=== PATIENT | female | born 1990 | race Hispanic/Latino ===

== ENCOUNTER 2020-02-04 12:16 | Emergency (ER) | payer BC ==
[2020-02-04 13:54] LABS: Absolute Lymphocytes (CBC) 1.5 K/uL (0.7-4.9); Basophils % 0.6 % (0-1.3); Hematocrit 36.4 % (36.0-45.0); Lymphocytes % 17.5 % (15.3-44.8); RBC Red Blood Cell Count 4.34 M/uL (3.86-4.86)
--- NOTE | 2020-02-04 14:30 | RAD REPORT ---
EXAM DESCRIPTION: US - Matter Eval Tm 1 - 02/04/2020 2:00 pm CLINICAL HISTORY: abd cramping, Early . COMPARISON: OB Complete dated 06/02/2017 FINDINGS: A single gestational sac is seen within the uterus. The shape of the sac is within normal limits for gestational age. A single live fetus is present with estimated gestational age of 13 weeks 3 days. Estimated date of delivery is 08/08/2020. Heart rate is 145 BPM. Posterior placenta is seen with evidence of placenta previa The maternal adnexa are within normal limits. Right ovary appears normal with normal blood flow. Left ovary was not well seen due to superimposed bowel gas. IMPRESSION: Single live early intrauterine gestation with estimated gestational age of 13 weeks 3 da ys, MARIE 08/08/2020. Posterior placenta with suspicion for placenta previa. Second-trimester follow-up obstetrical sonogra phy would be suggested.
[2020-02-04 14:35] LABS: BUN Blood Urea Nitrogen 5 mg/dL (7-18); Bicarbonate 23 mmol/L (21-32); Glucose Level 122 mg/dL (74-106); HCG, Quantitative 95183 mIU/mL (1-3); Potassium 3.5 mmol/L (3.5-5.1); Sodium Level 138 mmol/L (136-145)
--- NOTE | 2020-02-04 16:55 | ER ---
Nurse's Notes [facility] Name: Ana Maria Arnold Age: 29 yrs Sex: Female : 1990 Arrival Date: 02/04/2020 Time: 12:19 Bed 7 Private MD: Diagnosis: related conditions, unspecified, second trimester Presentation: 02/03 12:31 Chief complaint: Patient states: 13 weeks . Started having RLQ abdominal ll1 cramping for 3 weeks. Upper abd pain with N/V also. Had embryo transfer November 20. Coronavirus screen: Proceed with normal triage. Patient denies a cough. Patient denies shortness of breath or difficulty breathing. Patient denies measured and/or subjective temperature greater than 100.4F prior to today's visit. Patient denies travel on a cruise ship or to a country the [facility] currently lists as an affected area. Patient denies contact with known and/or suspected case of COVID-19. Ebola Screen: Patient denies travel to an Ebola-affected area in the 21 days before illness onset. Initial Sepsis Screen: Does the patient meet any 2 criteria? No. Patient's initial sepsis screen is negative. Does the patient have a suspected source of infection? No. Patient's initial sepsis screen is negative. Risk Assessment: Do you want to hurt yourself or someone else? Patient reports no desire to harm self or others. Onset of symptoms was January 14, 2020. 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 - Social history:: Smoking status: Patient denies any tobacco usage or history of. Patient/guardian denies using alcohol, street drugs, tobacco products. Screenin:00 Abuse screen: Denies threats or abuse. Nutritional screening: No deficits noted. em Tuberculosis screening: No symptoms or risk factors identified. Fall Risk None identified. Assessment: 13:00 General: Appears in no apparent distress. comfortable, Behavior is calm, cooperative, em appropriate for age, Denies fever. Pain: Complains of pain in right inguinal area Pain currently is 2 out of 10 on a pain scale. Pain began 3-4 weeks. Neuro: Level of Consciousness is awake, alert, obeys commands, Oriented to person, place, time, situation, Appropriate for age. Cardiovascular: Capillary refill < 3 seconds Patient's skin is warm and dry. Respiratory: Airway is patent Respiratory effort is even, unlabored, Respiratory pattern is regular, symmetrical. GI: Abdomen is flat, Bowel sounds present X 4 quads. Abd is soft and non tender X 4 quads. Reports constipation, nausea, Patient currently denies abdominal pain, vomiting. : Denies burning with urination, discharge, vaginal bleeding. Derm: Skin is intact, is healthy with good turgor, Skin is pink, warm \T\ dry. Musculoskeletal: Capillary refill < 3 seconds, Range of motion: intact in all extremities. 14:00 Reassessment: Patient appears in no apparent distress at this time. Patient and/or em family updated on plan of care and expected duration. Pain level reassessed. Patient is alert, oriented x 3, equal unlabored respirations, skin warm/dry/pink. 15:00 Reassessment: Patient appears in no apparent distress at this time. Patient and/or em family updated on plan of care and expected duration. Pain level reassessed. Patient is alert, oriented x 3, equal unlabored respirations, skin warm/dry/pink. 16:00 Reassessment: Patient appears in no apparent distress at this time. Patient and/or em family updated on plan of care and expected duration. Pain level reassessed. Patient is alert, oriented x 3, equal unlabored respirations, skin warm/dry/pink. Vital Signs: 12:31 BP 129 / 87; Pulse 88; Resp 16; Temp 99.1; Pulse Ox 100% ; Pain 2/10; ll1 15:00 BP 114 / 75; Pulse 66; Resp 18; Pulse Ox 99% on R/A; em 16:00 BP 117 / 77; Pulse 63; Resp 16; Pulse Ox 99% on R/A; em ED Course: 12:19 Patient arrived in ED. ag5 12:31 Pedro Bethea MD is Attending Physician. mh7 12:33 Triage completed. ll1 12:34 Arm band placed on Patient placed in an exam room, on a stretcher. ll1 12:40 Aniceto Díaz, RN is Primary Nurse. em 13:00 Patient has correct armband on for positive identification. Bed in low position. Call em light in reach. Pulse ox on. NIBP on. 13:57 Matter Eval Tm 1 In Process Unspecified. EDMS 14:03 Ultrasound completed. Patient tolerated well. Notified ED Physician marisol. sg3 16:46 No provider procedures requiring assistance completed. IV discontinued, intact, em bleeding controlled, No redness/swelling at site. Pressure dressing applied. Administered Medications: No medications were administered Outcome: 16:25 Discharge ordered by MD. reyes 16:49 Discharged to home ambulatory. em 16:49 Condition: stable 16:49 Discharge instructions given to patient, Instructed on discharge instructions, follow up and referral plans. Demonstrated understanding of instructions, follow-up care. 16:49 Patient left the ED. em Signatures: Dispatcher [employer] EDAniceto Kincaid, RN RN Linn Sanchez sg3 Breanna Manley [facility] Alena Thurston RN RN ll1 Pedro Bethea MD MD [facility]
--- NOTE | 2020-02-04 16:56 | EDPHYS ---
Physician Documentation [facility] Name: Ana Maria Arnold Age: 29 yrs Sex: Female : 1990 Arrival Date: 02/04/2020 Time: 12:19 Bed 7 Private MD: ED Physician Pedro Bethea HPI: 02/03 13:39 This 29 yrs old Female presents to ER via Ambulatory with complaints of mh7 Abdominal Pain, Pelvic Pain, 13 Wks Preg. 13:39 The patient presents to the emergency department with possible uterine contractions, mh7 abdominal pain, of the suprapubic area and right lower quadrant, that started 5 day(s) ago, Has had pain intermittently for 3-4 weeks, described as intermittent, sharp. The estimated gestational age is 13 weeks. course: care: private OB physician, Leakage of Fluid: none appreciated, Ultrasound: the patient had an ultrasound, Risk/complications: no obvious risks or complications are appreciated. Previous pregnancies: in previous pregnancies patient has had vaginal delivery, no complications. Associated signs and symptoms: Pertinent negatives: chest pain, diarrhea, dysuria, fever, frequency, nausea, ruptured membranes, seizure, shortness of breath, vaginal bleeding, vaginal discharge, vomiting. 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 - Social history:: Smoking status: Patient denies any tobacco usage or history of. Patient/guardian denies using alcohol, street drugs, tobacco products. ROS: 13:39 Constitutional: Negative for fever, chills, and weight loss, Eyes: Negative for injury, mh7 pain, redness, and discharge, ENT: Negative for injury, pain, and discharge, Neck: Negative for injury, pain, and swelling, Cardiovascular: Negative for chest pain, palpitations, and edema, Respiratory: Negative for shortness of breath, cough, wheezing, and pleuritic chest pain, Back: Negative for injury and pain, : Negative for injury, bleeding, discharge, and swelling, MS/Extremity: Negative for injury and deformity, Skin: Negative for injury, rash, and discoloration, Neuro: Negative for headache, weakness, numbness, tingling, and seizure, Psych: Negative for depression, anxiety, suicide ideation, homicidal ideation, and hallucinations, Allergy/Immunology: Negative for hives, rash, and allergies, Endocrine: Negative for neck swelling, polydipsia, polyuria, polyphagia, and marked weight changes, Hematologic/Lymphatic: Negative for swollen nodes, abnormal bleeding, and unusual bruising. Exam: 13:39 Constitutional: This is a well developed, well nourished patient who is awake, alert, mh7 and in no acute distress. Head/Face: Normocephalic, atraumatic. Eyes: Pupils equal round and reactive to light, extra-ocular motions intact. Lids and lashes normal. Conjunctiva and sclera are non-icteric and not injected. Cornea within normal limits. Periorbital areas with no swelling, redness, or edema. ENT: Nares patent. No nasal discharge, no septal abnormalities noted. Tympanic membranes are normal and external auditory canals are clear. Oropharynx with no redness, swelling, or masses, exudates, or evidence of obstruction, uvula midline. Mucous membranes moist. Neck: Trachea midline, no thyromegaly or masses palpated, and no cervical lymphadenopathy. Supple, full range of motion without nuchal rigidity, or vertebral point tenderness. No Meningismus. Chest/axilla: Normal chest wall appearance and motion. Nontender with no deformity. No lesions are appreciated. Cardiovascular: Regular rate and rhythm with a normal S1 and S2. No gallops, murmurs, or rubs. Normal PMI, no JVD. No pulse deficits. Respiratory: Lungs have equal breath sounds bilaterally, clear to auscultation and percussion. No rales, rhonchi or wheezes noted. No increased work of breathing, no retractions or nasal flaring. Back: No spinal tenderness. No costovertebral tenderness. Full range of motion. 13:39 Skin: Warm, dry with normal turgor. Normal color with no rashes, no lesions, and no evidence of cellulitis. MS/ Extremity: Pulses equal, no cyanosis. Neurovascular intact. Full, normal range of motion. Neuro: Awake and alert, GCS 15, oriented to person, place, time, and situation. Cranial nerves II-XII grossly intact. Motor strength 5/5 in all extremities. Sensory grossly intact. Cerebellar exam normal. Normal gait. Psych: Awake, alert, with orientation to person, place and time. Behavior, mood, and affect are within normal limits. 13:39 Abdomen/GI: Inspection: abdomen appears normal, Bowel sounds: normal, in all quadrants, Palpation: mild abdominal tenderness, in the right lower quadrant and suprapubic area, Rectal exam: the exam is deferred, because of patient request, Indicators: McBurney's point is not tender, Link's sign is negative, Rovsing's sign is negative, Obturator sign is negative, Psoas sign is negative, Liver: no appreciated palpable abnormalities, Hernia: not appreciated. Vital Signs: 12:31 BP 129 / 87; Pulse 88; Resp 16; Temp 99.1; Pulse Ox 100% ; Pain 2/10; ll1 15:00 BP 114 / 75; Pulse 66; Resp 18; Pulse Ox 99% on R/A; em 16:00 BP 117 / 77; Pulse 63; Resp 16; Pulse Ox 99% on R/A; em MDM: 13:14 Patient medically screened. mh7 16:22 Differential diagnosis: retained Ab, missed Ab, ectopic , ovarian cyst, mh7 pain. Data reviewed: vital signs, nurses notes, lab test result(s), Beta HCG: CBC, electrolytes, urinalysis, radiologic studies, ultrasound. Data interpreted: Pulse oximetry: on room air is 100 %. Interpretation: normal. Counseling: I had a detailed discussion with the patient and/or guardian regarding: the historical points, exam findings, and any diagnostic results supporting the discharge/admit diagnosis, lab results, radiology results, the need for outpatient follow up, to return to the emergency department if symptoms worsen or persist or if there are any questions or concerns that arise at home. 02/04 07:25 ED course: Well appearing, NAD, VSS. No abdominal/pelvic pain, nausea, vomiting or mh7 other complaints. Discussed all test results and findings with the patient and answered all of her questions. She will follow up with her doctor but agreed to return to the ED if worsening of symptoms or other concerns.. 02/03 13:31 Order name: Urine Dipstick--Ancillary (enter results) em1 02/03 13:31 Order name: Urine --Ancillary (enter results) em1 02/03 13:17 Order name: IV Saline Lock; Complete Time: 13:31 [facility] 02/03 13:17 Order name: US Transvaginal Ob [facility] 02/03 13:46 Order name: Basic Metabolic Panel [facility] 02/03 13:47 Order name: HCG, Quantitative [facility] 02/03 13:47 Order name: CBC with Automated Diff; Complete Time: 14:37 [facility] 02/03 13:47 Order name: ABO/RH typing [facility] 02/03 13:57 Order name: Matter Eval Tm 1 [facility] 02/03 13:17 Order name: Labs collected and sent; Complete Time: 13:31 [facility] 02/03 13:17 Order name: Urine Dipstick-Ancillary (obtain specimen); Complete Time: 13:20 [facility] 02/03 13:17 Order name: Urine Test (obtain specimen); Complete Time: 13:20 [facility] Administered Medications: No medications were administered Disposition: 02/04/20 16:25 Discharged to Home. Impression: related conditions, unspecified, second trimester. - Condition is Stable. - Discharge Instructions: Abdominal Pain During , [id number]. - Medication Reconciliation Form, Thank You Letter, Antibiotic Education, Prescription Opioid Use form. - Follow up: Private Physician; When: 2 - 3 days; Reason: Worsening of condition, Re-evaluation by your physician. - Problem is an ongoing problem. - Symptoms have improved. Signatures: Dispatcher [employer] [facility] Aniceto Díaz RN RN em Lewis, Lynsay, RN RN ll1 Pedro Bethea MD MD 7 Corrections: (The following items were deleted from the chart) 02/03 13:57 13:27 TRANSVAG OB ordered. [facility] 16:49 16:25 02/04/2020 16:25 Discharged to Home. Impression: related conditions, em unspecified, second trimester. Condition is Stable. Forms are Medication Reconciliation Form, Thank You Letter, Antibiotic Education, Prescription Opioid Use. Follow up: Private Physician; When: 2 - 3 days; Reason: Worsening of condition, Re-evaluation by your physician. Problem is an ongoing problem. Symptoms have improved. [facility]
[2020-02-04 17:19] VITALS: TEMP 99.1
[2020-02-04 17:23] VITALS: O2SAT 99
[2020-02-04 17:24] VITALS: BP 117/77
[2020-02-04 18:18] LABS: Urine Blood NEGATIVE (NEG); Urine Glucose TRACE (NEG); Urine Protein NEGATIVE (NEG); Urine Specific Gravity 1.025 (1.005-1.030)
== END 2020-02-04 16:49 | disposition home or self-care (01) ==
LOC: ER 12:16
DX: O26.891 Other specified pregnancy related conditions, first trimester (principal); Z3A.13 13 weeks gestation of pregnancy
CPT/HCPCS: 36415; 76801; 80048; 81003; 81025; 84702; 85025; 86900; 86901; 99283

== ENCOUNTER 2020-02-16 10:54 | Emergency (ER) | payer BC ==
[2020-02-16 12:23] LABS: Urine Blood NEGATIVE (NEG); Urine Glucose NEGATIVE (NEG); Urine Protein NEGATIVE (NEG); Urine Specific Gravity 1.025 (1.005-1.030); Urine pH 8.5 (5.0-7.0)
[2020-02-16] MEDS ORDERED: ONDANSETRON 4 MG/2 ML VIAL ONE (12:27)
[2020-02-16] MEDS ORDERED: NA CHLORIDE 0.9% 500 ML ONE (12:27)
[2020-02-16] MEDS ORDERED: CODEINE 30MG/APAP 300MG TAB ONE (12:27)
--- NOTE | 2020-02-16 12:41 | RAD REPORT ---
EXAM DESCRIPTION: US - Abdomen Exam Limited - 02/16/2020 12:36 pm CLINICAL HISTORY: Abdominal pain. COMPARISON: None. FINDINGS: The gallbladder wall is not thickened. A gallstone is not seen. The biliary tree is normal caliber. IMPRESSION: Unremarkable gallbladder ultrasound.
[2020-02-16 12:43] LABS: Basophils % 0.7 % (0-1.3); Hematocrit 35.5 % (36.0-45.0); Lymphocytes % 20.6 % (15.3-44.8); RBC Red Blood Cell Count 4.28 M/uL (3.86-4.86)
[2020-02-16 12:57] LABS: ALT/SGPT 17 U/L (12-78); AST/SGOT 14 U/L (15-37); Albumin 2.9 g/dL (3.4-5.0); Alkaline Phosphatase 67 U/L (45-117); BUN Blood Urea Nitrogen 4 mg/dL (7-18); Bicarbonate 24 mmol/L (21-32); Bilirubin Direct < 0.1 mg/dL (0-0.2); Bilirubin Total 0.2 mg/dL (0.2-1.0); Glucose Level 81 mg/dL (74-106); Lipase 73 U/L (73-393); Potassium 3.6 mmol/L (3.5-5.1); Protein, Total 7.3 g/dL (6.4-8.2); Sodium Level 139 mmol/L (136-145)
--- NOTE | 2020-02-16 15:06 | ER ---
Nurse's Notes [facility] Name: Ana Maria Ibarra Age: 29 yrs Sex: Female : 1990 Arrival Date: 02/16/2020 Time: 10:57 Bed 17 Private MD: Diagnosis: Abdominal and pelvic pain Presentation: 02/15 11:12 Chief complaint: Patient states: mid abd pain since 0700 today, denies n/v/d, last BM iw was yesterday and normal, denies urinary s/s, pain is sharp, constant and worse when she breathes or moves a certain way. Pt is approx 15 weeks , denies vaginal bleeding, is being seen by Dr. ibarra in [place]. Coronavirus screen: Proceed with normal triage. Patient denies a cough. Patient denies shortness of breath or difficulty breathing. Patient denies measured and/or subjective temperature greater than 100.4F prior to today's visit. Patient denies travel on a cruise ship or to a country the [facility] currently lists as an affected area. Patient denies contact with known and/or suspected case of COVID-19. Ebola Screen: Patient negative for fever greater than or equal to 101.5 degrees Fahrenheit, and additional compatible Ebola Virus Disease symptoms Patient denies exposure to infectious person. Patient denies travel to an Ebola-affected area in the 21 days before illness onset. No symptoms or risks identified at this time. Initial Sepsis Screen: Does the patient meet any 2 criteria? No. Patient's initial sepsis screen is negative. Does the patient have a suspected source of infection? No. Patient's initial sepsis screen is negative. Risk Assessment: Do you want to hurt yourself or someone else? Patient reports no desire to harm self or others. Onset of symptoms was February 16, 2020. 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 - Social history:: Smoking status: Patient denies any tobacco usage or history of. Screenin:15 Abuse screen: Denies threats or abuse. Denies injuries from another. Nutritional ca1 screening: No deficits noted. Tuberculosis screening: No symptoms or risk factors identified. Fall Risk IV access (20 points). Assessment: 12:15 General: Appears in no apparent distress. comfortable, Behavior is calm, cooperative, ca1 appropriate for age. Pain: Complains of pain in umbilical area Pain does not radiate. Pain currently is 7 out of 10 on a pain scale. Pain began 0700 today Is continuous, Aggravated by repositioning. Neuro: Level of Consciousness is awake, alert, obeys commands, Oriented to person, place, time, situation. Cardiovascular: Capillary refill < 3 seconds Patient's skin is warm and dry. Pulses are all present. Respiratory: Airway is patent Respiratory effort is even, unlabored, Respiratory pattern is regular, symmetrical, Breath sounds are clear bilaterally. GI: Abdomen is round non-distended, Bowel sounds present X 4 quads. Abd is soft X 4 quads Abdomen is tender to palpation in umbilical area. : No signs and/or symptoms were reported regarding the genitourinary system. EENT: No signs and/or symptoms were reported regarding the EENT system. Derm: Skin is intact, is healthy with good turgor, Skin is pink, warm \T\ dry. Musculoskeletal: Circulation, motion, and sensation intact. Capillary refill < 3 seconds. 12:33 Reassessment: PT to US. ca1 13:02 Reassessment: Patient appears in no apparent distress at this time. Patient and/or ca1 family updated on plan of care and expected duration. Pain level reassessed. Patient is alert, oriented x 3, equal unlabored respirations, skin warm/dry/pink. 14:05 Reassessment: Patient appears in no apparent distress at this time. Patient is alert, ca1 oriented x 3, equal unlabored respirations, skin warm/dry/pink. 15:00 Reassessment: Patient appears in no apparent distress at this time. Patient and/or ca1 family updated on plan of care and expected duration. Pain level reassessed. Patient is alert, oriented x 3, equal unlabored respirations, skin warm/dry/pink. 15:55 Reassessment: Patient appears in no apparent distress at this time. Patient is alert, ca1 oriented x 3, equal unlabored respirations, skin warm/dry/pink. Patient states feeling better. Vital Signs: 11:12 BP 125 / 82; Pulse 74; Resp 16; Temp 98.2; Pulse Ox 100% on R/A; Weight 71.67 kg; iw Height 5 ft. 1 in. (154.94 cm); Pain 7/10; 13:02 BP 100 / 67; Pulse 77; Resp 18 S; Pulse Ox 100% on R/A; ca1 14:12 BP 114 / 63; Pulse 56; Resp 16 S; Pulse Ox 100% on R/A; ca1 15:00 BP 119 / 65; Pulse 61; Resp 17 S; Pulse Ox 100% on R/A; ca1 15:55 BP 115 / 71; Pulse 68; Resp 15 S; Pulse Ox 100% on R/A; ca1 11:12 Body Mass Index 29.85 (71.67 kg, 154.94 cm) iw ED Course: 10:57 Patient arrived in ED. as 11:14 Triage completed. iw 11:15 Arm band placed on. iw 11:39 Wan Jimenez MD is Attending Physician. kdr 12:02 Annabel Paul RN is Primary Nurse. ca1 12:15 Patient has correct armband on for positive identification. Placed in gown. Bed in low ca1 position. Call light in reach. Side rails up X 1. Pulse ox on. NIBP on. Warm blanket given. 12:20 Inserted saline lock: 20 gauge in right antecubital area, using aseptic technique. ca1 ,using aseptic technique. by Ruben restorative care technician Blood collected. 12:20 Initial lab(s) drawn, by ED staff, sent to lab. ca1 12:36 US Abdomen Limited In Process Unspecified. EDMS 15:56 No provider procedures requiring assistance completed. IV discontinued, intact, ca1 bleeding controlled, No redness/swelling at site. Pressure dressing applied. Administered Medications: 12:10 Drug: Tylenol #3 (300 mg-30 mg) 2 tabs {Note: rass 0.} Route: PO; ca1 13:00 Follow up: Response: No adverse reaction; Pain is decreased; RASS: Alert and Calm (0) ca1 12:20 Drug: NS 0.9% 500 ml Route: IV; Rate: bolus; Site: right antecubital; ca1 13:00 Follow up: Response: No adverse reaction; IV Status: Completed infusion ca1 12:22 Drug: Zofran (Ondansetron) 4 mg Route: IVP; Site: right antecubital; ca1 13:20 Follow up: Response: No adverse reaction; Nausea is decreased ca1 Outcome: 15:04 Discharge ordered by . kdr 15:56 Discharged to home ambulatory. ca1 15:56 Condition: stable 15:56 Discharge instructions given to patient, Instructed on discharge instructions, follow up and referral plans. Demonstrated understanding of instructions, follow-up care. 15:56 Patient left the ED. ca1 Signatures: Dispatcher [employer] EDMS Wan Jimenez MD MD kdr Stacey Day Irene, RN RN iw Beverly, CHASIDY Jin RN ca1 Ruben Keller count includes the [facility] Corrections: (The following items were deleted from the chart) 11:15 11:12 Chief complaint: Patient states: mid abd pain since 0700 today, denies n/v/d, iw last BM was yesterday and normal, denies urinary s/s, pain is sharp, constant and worse when she breathes or moves a certain way iw 12:31 12:28 Inserted saline lock: 20 gauge in right antecubital area, using aseptic ca1 technique. dh4 12:31 12:20 Inserted saline lock: 20 gauge in right antecubital area, using aseptic ca1 technique. ca1 12:31 12:31 Initial lab(s) drawn, by ED staff, sent to lab. ca1 ca1
--- NOTE | 2020-02-16 15:06 | EDPHYS ---
Physician Documentation [facility] Name: Ana Maria Arnold Age: 29 yrs Sex: Female : 1990 Arrival Date: 02/16/2020 Time: 10:57 Bed 17 Private MD: ED Physician Wan Jimenez HPI: 02/15 12:20 This 29 yrs old Female presents to ER via Ambulatory with complaints of kdr Abdominal Pain. 12:20 The patient presents with abdominal pain in the epigastric area. Onset: The kdr symptoms/episode began/occurred suddenly, this morning. The symptoms do not radiate. Associated signs and symptoms: Pertinent positives: nausea, Pertinent negatives: anorexia, blood in stools, chest pain, constipation, diarrhea, dysuria, fever, palpitations, shortness of breath, vaginal discharge, vomiting. The symptoms are described as achy, constant, sharp, steady. Modifying factors: The symptoms are alleviated by remaining still, the symptoms are aggravated by movement. Severity of pain: At its worst the pain was severe incapacitating just prior to arrival, in the emergency department the pain is unchanged. The patient has not experienced similar symptoms in the past. 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 SAMPLE SEWER: 11:15 5, Full Term 3, Premature 0, 1, Living 3, LMP 10/2019 iw Historical: - Allergies: 11:14 No Known Allergies; iw - Home Meds: 11:14 Vitamin 27-0.8 mg Oral tab 1 tab once daily [Active]; iw - PMHx: 11:15 None; iw - PSHx: 11:14 breast reduction; iw - Immunization history:: Adult Immunizations. - Social history:: Smoking status: Patient denies any tobacco usage or history of. ROS: 12:20 Constitutional: Negative for fever, chills, and weight loss, Eyes: Negative for injury, kdr pain, redness, and discharge, ENT: Negative for injury, pain, and discharge, Neck: Negative for injury, pain, and swelling, Cardiovascular: Negative for chest pain, palpitations, and edema, Respiratory: Negative for shortness of breath, cough, wheezing, and pleuritic chest pain, Back: Negative for injury and pain, : Negative for injury, bleeding, discharge, and swelling, MS/Extremity: Negative for injury and deformity, Skin: Negative for injury, rash, and discoloration, Neuro: Negative for headache, weakness, numbness, tingling, and seizure activity. Psych: Negative for depression, anxiety, suicide ideation, homicidal ideation, and hallucinations, Allergy/Immunology: Negative for hives, rash, and allergies, Endocrine: Negative for neck swelling, polydipsia, polyuria, polyphagia, and marked weight changes, Hematologic/Lymphatic: Negative for swollen nodes, abnormal bleeding, and unusual bruising. 12:20 Abdomen/GI: Positive for abdominal pain, nausea, Negative for vomiting, diarrhea, constipation, abdominal cramps, abdominal distension, anorexia, dysphagia, hematemesis, black/tarry stool, rectal pain, rectal bleeding, bowel incontinence. Exam: 12:20 Constitutional: This is a well developed, well nourished patient who is awake, alert, kdr and in mild distress. Head/Face: Normocephalic, atraumatic. Eyes: Pupils equal round and reactive to light, extra-ocular motions intact. Lids and lashes normal. Conjunctiva and sclera are non-icteric and not injected. Cornea within normal limits. Periorbital areas with no swelling, redness, or edema. Neck: Trachea midline, no thyromegaly or masses palpated, and no cervical lymphadenopathy. Supple, full range of motion without nuchal rigidity, or vertebral point tenderness. No Meningismus. Chest/axilla: Normal chest wall appearance and motion. Nontender with no deformity. No lesions are appreciated. Cardiovascular: Regular rate and rhythm with a normal S1 and S2. No gallops, murmurs, or rubs. Normal PMI, no JVD. No pulse deficits. Respiratory: Lungs have equal breath sounds bilaterally, clear to auscultation and percussion. No rales, rhonchi or wheezes noted. No increased work of breathing, no retractions or nasal flaring. Back: No spinal tenderness. No costovertebral tenderness. Full range of motion. Skin: Warm, dry with normal turgor. Normal color with no rashes, no lesions, and no evidence of cellulitis. MS/ Extremity: Pulses equal, no cyanosis. Neurovascular intact. Full, normal range of motion. Neuro: Awake and alert, GCS 15, oriented to person, place, time, and situation. Cranial nerves II-XII grossly intact. Motor strength 5/5 in all extremities. Sensory grossly intact. Cerebellar exam normal. Normal gait. Psych: Awake, alert, with orientation to person, place and time. Behavior, mood, and affect are within normal limits. Vital Signs: 11:12 BP 125 / 82; Pulse 74; Resp 16; Temp 98.2; Pulse Ox 100% on R/A; Weight 71.67 kg; iw Height 5 ft. 1 in. (154.94 cm); Pain 7/10; 13:02 BP 100 / 67; Pulse 77; Resp 18 S; Pulse Ox 100% on R/A; ca1 14:12 BP 114 / 63; Pulse 56; Resp 16 S; Pulse Ox 100% on R/A; ca1 15:00 BP 119 / 65; Pulse 61; Resp 17 S; Pulse Ox 100% on R/A; ca1 15:55 BP 115 / 71; Pulse 68; Resp 15 S; Pulse Ox 100% on R/A; ca1 11:12 Body Mass Index 29.85 (71.67 kg, 154.94 cm) iw MDM: 15:04 Patient medically screened. kdr 15:32 Data reviewed: vital signs, nurses notes, lab test result(s), radiologic studies. kdr Counseling: I had a detailed discussion with the patient and/or guardian regarding: the historical points, exam findings, and any diagnostic results supporting the discharge/admit diagnosis, lab results, radiology results, the need for outpatient follow up. ED course: The patient was improved but not resolved at time of discharge. She had T#3 at home and did not require further pain medication or Rx on discharge. She was otherwise happy with the care provided and the plan for discharge and follow-up. 02/15 12:12 Order name: Basic Metabolic Panel; Complete Time: 13:57 kdr 02/15 12:12 Order name: CBC with Diff; Complete Time: 13:57 kdr 02/15 12:12 Order name: Hepatic Function; Complete Time: 13:57 kdr 02/15 12:12 Order name: Lipase; Complete Time: 13:57 kdr 02/15 12:13 Order name: Urine Dipstick--Ancillary (enter results); Complete Time: 12:39 em1 02/15 12:13 Order name: Urine --Ancillary (enter results); Complete Time: 12:39 em1 02/15 12:12 Order name: IV Saline Lock; Complete Time: 12:33 kdr 02/15 12:12 Order name: Labs collected and sent; Complete Time: 12:33 kdr 02/15 12:12 Order name: US Abdomen Limited; Complete Time: 13:57 kdr Administered Medications: 12:10 Drug: Tylenol #3 (300 mg-30 mg) 2 tabs {Note: rass 0.} Route: PO; ca1 13:00 Follow up: Response: No adverse reaction; Pain is decreased; RASS: Alert and Calm (0) ca1 12:20 Drug: NS 0.9% 500 ml Route: IV; Rate: bolus; Site: right antecubital; ca1 13:00 Follow up: Response: No adverse reaction; IV Status: Completed infusion ca1 12:22 Drug: Zofran (Ondansetron) 4 mg Route: IVP; Site: right antecubital; ca1 13:20 Follow up: Response: No adverse reaction; Nausea is decreased ca1 Disposition: 02/16/20 15:04 Discharged to Home. Impression: Abdominal and pelvic pain. - Condition is Stable. - Discharge Instructions: Abdominal Pain, Adult, [id number]. - Medication Reconciliation Form, Thank You Letter, Prescription Opioid Use form. - Follow up: Private Physician; When: 2 - 3 days; Reason: If symptoms return, Further diagnostic work-up, Recheck today's complaints, Continuance of care, Re-evaluation by your physician. - Problem is new. - Symptoms have improved. Signatures: Dispatcher [employer] EDMS Wan Jimenez MD MD kdr Mariela Lazcano RN RN iw Annabel Paul RN RN ca1 Corrections: (The following items were deleted from the chart) 15:56 15:04 02/16/2020 15:04 Discharged to Home. Impression: Abdominal and pelvic pain. ca1 Condition is Stable. Forms are Medication Reconciliation Form, Thank You Letter, Antibiotic Education, Prescription Opioid Use. Follow up: Private Physician; When: 2 - 3 days; Reason: If symptoms return, Further diagnostic work-up, Recheck today's complaints, Continuance of care, Re-evaluation by your physician. Problem is new. Symptoms have improved. kdr
[2020-02-16 16:17] VITALS: TEMP 98.2; O2SAT 100
[2020-02-16 16:22] VITALS: BP 115/71
== END 2020-02-16 15:56 | disposition home or self-care (01) ==
LOC: ER 10:54
DX: O26.892 Other specified pregnancy related conditions, second trimester (principal); R10.2 Pelvic and perineal pain
CPT/HCPCS: 96361; 85025; 80048; 36415; 81025; 80076; 81003; 83690; 76705; 96374; 99284; J7040; J2405

== ENCOUNTER 2023-03-27 15:01 | Emergency (ER) | payer BC, OTHER ==
--- OUTSIDE RECORDS SUMMARY | 2023-03-27 15:03 | XMS REPORT | Continuity of Care Document ---
:1990 Author Organization [facility] t Address [address] [facility]. [address] [place] [address] Care Team Providers Name Role Phone Maria Arnold Attending Clinician Unavailable Maria Arnold Admitting Clinician Unavailable Physician, No Primary or Family Admitting Clinician Unavaila ble Payers Payer Name Policy Type Policy Number Effective Date Expiration Date S ource Problems This patient has no known problems. Allergies, Adverse Reactions, Alerts Allergy Allergy Status Severity Reaction(s) Onset Inactive Treating Comm ents Source Name Type Date Date Clinician No Known DA Active U 2020- [facility] [place] No Known DA Active U 2019- [facility] [place] No Known DA Active U 2020-1 [facility] [place] No Known DA Active U 2019-1 [facility] 09[facility] [place] Medications This patient has no known medications. Procedures Procedure Date / Time Performed Performing Clinician Ana santa [id number] 2020-08-02 00:00:00 COOJA.05 [facility] [id number] 2020-08-02 00:00:00 COOJA.05 [facility] Encounters Start End Encounter Admission Attending Care Care Encounter Source Date/Time Date/Time Type Type Clinicians Facility Department ID 2020-07-15 Inpatient Clayton, [facility] AURELIA [id number] [facility] 13:31:00 Jacquin 60 [facility] 2020-06-13 Inpatient EL Clayton, [facility] LD [id number] [facility] 11:58:00 Jacquin 19 [facility] 2020-07-12 2020-07-12 Outpatient Clayton, [facility] RADI [id number] [facility] 10:00:00 10:00:00 Jacquin 01 [facility] 2020-03-22 2020-03-22 Outpatient Clayton, [facility] RADI [id number] [facility] 10:00:00 10:00:00 Jacquin 75 [facility] 2020-02-27 2020-02-27 Outpatient Clayton, [facility] RADI [id number] [facility] 11:00:00 11:00:00 Jacquin 97 [facility] Results Test Description Test Time Test Comments Results Result Comments Source FALLOPIAN TUBE,BIOPSY 2020-08-06 18:34:00 Test Item Value Reference Range Interpretation Comme nts FALLOPIAN RUN DATE: TUBE,BIOPSY 08/13/20 [facility] PAGE 1 RUN TIME: 1216 Specimen Inquiry RUN USER: INTERFACE (test code = PATIENT: FALLBX) CAITLYN ARNOLD [id number] LOC: FATUMA #: [id number] AGE/SX: 29/F ROOM: [facility] RE08/02/20REG DR: Esther Arnold MD : [birth year] BED: A DIS: 08/05/20 STATUS: DIS IN TLOC: SPEC #: [id number] RECD: 008 STATUS: BLAKE KHALIL #: [id number] OSMAN: 08/03/20- SUBM DR: Maria Arnold MD ENTERED: 08/03/20 SP TYPE: FALLBX OTHR DR: ORDERED: LEVEL IV CODES: Q50064 - FALLOPIAN TUBE PROCEDURES: LEVEL IV (Incomplete) TISSUES: FALLOPIAN TUBE, NOS - LEFT FALLOPIAN TUBE CYSTS CLINICAL HISTORY 29 ye ar old, 39.1 weeks, (kr) FINAL DIAGNOSIS Specimen designated "left fallopian tube cyst": - maribel gn paratubal cyst CPT code(s): 63083 cds/wpd GROSS DESCRIPTION ANATOMIC SOURCE OF TISSUE (per Requis ition): Fallopian tube cyst, left The specimen is received in a formalin-filled container, l abeled with the patient's name and designated "fallopian tube cyst, left". The specimen consists of three semi-translucent obregon-pink cysts ranging from 0.9 to 1.5 cm. The cysts are filled with clear fluid. A sales representative printing supplies section of each cyst is submitted in A1. kaley 08/03/20 Signed Rahul Prince Nader 08/06/20 1834 END OF REPORT HGB [id number] 07:45:00 Test Item Value Reference Range Interpretation Comments HEMOGLOBIN (test code = HGB) 7.2 g/dL 10.7-13.9 L HEMATOCRIT (test code = HCT) 25.4 % 32.1-42.1 L [facility] [id number] 16:34:00 Test Item Value Reference Range Interpretation Comments CREATININE (test code = CREAT) 0.4 mg/dL 0.5-1.0 L SGOT/AST (test code = AST) 28 units/L 15-37 N SGPT/ALT (test code = ALT) 20 units/L 12-78 N LACTIC DEHYDROGENASE(LDH) (test 281 units/L 81-234 H code = LDH) : *URIC [id number] 16:34:00 Test Item Value Reference Range Interpretation Comments URIC ACID (test code = URIC) 2.4 mg/dL 2.6-6.0 L : *BILIRUBIN DIRECT AND [id number] 16:34:00 Test Item Value Reference Range Interpretation Comments BILIRUBIN TOTAL (test code = BILT) 0.3 mg/dL 0.2-1.0 N BILIRUBIN DIRECT (test code = BILD) 0.1 mg/dL <0.2 N BILIRUBIN INDIRECT (test code = 0.2 mg/dL 0.1-1.1 N BILIND) : *COVID 19 Asymptomatic IH [id number] 19:57:00 Test Item Value Reference Range Interpretation Comments COVID 19 NEGATIVE NEGATIVE This test has b een Asymptomatic IH AG authorize d only for the (test code = detection ofpro teins from COVNONPUIAG) SARS-CoV-2, not for any other viruses orpathogens. Ne gative results should be treated as presumptive andconfirmed wi th a molecular assay , if necessary for patientmanageme nt. Negative result s do not rule out COVID- 19 andshould not b e used as the sole basis for treatment orpat ient management deci sions, including infec tion controldecision s. Negative result s should be considered i n thecontext of a patient's recent exposure s, history and thepresence of clinical signs and symptoms consis tent withCOVID-19. T his test has not been FD A cleared or approved; th e test hasbeen authori zed by FDA under an Emerge ncy Use Authorization(E UA) for use by kacie schroeder certified under the CLIA thatmeet the re quirements to perform mode rate, high or waivedcomple xity tests. This margi t is authorized for use at thePoint of Car e (POC), i.e., in patien t care settingsoperati ng under a CLIA Certificat e of Waiver, Certifi deepa ofCompliance, o r Certificate of Accreditation. This test is only authori zed for the duration of thedeclaration that circumstances e xist justifying theauthorizatio n of emergency use o f in vitro diagnostic test sfor detection and/o r diagnosis of CO VID-19 under Iecxhqk99 4(b)(1) of the Act, 21 U.S .C. 360bbb-3(b)(1), unless theauthorizatio n is terminated or r evoked sooner. AG HEPATITIS B [id number] 17:59:00 Test Item Value Reference Range Interpretation Comments AG HEPATITIS B SURFACE (test code NONREACTIVE NONREACTIVE = HBSAG) : *IS CONSENT FORM SIGNED FOR HIV TESTING? YAB [id number] 17:59:00 Test Item Value Reference Range Interpretation Comments AB TREPONEMA (test code = TREPAB) NONREACTIVE NONREACTIVE : *IS CONSENT FORM SIGNED FOR HIV TESTING? YAB HIV 1 17:59:00 Test Item Value Reference Range Interpretation Comments AB HIV 1 2 (test NONREACTIVE NONREACTIVE Done by Sie mens Centaur code = GIB05TC) 4th Gen HIV Ag/Ab Combo Screen : *IS CONSENT FORM SIGNED FOR HIV TESTING? YCBC W/AUTO [id number] 17:00:00 Test Item Value Reference Range Interpretation Comments WHITE BLOOD CELL (test code 8.7 K/mm3 6.6-12.1 N = WBC) RED BLOOD CELL (test code = 4.08 M/mm3 3.45-5.01 N RBC) HEMOGLOBIN (test code = 8.9 g/dL 10.7-13.9 L HGB) HEMATOCRIT (test code = 31.9 % 32.1-42.1 L HCT) MEAN CELL VOLUME (test code 78 fL 84.1-94.8 L = MCV) MEAN CELL HGB (test code = 21.8 pg 27-35 L MCH) MEAN CELL HGB CONCETRATION 27.9 gm/dL 32.2-34.1 L (test code = MCHC) RED CELL DISTRIBUTION WIDTH 18.4 % 12.4-16.5 H (test code = RDW) PLATELET COUNT (test code = 375 K/mm3 133-385 N PLT) MEAN PLATELET VOLUME (test 10.4 fl 9.1-12.7 N code = MPV) NEUTROPHIL % (test code = 70.2 % 56.5-79.4 N NT%) LYMPHOCYTE % (test code = 19.7 % 14.3-34.3 N LY%) MONOCYTE % (test code = 6.0 % 5.1-10.4 N MO%) EOSINOPHIL % (test code = 2.9 % 0.1-3.0 N EO%) BASOPHIL % (test code = 0.7 % 0.1-1.0 N BA%) NEUTROPHIL # (test code = 6.1 K/mm3 NT#) LYMPHOCYTE # (test code = 1.7 K/mm3 LY#) MONOCYTE # (test code = 0.5 K/mm3 MO#) EOSINOPHIL # (test code = 0.25 K/mm3 EO#) BASOPHIL # (test code = 0.1 K/mm3 BA#) RBC MORPHOLOGY REQUIRED ABNORMAL NORMAL +1 A NISOCYTOSIS (test code = RBCM) PLATELET MORPHOLOGY NORMAL NORMAL REQUIRED (test code = PLTMR) - US FLW [id number] 14:30:00 [facility] : 1990 Sex: F Patient Name: CAITLYN ARNOLD Unit No: [id number] EXAMS: CPT CODE: [id number] [place] [address] [facility] [address] [place], [place] [address] OBSTETRICAL ULTRASOUND REPORT Pat. Name: CAITLYN ARNOLD Pat. No: [id number] Study Date: 07/30/2020 1:32pm , Age: 04 1990, 29 Pregnancies: 4, Para 3 LMP: 10/31/2019 GA by LMP: 39w0d GA by 1st: 38w5d GA by US: 39w5d GA Selected: 38w5d (From First S) MARIE: 08/08/2020 Referring MD: Maria Arnold Naphthalene Still Operator: Katya Waldron RDMS CPT4: USPREGFU Admitting MD: Maria Arnold Hist/Ind: SCAN 3 EXCESSIVE GROWTH MEASUREMENTS AGE GROWTH EVALUATION Measurement GA Range Srce %for GA Ratios ----- ---- ------- BPD 9.7 cm 40w3d Hadl BPD FL/BPD 0.79 (0.71 - 0.87) HC 35.6 cm Hadl HC FL/AC 0.20 (0.20 - 0.24* APD 12.1 cm APD HC/AC 0.92 (0.90 - 1.09) TAD 12.6 cm TAD CI 0.80 (0.70 - 0.86) AC 38.8 cm Hadl AC FL 7.7 cm 39w2d (03j0v-50e4h)Hadl FL 58% HL 6.4 cm 37w1d (93o7b-09a4o) Daniel HL 23% GA for sonogram 39w5d (58d3w-83l8p) Weight Estimate: based on (HC,FL) Hadlock Weight: 4451 gm (8177-6071) Hadlo : 9lbs, 13oz Normal: 3130 gm(3402-0788) Brenn Wt% >90 for 38.7 wks Heart Rate: 137 bpm Amniotic Fluid Index: 21.5cm (07.2-23.0) Q1: 5.1cm Q2: 6.3cm Q3: 5.1cm Q4: 4.9cm MATERNAL ANATOMY Ovaries LxHxW (cm) Right 3.4 x 1.2 x 2.2 Vol: 4.7cc Left 3.2 x 1.4 x 2.8 Vol: 6.6cc CLINICAL SUMMARY Type of Gestation: Sanchez Intrauterine invertex presentation. size is large for gestational age. growth: Suspect LGA fetus (>90%) [facility] NAME: CLAYTONCAITLYN Radiology Department PHYS: - Maria Arnold [address] : 1990 AGE: 29 SEX: Travis [place], [place] [address] LOC:RAJAT PHONE #: [phone] EXAM DATE: 07/30/2020 STATUS: PRE IN FAX #: [phone] RAD NO: Page 1 Signed Report (CONTINUED) Patient Name: CAITLYN ARNOLD Unit No: [id number] EXAMS: CPT CODE: [id number] [address] (Continued) motion and organs seen: heart motion seen body and limb movements seen tone noted breathing movements observed Placental location: Pos terior Placental maturity : Grade 2 There is no evidence of placenta previa. Amniotic fluid volume is normal. Uterus and adnexa: No significant abnormality is seen. Thank you for allowing us to participate in the care of this patient. Fernando Keith M.D. Electronic Signature 07/30/2020 02:30pm at 1430 Reported and signed by: Fernando Keith MD CC: Maria Arnold MD Technologist: Katya Waldron RDMS Probe: Trnscrbd D/ (0180) [email or web address] Orig Print D/T: S: 07/30/2020 (1718) [facility] NAME: CLAYTON,PORSHERYLHANY Radiology Department PHYS: VABrandynREBECCA Villalobos ClaytonMaria Friedman Arthur [address] : 1990 AGE: 29 SEX: F [place] [address] LOC: ROMELIAU PHONE#: [phone] EXAM DATE: 07/30/2020 STATUS: PRE IN FAX #: [phone] RAD NO: Page 2 Signed Report Patient Name: CAITLYN ARNOLD Unit No: [id number] EXAMS: CPT CODE: [id number] [place]W UP [address] (Continued) [facility] NAME: CAITLYN ARNOLD Radiology Department PHYS: Roxanna Wilfredo ArnoldMaria Friedman Arthur [address] : 1990 AGE: 29 SEX: F [place], [place] [address] LOC: AnandLDU PHONE #: [phone] EXAM DATE: 07/30/2020 STATUS: PRE IN FAX #: [phone] RAD NO: Page 3 Signed Report- US FLW [id number] 11:08:00 [facility]BI : 1990 Sex: F Patient Name: CAITLYN ARNOLD Unit No: [id number] EXAMS: CPT CODE: [id number] [place] [address] [facility] [address] [place], [place] [address] OBSTETRICAL ULTRASOUND REPORT Pat. Name: CAITLYN ARNOLD Pat. No: [id number] Study Date: 07/12/2020 10:19am , Age: 04 1990, 29 Pregnancies: 4, Para 3 LMP: Unknown GA by 1st: 36w1d GA by US: 38w2d GA Selected: 36w1d (From First S) MARIE: 08/08/2020 Referring MD: Maria Arnold Naphthalene Still Operator: Janny Carolina RDMS, T CPT4: USPREGFU Admitting MD: Maria Arnold Hist/Ind: SCAN 1 SIZE AND DATES MEASUREMENTS AGE GROWTH EVALUATION Measurement GA Range Srce %for GA Ratios ----- ---- ------- BPD 9.4 cm 39w0d (48t6n-75n1m) Hadl BPD92% FL/BPD 0.76 (0.71 - 0.87) HC 35.3 cm Hadl HC FL/AC 0.20 (0.20 - 0.24* APD 11.5 cm APD HC/AC 0.98(0.92 - 1.11) TAD 11.5 cm TAD CI 0.77 (0.70 - 0.86) AC 36.1 cm 40w2d (26f1c-68q0g) Hadl AC >95 FL7.1 cm 36w2d (37a8t-92f9t) Hadl FL 51% HL 6.4 cm 37w1d (64y9w-62z0n) Daniel HL 66% GA for sonogram 38w2d (28f3l-06s9l) Weight Estimate: based on (BPD,HC,AC,FL) Hadlock Weight: 3713 gm (8493-9453) Hadlo : 8lbs, 2oz Normal: 2681 gm (4234-4491) Brenn Wt% >90 for 36.1 wks Cervical Length: 4.2 cm Heart Rate: 149 bpm Amniotic Fluid Index: 22.6cm (07.7-24.8) Q1: 7.0cm Q2: 5.7cm Q3: 4.9cm Q4: 5.0cm MATERNAL ANATOMY Ovaries LxHxW (cm) Right 4.8 x 1.5 x 2.3 Vol: 8.7cc Left 3.8 x 1.4 x 2.1 Vol: 5.8cc CLINICAL SUMMARY Type of Gestation: Sanchez Intrauterine in vertex presentation. size is large for gestational age. growth: Suspect LGA fetus (>90%) [facility] NAME: ZAHRAA ARNOLDHANY Radiology Department PHYS: - Maria Arnold [address] : 1990 AGE: 29 SEX: F [place] [address] LOC: AnandRAD PHONE #: [phone] EXAM DATE: 07/12/2020 STATUS: PRE CLI FAX #: [phone] RAD NO: Page 1 Signed Report (CONTINUED) Patient Name: CAITLYN ARNOLD Unit No: [id number] EXAMS: CPT CODE: [id number] US FLW UP [address] (Continued) Fet al motion and organs seen: heart motion seen body and limb movements observed tone noted breathing movements observed abnormalities observed: None seen at this exam Placental location: Posterior Placental maturity : Grade 2 There is no evidence of placenta previa. Amniotic fluid volume is within the upper range of normal. Uterus and adnexa: No significant abnormality is seen. Thank you for allowing us to participate in the care of this patient. Arnaud Valdez M.D Electronic Signature 07/12/2020 11:08am at 1108 Reported and signed by: Arnaud Valdez MD CC: Maria Arnold MD Technologist: Janny Carolina RDMS, RVT Probe: Trnscrbd D/ (1108) [email or web address] Orig Print D/T: S: 07/12/2020 (1108) [facility] NAME: ZAHRAA ARNOLDHANY Radiology Department PHYS: - Maria Arnold [address] : 1990 AGE: 29 SEX: F [place] [id number] LOC: AnandRAD PHONE #: [phone] EXAM DATE: 07/12/2020 STATUS: PRE CLI FAX #: [phone] RAD NO: Page 2 Signed Report Patient Name: CAITLYN ARNOLD Unit No: [id number] EXAMS: CPT CODE: [id number] US FLW UP [address] (Continued) [facility] NAME: CAITLYN ARNOLD Radiology Department PHYS: TIMOTHY.05 - Maria Arnold [address] : 1990 AGE: 29 SEX: [place] [address] LOC: AnandRAD PHONE #: [phone] EXAM DATE: 07/12/2020 STATUS: PRE CLI FAX #: [phone] RAD NO: Page 3 Signed Report- US PREG UT [id number] 11:13:00 Patient Name: CAITLYN ARNOLD Unit No: [id number] EXAMS: CPT CODE: [id number] US PREG UT TRANSVAGINAL [address] [facility] [address] [place], [place] [address] OBSTETRICAL ULTRASOUND REPORT ---- Pat. Name: CAITLYN ARNOLD Pat. No: [id number] Study Date: 03/22/2020 10:15am , Age: 04 1990, 29 Pregnancies: 4, Para 3 LMP: Unknown GA by US: 20w0d GA Selected: 20w1d (From Known E) MARIE: 08/08/2020 Referring MD: Maria Arnold Naphthalene Still Operator: Sophia Sher RDMS CPT4: USPRUTTRVG Admitting MD: Maria Arnold Hist/Ind: SCAN 1 ANATOMY MEASUREMENTS AGE GROWTH EVALUATION Measurement GA Range Srce %for GA Ratios ----- ---- ------- BPD 4.5 cm 19w4d (53e1z-71z6d) Hadl BPD 23% FL/BPD 0.73 HC 18.0 cm 20w2d (18w5d- 22w0d) Hadl HC 55% FL/AC 0.21 APD 4.9 cm APD HC/AC 1.16 (1.06 - 1.24) TAD 5.0 cm TAD CI 0.71 (0.70 - 0.86) AC 15.6 cm 20w3d (68o2a-93m4u) Hadl AC 57% FL 3.3 cm 20w0d (13f9i-35l4y) Hadl FL 46% HL 3.2 cm 20w5d (13r2h-25j4e) Daniel HL 59% GA for sonogram 20w0d (06l0x-28q3o) Weight Estimate: based on (BPD,HC,AC,FL) Hadlock Weight: 357 gm (305-409) Hadlock : 0lbs, 12oz Cervical Length: 4.7 cm Heart Rate: 152 bpm MATERNAL ANATOMY O varies LxHxW (cm) Right 2.7 x 2.0 x 2.2 Vol: 6.2cc Left 2.9 x 1.3 x 2.3 Vol: 4.5cc CLINICAL SUMMARY Type of Gestation: Sanchez Intrauterine in transverse presentation. size is appropriate for gestational age. growth: Consistent with normal growth motion and organs seen: heart motion seen body and limb movements seen Four chamber heart observed Left ventricular outflow tract (LVOT) seen [facility] NAME: CLAYTONCAITLYN Radiology Department PHYS: TIMOTHY.05 - Maria Arnold [address] : 1990 AGE: 29 SEX: F [place], [place] [address] LOC: AnandRAD PHONE #: [phone] EXAM DATE: 03/22/2020 STATUS: REANNA CL FAX #: [phone] RAD NO: Page 1 Signed Report (CONTINUED) Patient Name: CAITLYN ARNOLD Unit No: [id number] EXAMS: CPT CODE: [id number] [facility] TRANSVAGINAL [address] (Continued) Right ventricular outflow tract (RVOT) seen Normal intracranial anatomy seen Umbilical cord insertion in fetus seen stomach, Renal Fossa, Bladder and Spine seen Three vesselumbilical cord noted abnormalities observed: None seen at this exam Placental location: Posteri or Placental maturity : Grade 1 There is no evidence of placenta previa. Amniotic fluid volume is normal. Uterus and adnexa: No significant abnormality is seen. Thank you for allowing us to participatein the care of this patient. Leonel Mishra M.D. Electronic Signature 03/22/2020 11:13am at 1113 Reported and signed by: Leonel Mishra MD CC: Maria Arnold MD Technologist: Sophia Sher, [facility] Probe: [id number] Trnscrbd D/ (1113) [email or web address] Orig Print D/T: S: 03/23/2020 (0805) [facility] NAME: CAITLYN ARNOLD Radiology Department PHYS: Roxanna - ClaytonMaria Friedman Arthur [address] : 1990 AGE: 29 SEX: F [place] [address] LOC: AnandRAD PHONE #: [phone] EXAM DATE: 03/22/2020 STATUS: DEP CLI FAX #: [phone] RAD NO: Page 2 Signed Report Patient Name: CAITLYN ARNOLD Unit No: [id number] EXAMS: CPT CODE: [id number] US PREG [place] TRANSVAGINAL [address] (Continued) [facility] PHYS: Roxanna Villalobos ClaytonMaria Elder Gibson [address] : 1990 AGE: 29 SEX: F [place] [address] LOC: AnandRADPHONE #: [phone] EXAM DATE: 03/22/2020 STATUS: DEP CLI FAX #: [phone] RAD NO: Page 3 Signed Report- US PREG AFTER [id number] 11:13:00 Patient Name: CAITLYN ARNOLD Unit No: [id number] EXAMS: CPT CODE: [id number] US PREG AFTER TRI [address] [facility] [address] [place], [place] [address] OBSTETRICAL ULTRASOUND REPORT ------- Pat. Name: CAITLYN ARNOLD Pat. No: [id number] Study Date: 03/22/2020 10:15am , Age: 04 1990, 29 Pregnancies: 4, Para 3 LMP: Unknown GA by US: 20w0d GA Selected: 20w1d (From Known E) MARIE: 08/08/2020 Referring MD: Clayton Sifuentes Naphthalene Still Operator: Sophia Sher RDMS CPT4: GCSEXMZ4Y Admitting MD: MARIA ARNOLD Hist/Ind: SCAN 1 ANATOMY MEASUREMENTS FETALAGE GROWTH EVALUATION Measurement GA Range Srce %for GA Ratios ----- ------- BPD 4.5 cm 19w4d (86y0a-75y3f) Hadl BPD 23% FL/BPD 0.73 HC 18.0 cm 20w2d (18w5d- 22w0d) Hadl HC 55% FL/AC 0.21 APD 4.9 cm APD HC/AC 1.16 (1.06 - 1.24) TAD 5.0 cm TAD CI 0.71 (0.70 - 0.86) AC 15.6 cm 20w3d (95z3n-82q5f) Hadl AC 57% FL 3.3 cm 20w0d (32i2f-80e4k) Hadl FL 46% HL 3.2 cm 20w5d (76y2z-21q9t) Daniel HL 59% GA for sonogram 20w0d (49j1g-59b0k) Weight Estimate: based on (BPD,HC,AC,FL) Hadlock Weight: 357 gm (305-409) Hadlock : 0lbs, 12oz Cervical Length: 4.7 cm Heart Rate: 152 bpm MATERNAL ANATOMY Ovaries LxHxW (cm) Right 2.7 x 2.0 x 2.2 Vol: 6.2cc Left 2.9 x 1.3 x 2.3 Vol: 4.5cc CLINICAL SUMMARY Type of Gestation: Sanchez Intrauterine in transverse presentation. size is appropriate for gestational age. growth: Consistent with normal growth motion and organs seen: heart motion seen body and limb movements seen Four chamber heart observed Left ventricular outflow tract (LVOT) seen [facility] NAME: CAITLYN ARNOLD Radiology Department PHYS: 05 - Maria Arnold [address] : 1990 AGE: 29 SEX: F [place] [address] LOC: [place].RAD PHONE #: [phone] EXAM DATE: 03/22/2020 STATUS: REG CLI FAX #: [phone] RAD NO: Page 1 Signed Report (CONTINUED) Patient Name: CAITLYN ARNOLD Unit No: [id number] EXAMS: CPT CODE: [id number] US PREG AFTER 1ST TRI 96838(Continued) Right ventricular outflow tract (RVOT) seen Normal intracranial anatomy seen Umbilical cord insertion in fetus seen stomach, Renal Fossa, Bladder and Spine seen Three vessel umbilicalcord noted abnormalities observed: None seen at this exam Placental location: Posterior Placental maturity : Grade 1 There is no evidence of placenta previa. Amniotic fluid volume is normal. Uterus and adnexa: No significant abnormality is seen. Thank you for allowing us to participate in the care of this patient. Leonel Mishra M.D. Electronic Signature 03/22/2020 11:13am El ectronically Signed by Leonel Mishra MD on 03/22/2020 at 1113 Reported and signed by: Leonel Mishra MD CC: Maria Arnold MD Technologist: Sophia Sher RDMS Probe: Trnscrbd D/ (1113) [email or web address] Orig Print D/T: S: 03/22/2020 (1113) [facility] NAME: CLAYTONCAITLYN Radiology Department PHYS: Maria Reis [address] : 1990 AGE: 29 SEX: F [place], [place] [address] LOC: [place].RAD PHONE #: [phone] EXAM DATE: 03/22/2020 STATUS: REG CLI FAX #: [phone] RAD NO: Page 2 Signed Report Patient Name: CAITLYN ARNOLD Unit No: [id number] EXAMS: CPT CODE: [id number] US PREG AFTER 1ST TRI 25044 (Continued) [facility] NAME: CLAYTONCAITLYN Radiology Department PHYS: Maria Reis [address] : 1990 AGE: 29 SEX: F [place] [address] LOC: LATHA PHONE #: [phone] EXAM DATE: 03/22/2020 STATUS: CHRIS SANCHEZ FAX #: [phone] RAD NO: Page 3 Signed Report- MRI ABDOMEN W/O CONT 2020-02-27 19:00:00 Patient Name: CAITLYN ARNOLD Unit No: [id number] EXAMS: CPT CODE: [id number] MRI ABDOMEN W/O CONT 46725 MRI of the abdomen February 27, 2020 COMPARISON: None. CLINICAL HISTORY: with diastases recti, evaluate for possible hernia. TECHNIQUE: Multiplanar multisequence imaging was performed of the abdomen. Discussion: Visualized portions of the liver, gallbladder, biliary tree, pancreas, spleen, bilateral adrenal glands and bilateral kidneys are within normal limits. There is a partially visualized gravid uterus with sanchez fetus. There is thinning and bulging of the anterior abdominal wall mi dline at the linea alba with increased distance between the rectus sheath musculature immediately above and below the umbilicus. Maximum distance of separation at the umbilical level is approximately 3cm. Mesentery and bowel is present within the bulge.. No dilatation of the visualized bowel is noted. No MR evidence of incarceration or strangulation. IMPRESSION: 1. Thinning and bulging of the anterior abdominal wall at the midline (at the linea alba) with maximum distance of separation between the rectus sheath muscles of approximately 3 cm at the level of the umbilicus. at 1900 Reported and signed by: Asuncion Carrasquillo MD CC: Maria Ford Technologist: RT Sarita Trnscrbd D/ (1899) Denise Orig Print D/T: S: 02/28/2020 (103) [facility] NAME: CAITLYN ARNOLD Radiology Department PHYS: TIMOTHY.05 - ClaytonMaria Friedman Arthur [address] : 1990 AGE: 29 SEX: F [place] [address] LOC: LATHA PHONE #: [phone] EXAM DATE: 02/27/2020 STATUS: DEP CLI FAX #: [phone] RAD NO: Page 1 Signed Report Notes Date/Time Note Provider Source 2020-08-05 12:36:00-00:00 [facility] OB Disch REPORT#:[id number] REPORT STATUS: Signed DATE:08/05/20 TIME: 1236 PATIENT: CAITLYN ARNOLD UNIT #: [id number] ROOM/BED: [address] : [birth year] AGE: 29 SEX: F ATTEND: Angela Arnold MD ADM AUTHOR: Maria Arnold MD * ALL edits or amendments must be made on the [employer]/computer document * Subjective Subjective Admission EGA: Weeks: 39 Days: 1 EGA at delivery (wks/days): 39 weeks (1 day) Status/day: post operative (day 3) Patient reports: Patient reports: Yes: normal lochia, pain management effective, tolerating po well, voiding well, voiding without pain, tolerating ambulatio n, flatus. No: complaints, bowel movement, nausea, vomiting, excessive blee ding. Objective General VS: Vital Signs Date Temp Pulse Resp B/P B/P Mean Pulse Ox FiO2 08/04-08/05 98.3-98.8 70-84 16- 111-135/69-83 88.0 Last Documented: Result Date Time B/P 111/74 08/05 075 Temp 98.8 08/05 075 Pulse 84 08/05 0752 Resp 20 08/05 0752 B/P Mean 88.0 08/04 1628 Pulse Ox 98 08/03 1555 Patient Weight Weight (lb): 184 Weight (oz): Weight (kg): 83.461 Physical Exam Neuro: Exam: alert, normal speech Abdomen: post gravid, soft, appropriately tender Incision site: well approxim ated edges, bertha intact (Insorb), dressing clean dry, dry, no drainage, no inflammation Uterus: involution appropriate, non-tender Fundus: firm, below the umbilicus, non-tender Lochia: normal Lower extremities: Edema: none Calf tenderness: negative Results Findings/Data: ALL LAST Laboratory Tests Test Result Date Time Chemistry Creatinine (0.5 - 1.0 mg/dL) 0.4 L 08/02 1506 Uric Acid (2.6 - 6.0 mg/dL) 2.4 L 08/02 1506 Total Bilirubin (0.2 - 1.0 mg/dL) 0.3 08/02 150 6 Direct Bilirubin (<0.2 mg/dL) 0.1 08/02 1506 Indirect Bilirubin (0.1 - 1.1 mg/dL) 0.2 08/02 1506 AST (15 - 37 units/L) 28 08/02 1506 ALT (12 - 78 units/L) 20 08/02 1506 Lactate Dehydrogenase (81 - 234 units/L) 281 H 08/02 1506 Hematology WBC (6.6 - 12.1 K/mm3) 8.7 07/30 1512 RBC (3.45 - 5.01 M/mm3) 4.08 07/30 1512 Hgb (10.7 - 13.9 g/dL) 7.2 L 08/03 0545 Hct (32.1 - 42.1 %) 25.4 L 08/03 0545 MCV (84.1 - 94.8 fL) 78 L 07/30 1512 MCH (27 - 35 pg) 21.8 L 07/30 151 MCHC (32.2 - 34.1 gm/dL) 27.9 L 07/30 1512 RDW (12.4 - 16.5 %) 18.4 H 07/30 1512 Plt Count (133 - 385 K/mm3) 375 07/30 1512 MPV (9.1 - 12.7 fl) 10.4 07/30 1512 Neut % (Auto) (56.5 - 79.4 %) 70.2 07/302 Lymph % (Auto) (14.3 - 34.3 %) 19.7 07/30 1512 [place] % (Auto) (5.1 - 10.4 %) 6.0 07/30 1512 Eos % (Auto) (0.1 - 3.0 %) 2.9 07/30 151 Baso % (Auto) (0.1 - 1.0 %) 0.7 07/30 151 Neut # (Auto) (K/mm3) 6.1 07/30 151 Lymph # (Auto) (K/mm3) 1.7 07/30 151 [place] # (Auto) (K/mm3) 0.5 07/30 151 Eos # (Auto) (K/mm3) 0.25 07/30 151 Baso # (Auto) (K/mm3) 0.1 07/30 1512 Serology Treponema pallidum Ab (NONREACTIVE) NONREACTIV E 07/30 1512 Hep Bs Antigen (NONREACTIVE) NONREACTIVE 07/30 1512 HIV 1 2 Antibody (NONREACTIVE) NONREACTIVE 07/15 SARS-CoV-2 Ag (Rapid) (NEGATIVE) NEGATIVE 07/30 150 Results: no new labs, vital signs stable Discharge Summary General Problem List/A P: 1. Excessive growth affecting i n third trimester 2. Uterine size-date discrepancy, third trimest er 3. Group B Streptococcus carrier, +RV culture, currently 4. Anemia complicating , third trimest er 5. state, gestational carrier 6. resulting from in vitro fertilizat ion in third trimester 7. Abnormal O'Brewer glucose challenge test, antepartum Date of admission: Date of admission: 08/02/20 Admission diagnosis: anemia, GBS status (carrier ), large for gestational age, suspected macrosomia, uterine size-date discrepancy, gestational carrier, IVF , abnl GCT/ml GTT Hospital course: primary admit, epidura l anesthesia, nml postop/ postpart care Procedures: epidural anesthesia, primary CS deli very Discharge condition: stable Discharge to: Home/Self Care Discharge diagnosis: full-term uncomp de livery, GBS status (carrier), anemia ( acute on chronic), large for gestational age, ma crosomia, uterine size-date discrepancy, gestational carrier, IVF , abnl GCT/nl GTT Discharge management: greater than 30 mins Additional Notes: O positive, Rubella immune Baby A: status: live born Gender: male 1 minute: 8 5 minutes: 9 Anomalies: none noted Plan: discharge today Vaginal packing at delivery: No Discharge Instructions Instructions: routine instr sheet given, instr a nd warnings rev'd, specific instr as noted Diet: Regular Activity: As Tolerated, No D riving (while taking narcotic meds), No [place] for 6 Wks, No Lifting >10lbs, No Sports/Activiti es, No Strenuous Activity, No Swimming, Nothing in vagina pre f/u, Shower Only , Walk 3 times a day Additional discharge routines: Attending Follow- Up, Wound/Dressing Care, Add. instructions Wound/dressing care: Clean wound daily, Keep wound clean and dry, OK to shower tomorrow Additional instructions: Call office if develops fevers (Temp >/= 100.4), nausea, vomiting, severe abdominal pain or heavy vaginal bleeding Contraception discussed: abstinence for 4-6 week s, s/p vasectomy Discharge meds: Continue taking these medications: PNV WITH FE FUMARATE/FA () 1 EACH TAB 1 TABLET ORAL DAILY. Start taking the following new medications: IBUPROFEN (MOTRIN) 800 MG TAB 800 MILLIGRAM ORAL EVERY 6 HOURS NEEDED. as needed for POST-OP PAIN ( SCALE 1-3) Qty = 90 Refills = 2 HYDROcodone/APAP (NORCO 5/325) 1 TAB TAB 2 TABLET ORAL EVERY 6 HOURS. Qty = 60 No Refills The following medications have been changed: Old: IRON (EZFE 200) 200 MG IRON CAP 200 MILLIGRAM ORAL DAILY. New: IRON (EZFE 200) 200 MG IRON CAP 200 MILLIGRAM ORAL TWICE DAILY. Qty = 60 Prescriptions: e-prescribe Add'l Follow-up Appointments Attending Physician: Attending Physician: Maria Arnold MD Attending physician follow up timeframe: In 2 w ks at 1249 RPT #:[id number] END OF REPORT 2020-08-04 14:09:00-00:00 [facility] ([facility]) OB Postpart Progr Note REPORT#:[id number] REPORT STATUS: Signed DATE:08/04/20 TIME: 1409 PATIENT: CAITLYN ARNOLD UNIT #: [id number] ROOM/BED: [address] : 91 AGE: 29 SEX: F ATTEND: Angela Arnold MD ADM AUTHOR: Maria Arnold MD * ALL edits or amendments must be made on the el [employer]/computer document * Subjective Subjective Admission EGA: Weeks: 39 Days: 1 EGA at delivery (wks/days): 39 weeks (1 day) Status/day: post operative (day 2) Patient reports: Patient reports: Yes: normal lochia, pain management effective, tolerating po well, voiding well, voiding without pain, tolerating ambulatio n, flatus. No: complaints, nausea, vomiting, excessive bleeding. Objective Nursing Documentation Review Nursing data: The data set between the solid lines has been im ported from nursing documentation. Any exceptions have been noted be low under Provider comments. Feeding preference: Provider comments on imported nursing data: [] General VS: Vital Signs Date Temp Pulse Resp B/P B/P Mean Pulse Ox FiO2 08/03-08/04 98.0-99.2 67-90 - 116-138/64-77 82.0-86.0 98 Last Documented: Result Date Time B/P Mean 86.0 08/04 1020 B/P 120/70 08/04 1020 Temp 99.2 08/04 1020 Pulse 90 08/04 1020 Resp 16 08/04 1020 Pulse Ox 98 08/03 1555 Patient Weight Weight (lb): 184 Weight (oz): Weight (kg): 83.461 Physical Exam Neuro: Exam: alert, normal speech Abdomen: soft, appropriately tender Incision site: well approxim ated edges, bertha intact (Insorb), dressing clean dry, dry, no drainage, no inflammation Uterus: firm, involution appropriate Fundus: firm, below the umbilicus, non-tender Lochia: normal Lower extremities: Edema: none Calf tenderness: negative Result Results: no new labs, vital signs stable Diagnosis, Assessment Plan Diagnosis, Assessment Plan Problem List/A P: 1. Excessive growth affecting i n third trimester 2. Uterine size-date discrepancy, third trimest er 3. Group B Streptococcus carrier, +RV culture, currently 4. Anemia complicating , third trimest er 5. state, gestational carrier 6. resulting from in vitro fertilizat ion in third trimester 7. Abnormal O'Brewer glucose challenge test, antepartum Assessment: nml p rogress, acute on chronic blood loss anemia, O pos, RI Plan: routine car e, discharge tomorrow, OOB/ambulation, po analgesia prn, FeSO4 supplementation bid Plan discussed with: patient, spouse/partner at 1410 RPT #:[id number] END OF REPORT 2020-08-04 08:59:00-00:00 [id number] [facility] [address] [id number] PATIENT NAME: CAITLYN ARNOLD ADMIT DATE: 0 ACCOUNT NO: [id number] ROOM NO: .4630 AGE: 29 SEX: F ADMITTING PHYSICIAN: Maria Arnold MD ATTENDING PHYSICIAN: Maria Arnold MD OPERATION DATE: 08/02/2020 PREOPERATIVE DIAGNOSES: 1. Intrauterine at 39 weeks, 1 day 2. Large for gestational age 3. Suspected macrosomia - estimated weight 4451 grams (greater than the 90th percentile) 4. Uterine size-date discrepancy 5. Maternal anemia 6. Group B Streptococcus positive POSTOPERATIVE DIAGNOSES: 1. Intrauterine at 39 weeks, 1 day 2. Large for gestational age 3. macrosomia 4. Uterine size-date discrepancy 5. Maternal anemia 6. Group B Streptococcus positive PROCEDURE: 1. Primary low segment transverse secti on 2. Left paratubal cystectomy SURGEON: Maria Arnold MD INSOLE PRESSER SURGEON: SAIGE Membreno ANESTHESIA: Combined spinal-epidural COMPLICATIONS: None ESTIMATED BLOOD LOSS: 800 mL INTRAVENOUS FLUIDS: 2700 mL crystalloid URINE OUTPUT: Weeks catheter to gravity, drainin g 50 mL of clear urine at the end of the procedure. FINDINGS: A viable male delivered in [facility] alic presentation at 1325 hours. Amniotic fluid is clear. No cord complica tions. Apgars 8 at 1 minute and 9 at 5 minutes. Weight 10 pounds, 14.606 oun jennifer (4950 grams). NICU team called to delivery secondary to tachypn ea. Normal uterus, fallopian PATIENT NAME: CAITLYN ARNOLD 9819 tubes, and ovaries bilaterally. Three pedunculat ed paratubal cysts were identified on the left fallopian tube, which wer e excised. PROCEDURE IN DETAIL: The pat ient was taken to the operating room with IV fluids running. She was placed in a sitting position, where a combined spinal-epidural was successfully placed. She was then reposition ed supine and frog-legged, at which time a vaginal prep was performed and a Fo zak catheter was sterilely placed in order to provide a means of bladder de flation. Her legs were straightened and systemic compression devices we re applied to her lower extremities. She was then placed in left lateral displacement, where her abdomen was prepped and draped in the usual ster ile fashion. A skin test was performed with adequate analgesia noted. A Pfannenstiel skin incision was then created approximately 2 cm above the sym physis pubis and this was carried down to the underlying layer of fascia using the Bovi e. Any perforating vessels encountered were cauterized. Once the fa scia was identified, it was incised in a transverse fashion with th e incision extended bilaterally using Perkins scissors. Theron clamps were used to grasp the superior as pect of the fascial incision, which was elevated and tente d with the underlying rectus muscles dissected off. The rectus muscles were in the midline and the underlying peritoneum was identified and entered bluntly. The peritone al incision was extended superiorly and inferiorly ta lindy care to avoid the bladder. A bladder blade was placed into the abdomen and the vesicouterine peritoneum was identified, grasped with smooth pickups, and entered sharply using M etzenbaum scissors. This incision was extended transversely and t he bladder flap was created digitally. The bladder blade was then repositioned retracti ng the bladder and the lower uterine segment was incised in a transverse fash ion. Entry into the uterine cavity demonstrated clear amniotic fluid. The ut erine incision was extended transversely using bandage scissors. A hand was placed into the uterus, at which time the infant's head was grasped. An att empt was made for delivery, which was unsuccessful secondary to the large si ze of the vertex. The muscles were then transected bilaterally, creati ng more room. The 's head was then delivered easily. The mouth and na res were aspirated upon delivery of the head. No nuchal cords we re identified. The 's shoulders, torso, and lower extremities were delivered with out incident. The cord was doubly clamped and cut and the was handed to the awaiting staff with a spontaneous cry. Cord blood was collected and se nt for routine analysis. The placenta was manually extracted, grossly intact. The uterus was exteriorized, wrapped in a moist laparotomy pad, and the inter ior was wiped clean of all clots and debris. The uterine incision was repai red using 0-Monocryl in a running, interlocked fashion. A second imbricati ng layer was placed using the same suture with excellent hemostasis noted. The fallopian tubes and ovaries were inspected and appeared healthy bilaterally. Three peduculated paratubal cysts were identified from the left fallopian tu bes, each hanging from its own stalk. All three stalks were grasped using a hemostat and a free tie of 2- 0 Vicryl was placed beneath the hemostat. The st alks were incised above the hemostat and the free end was cauterized. The he mostat was released with good hemostasis noted. At that point, attention was t urned to the rectouterine pouch, which was copiously irrigated with remova l of any retained amniotic fluid or blood. The uterus and adnexa were subse quently returned to the abdomen in their anatomic positions. The paracol ic gutters were cleansed bilaterally using moist laparotomy pads. During that time, the left adnexa was observed with good hemostasis observed at the op erative site. The vesicouterine pouch was wiped clean of any retai do amniotic fluid or blood. Repeat exploration of the uterine incisi on demonstrated no further evidence of bleeding, hence closure was begun. The parietal peritoneum was reapproximated PATIENT NAME: CAITLYN ARNOLD 9819 using 3-0 Vicryl in a running fashion. Next, the transected rectus muscles were reapproximated on each side using 3 mattress stitches of 2-0 Chromic. The rectus muscles were then reapproximated in the m idline using 2-0 Chromic in a running fashion. The fascia was closed u sing 0-PDS beginning from the left and right lateral aspects and ending medially. The s ubcutaneous layers were copiously irrigated and any identified bleeders were made hemostatic with the Bovie. This layer was subsequently reapproximate d using 2-0 Vicryl in a running fashion followed by skin closure in a arthur bcuticular fashion using Insorb bertha. The wound was washed and dressed with Dermabond placed along the entire length of the incision. The patient t olerated the procedure well. All intraoperative counts were confirmed as being correct. She was transferred to the recovery room in satisfactory condition. Dictated By: Maria Arnold MD WT: OP:FJOSE/TIMOTHY. Conf#: [id number]/DID#: [id number] Authenticated and Edited by Maria Arnold MD O n 09/17/20 12:28:06 AM at 0029 PATIENT NAME: CAITLYN ARNOLD 9819 2020-08-03 15:33:00-00:00 [facility] ([facility]) OB Postpart Progr Note REPORT#:[id number] REPORT STATUS: Signed DATE:08/03/20 TIME: 1533 PATIENT: CAITLYN ARNOLD UNIT #: [id number] ROOM/BED: [address] : 91 AGE: 29 SEX: F ATTEND: Angela Arnold MD ADM AUTHOR: Maria Arnold MD * ALL edits or amendments must be made on the el [employer]/computer document * Subjective Subjective Admission EGA: Weeks: 39 Days: 1 EGA at delivery (wks/days): 39 weeks (1 day) Status/day: post operative (day 1) Patient reports: Patient reports: Yes: normal lochia, pain management effective, tolerating po well, voiding well, voiding without pain. No: complaints, flat us, bowel movement, nausea, vomiting, excessive bleeding. Objective Nursing Documentation Review Nursing data: The data set between the solid lines has been im ported from nursing documentation. Any exceptions have been noted be low under Provider comments. Feeding preference: Provider comments on imported nursing data: [] General VS: Vital Signs Date Temp Pulse Resp B/P B/P Mean Pulse Ox FiO2 08/02-08/03 97.4-99.0 65-91 16- 112-144/62-86 84.0-110.0 95-100 Last Documented: Result Date Time B/P Mean 84.0 08/03 1212 Pulse Ox 99 08/03 1212 B/P 114/69 08/03 1212 Temp 98.8 08/03 1212 Pulse 75 08/03 1212 Resp 17 08/03 1212 Patient Weight Weight (lb): 184 Weight (oz): Weight (kg): 83.461 Physical Exam Neuro: Exam: alert, normal speech Abdomen: soft, appropriately tender Incision site: well approxim ated edges, bertha intact (Insorb), dressing clean dry, dry, no drainage, no inflammation Uterus: firm, involution appropriate Fundus: firm, below the umbilicus, non-tender Lochia: normal Lower extremities: Edema: none Calf tenderness: negative Result Findings/data: Laboratory Tests: 08/03 0545 Hematology Hgb (10.7 - 13.9 g/dL) 7.2 L Hct (32.1 - 42.1 %) 25.4 L Results: labs reviewed, vital signs stable Diagnosis, Assessment Plan Diagnosis, Assessment Plan Problem List/A P: 1. Excessive growth affecting i n third trimester 2. Uterine size-date discrepancy, third trimest er 3. Group B Streptococcus carrier, +RV culture, currently 4. Anemia complicating , third trimest er 5. state, gestational carrier 6. resulting from in vitro fertilizat ion in third trimester 7. Abnormal O'Brewer glucose challenge test, antepartum Assessment: nml p rogress, acute on chronic blood loss anemia, O pos, RI Plan: routine care, OOB/ambulation, p o analgesia prn, FeSO4 supplementation bid Plan discussed with: patient, spouse/partner at 1537 RPT #:[id number] END OF REPORT 2020-08-02 15:11:00-00:00 [facility] ([facility]) OB Delivery Note REPORT#:[id number] REPORT STATUS: Signed DATE:08/02/20 TIME: 1511 PATIENT: CAITLYN ARNOLD UNIT #: [id number] [facility]ED: [facility] : [facility] AGE: 29 SEX: F ATTEND: Angela Arnold MD ADM AUTHOR: Maria Arnold MD * ALL edits or amendments must be made on the el [employer]/computer document * OB Delivery Nursing Documentation Review Nursing data: The data set between the solid lines has been im ported from nursing documentation. Any exceptions have been noted be low under Provider comments. _ ROM date: 08/02/20 ROM time: 1324 Membranes rupture method: AROM Amniotic fluid color: Clear Amniotic fluid amount: Steroids prior to arrival: Antibiotic prophylaxis given: Yes evaluation at delivery: Delivery date infant A: 08/02/20 Delivery time i nfant A: 1325 Birthweight (gm) A: 4950 Weight (lb) infant A: Weight (oz) infant A: Gender A: Male 1 minute infant A: 5 minutes A: 10 minutes A: Cord pH obtained A: Vacuum time infant A: Vacuum # pulls infant A: Vacuum # popoffs A: QBL at delivery: __ Provider comments on imported nursing data: [] Pre-delivery GBS status: GBS status: positive Prophylaxis administered: ancef Meds prior to delivery: ancef [place] evaluation at delivery: NRP certified NAVA lane (called for tachypnea) Admission EGA: Weeks: 39 Days: 1 EGA at delivery (wks/days): 39 weeks (1 day) Steroids Prior to Delivery Steroids prior to delivery: N/A Baby A Information Baby A information Delivery date: 08/02/20 Delivery time: 1325 status: live born Wt of baby (grams): 4950 Wt of baby (lbs/oz): 10 lb, 14.61 oz Gender: male 1 minute: 8 5 minutes: 9 Presentation: vertex Anomalies: none noted ABG details Baby A Cord blood gases: not collected Nuchal cord Baby A Nuchal cord: no Anomalies: none noted Delivery section indication: lga/excessive growth , suspected macrosomia Priority: scheduled Antibiotic prior to incision: 1 dose )(SCDs applied activated: Yes Uterine incision: low transverse Consent: indication discussed, questions answer ed, pt consent to op delivery Mother's condition: mother stable Infant's condition: infant stable in room Op/Inv Proc Note - Brief )(Start date: 08/02/2020 )( Procedure(s) performed: prim low transverse c /s, left paratubal cystectomy )( Primary Surgeon: Jin Arnold MD )( Seconds Handler(s): SAIGE Christie )( Pre-procedure diagnosis: 1. IUP @ 39w1d 2. Large for Gestational Age 3. Suspected Macrosomia - EFW 4451 gm (>90 %) 4. Uterine Size-date Discrepancy 5. Maternal Anemia 6. GBS (+) )( Post-procedure diagnosis: same )( Technique/Procedure: see dictated operative report Anesthesia: combined spinal/epidural )( Estimated blood loss (ml): 800 )( Specimen removed/altered: Left paratubal cyst s x3 )( Complications: none Drain(s): Weeks Fluids: 2700 ml Urine output: 50 ml )( Finding(s): Viable male @ 1325, vertex, clear AF, no cord complications. Apgars 8/9. Weight 10 lb, 14.61 oz (4950 gm). NICU called s econdary to tachypnea. Normal uterus, fallopian tubes, and ovaries B/L. Left p aratubal cysts x3 all on pedunculated stalks. Condition: stable Blood Loss/Details Blood loss at delivery: <1000 ml at 1604 RPT #:[id number] END OF REPORT 2020-08-02 15:11:00-00:00 [facility]) OB Delivery Note REPORT#:[id number] REPORT STATUS: Signed DATE:08/02/20 TIME: 1511 PATIENT: CAITLYN ARNOLD UNIT #: [id number] [address] AGE: 29 SEX: F ATTEND: Angela Arnold MD ADM AUTHOR: Maria Arnold MD * ALL edits or amendments must be made on the el [employer]/computer document * See Addendum OB Delivery Nursing Documentation Review Nursing data: The data set between the solid lines has been im ported from nursing documentation. Any exceptions have been noted be low under Provider comments. _ ROM date: 08/02/20 ROM time: 1324 Membranes rupture method: AROM Amniotic fluid color: Clear Amniotic fluid amount: Steroids prior to arrival: Antibiotic prophylaxis given: Yes evaluation at delivery: Delivery date A: 08/02/20 Delivery time i nfant A: 1325 Birthweight (gm) A: 4950 Weight (lb) A: Weight (oz) A: Gender A: Male 1 minute A: 5 minutes A: 10 minutes A: Cord pH obtained A: Vacuum time A: Vacuum # pulls infant A: Vacuum # popoffs A: QBL at delivery: __ Provider comments on imported nursing data: [] Pre-delivery GBS status: GBS status: positive Prophylaxis administered: ancef Meds prior to delivery: ancef [place] evaluation at delivery: NRP certified NAVA lane (called for tachypnea) Admission EGA: Weeks: 39 Days: 1 EGA at delivery (wks/days): 39 weeks (1 day) Steroids Prior to Delivery Steroids prior to delivery: N/A Baby A Information Baby A information Delivery date: 08/02/20 Delivery time: 1325 status: live born Wt of baby (grams): 4950 Wt of baby (lbs/oz): 10 lb, 14.61 oz Gender: male 1 minute: 8 5 minutes: 9 Presentation: vertex Anomalies: none noted ABG details Baby A Cord blood gases: not collected Nuchal cord Baby A Nuchal cord: no Anomalies: none noted Delivery section indication: lga/excessive growth , suspected macrosomia Priority: scheduled Antibiotic prior to incision: 1 dose )(SCDs applied activated: Yes Uterine incision: low transverse Consent: indication discussed, questions answer ed, pt consent to op delivery Mother's condition: mother stable Infant's condition: stable in room Op/Inv Proc Note - Brief )(Start date: 08/02/2020 )( Procedure(s) performed: prim low transverse c /s, left paratubal cystectomy )( Primary Surgeon: Jin Arnold MD )( Seconds Handler(s): SAIGE Christie )( Pre-procedure diagnosis: 1. IUP @ 39w1d 2. Large for Gestational Age 3. Suspected Macrosomia - EFW 4451 gm (>90 %) 4. Uterine Size-date Discrepancy 5. Maternal Anemia 6. GBS (+) )( Post-procedure diagnosis: same )( Technique/Procedure: see dictated operative report Anesthesia: combined spinal/epidural )( Estimated blood loss (ml): 800 )( Specimen removed/altered: Left paratubal cyst s x3 )( Complications: none Drain(s): Weeks Fluids: 2700 ml Urine output: 50 ml )( Finding(s): Viable male @ 1325, vertex, clear AF, no cord complications. Apgars 8/9. Weight 10 lb, 14.61 oz (4950 gm). NICU called s econdary to tachypnea. Normal uterus, fallopian tubes, and ovaries B/L. Left p aratubal cysts x3 all on pedunculated stalks. Condition: stable Blood Loss/Details Blood loss at delivery: <1000 ml at 1604 Addendum 1: 08/02/20 1604 by Maria Arnold MD Post procedure diagnosis: 7. Left Paratubal Cysts x3 at 1605 RPT #:[id number] END OF REPORT 2020-08-02 12:29:00-00:00 [facility] OB Admission / H P REPORT#:[id number] REPORT STATUS: Signed DATE:08/02/20 TIME: 1229 PATIENT: CAITLYN ARNOLD UNIT #: [id number] ROOM/BED: [address] : [birth year] AGE: 29 SEX: F ATTEND: Angela Arnold MD ADM AUTHOR: Maria Arnold MD * ALL edits or amendments must be made on the el [employer]/computer document * OB History Nursing Documentation Review Nursing data: The data set between the solid lines has been im ported from nursing documentation. Any exceptions have been noted be low under Provider comments. Current data Steroids prior to arrival: ROM date: ROM time: EDC date: 08/08/20 Prior history : 5 Para: 3 Term: : Abortions spontaneous: Abortions induced: Living children: Ectopic: Stillbirths: Live births: deaths: Number of previous C/S: Reported maternal labs/data Blood type: Rh type: Rubella: Hepatitis B: HIV exposure test: VDRL: Group B beta strep: Rho(D) immune globulin this preg: Monitor mode - UA: Feeding preference: Provider comments on imported nursing data: [] Chief complaint: scheduled HPI: Patient presents to undergo elective primary jennifer arean section secondary to excessive growth (EFW 4451 @ 38 wks, >90%) and uterine size-date discrepancy. She is a gestational carrier who is s/p IVF via [facility]. She reports o ccasional, irregular CTX and active FM. She denies VB or LOF. The intended parents have arrived from [place] and ar e present for the delivery. history: : 5 Term: 3 : 0 Abortus: 1 Living children: 3 Complications (prev preg): none Previous : none Comments: G1 - 06/06/2012 - 40.1 wks - - Female (Lylah) - 7 lb, [address] - [place], [place] - no complications G2 - 09/2013 - 4-6 wks - [facility] - no D C needed; no complications G3 - 08/23/2014 - 38+ wks - - Male (Michelet) - 7 lb, 12 oz - [place], [place] - no complications G4 - 07/27/2017 - 39 wks - - Male (Sterling) - 8 lb, 12 oz - [facility] - IOL secondary to suspected macros omia; no complications Current : Best EDC: 08/08/20 Admission EGA (weeks) 39 Admission EGA (days) 1 EDC based on: LMP, FET date Steroids prior to delivery: N/A Conditions of : anemia (chronic ), GBS status (carrier), LGA (EFW 4451 gm @ 38 wks, > 90%), uterine size-date discrepan cy, gestational carrier, IVF , abnl GCT/nl GTT Labs: Blood type: O Rh: positive Rubella: immune Hepatitis B: negative HIV: negative STD: negative Syphilis: currently negative GBS: positive Date Rhogam administered: N/A Procedures: ultrasound, non stress test Genetic testing: neural tube defect (negative), sickle cell disease (negative), thalassemia (negative) Past medical history: denies PMH Past surgical history: 2014 - / breast reducti on Social history: unemployed (student), ma rried, no alcohol use, no tobacco use, no drug use Family history Family history was reviewed; no changes noted. Medications: Home Medications: PNV WITH FE FUMARATE/FA () 1 TAB PO HAMLET Y IRON (EZFE 200) 200 MG PO DAILY Allergies Coded Allergies: No Known Allergies (07/15/20) Review of Systems Constitutional: Denies: chills, fever. Skin: Denies: rash. Respiratory: Denies: hemoptysis, non productive cough, produc tive cough (sputum), SOB, wheezing. Cardiovascular: Denies: chest pain, CHNAG (dyspnea on exertion), p alpitations. GI: Denies: abdominal pain, constipation, diarrhea, nausea, vomiting. : Reports: , previous pregnancies. Denies: dysuria, hematuria, urgency, vaginal bleeding. Objective General VS: Last Documented: Result Date Time B/P Mean 87.0 08/02 1100 B/P 118/67 08/02 1100 Pulse 70 08/02 1100 Resp 19 08/02 1058 Vital Signs Date Temp Pulse Resp B/P B/P Mean Pulse Ox FiO2 08/02 70 19 118/67 87.0 Patient Weight Weight (lb): 184 Weight (oz): Weight (kg): 83.710559 Physical Exam HEENT: normocephalic w/o injury, no scleral icte roshni Breasts: deferred Neuro: Exam: alert, normal speech Abdomen: gravid, soft, no abnormal tenderness Uterine activity: Monitor: toco Frequency (description): irregular (q 2-7 min) Pelvic exam: Pelvis clinically adequate: yes Vulvar lesions: none, no evidence herpetic les, no evidence of other STD Vagina: normal, non-septated Uterus size in weeks: 48 Exam: non-tender, increased size for gest age Cervical/ exam: Dilatation (cm): 1 Effacement (%): 50 Est wt (gms): 4500 Suspected macrosomia: Yes Suspected > 5000 grams: No station: - 4 presentation: cephalic Marie Score Marie Score Response Value Dilation: 0 cm (0) 0 Effacement: 0-30% (0) 0 Station: -3 (0) 0 Position: posterior (0) 0 Consistency: soft (2) 2 Total 2 Membranes: Membranes: Intact Lower extremities: Edema: none Calf tenderness: negative Baby A: Baby A baseline: 120s-130s Baby A variability: moderate 6-25 bpm Baby A accelerations: 15 X 15 Baby A decelerations: variable (mild x2) Result Findings/Data: Laboratory Tests Test Result Date Time Hematology WBC (6.6 - 12.1 K/mm3) 8.7 07/30 1512 RBC (3.45 - 5.01 M/mm3) 4.08 07/30 1512 Hgb (10.7 - 13.9 g/dL) 8.9 L 07/30 151 Hct (32.1 - 42.1 %) 31.9 L 07/30 1512 MCV (84.1 - 94.8 fL) 78 L 07/30 1512 MCH (27 - 35 pg) 21.8 L 07/30 1512 MCHC (32.2 - 34.1 gm/dL) 27.9 L 07/30 1512 RDW (12.4 - 16.5 %) 18.4 H 07/30 1512 Plt Count (133 - 385 K/mm3) 375 07/30 1512 MPV (9.1 - 12.7 fl) 10.4 07/30 1512 Neut % (Auto) (56.5 - 79.4 %) 70.2 07/30 1512 Lymph % (Auto) (14.3 - 34.3 %) 19.7 07/302 [place] % (Auto) (5.1 - 10.4 %) 6.0 07/30 1512 Eos % (Auto) (0.1 - 3.0 %) 2.9 07/30 1512 Baso % (Auto) (0.1 - 1.0 %) 0.7 07/30 1512 Neut # (Auto) (K/mm3) 6.1 11/16 1512 Lymph # (Auto) (K/mm3) 1.7 07/30 1512 [place] # (Auto) (K/mm3) 0.5 07/30 151 Eos # (Auto) (K/mm3) 0.25 07/30 151 Baso # (Auto) (K/mm3) 0.1 07/30 151 Serology Treponema pallidum Ab (NONREACTIVE) NONREACTIVE 07/30 151 Hep Bs Antigen (NONREACTIVE) NONREACTIVE 07/30 151 HIV 1 2 Antibody (NONREACTIVE) NONREACTIVE 07/15 6 1512 SARS-CoV-2 Ag (Rapid) (NEGATIVE) NEGATIVE 07/30 1508 Results: labs reviewed, vital signs stable Diagnosis, Assessment Plan Diagnosis, Assessment Plan Problem List/A P: 1. Excessive growth affecting i n third trimester 2. Uterine size-date discrepancy, third trimest er 3. Group B Streptococcus carrier, +RV culture, currently 4. Anemia complicating , third trimest er 5. state, gestational carrier 6. resulting from in vitro fertilizat ion in third trimester 7. Abnormal O'Brewer glucose challenge test, antepartum Assessment/Impression: reass uring status, membranes intact, reactive NST, no evidence of labor Plan: admit to inpatient, scheduled C-se ction, IVF, DVT prophylaxis, ptaient's will be in attendance for the delivery t o provide spousal support as will the intended parents for the of their child, the above has been coordinated with the OR Reason-sched C section: suspected macrosomia Plan discussed with: patient, spouse/partner, nu rse at 1547 RPT #:[id number] END OF REPORT 2020-07-15 15:49:00-00:00 [facility] ([facility]) EMERGENCY PROVIDER REPORT REPORT#:[id number] REPORT STATUS: Signed DATE:07/15/20 TIME: 1549 PATIENT: CAITLYN ARNOLD UNIT #: [id number] ROOM/BED: AGE: 29 SEX: F PCP PHYS: No Primary or Family Ph ysician SERVICE AUTHOR: Yaima Mcmahon MD * ALL edits or amendments must be made on the el [employer]/computer document * AURELIA History Chief complaint: uterine contractions HPI: Called by RN to see patient. pt arrived 2 hours ago 29y/o EDC: 08/08/2020 @ 36 weeks 4days p resents to AURELIA with ctx q 7- 9min. No LOF/VB/+FM. This is a surrogate pregnan cy. denies any COVID sx. RN spoke with Dr. Arnold and wanted pt to be monito red and rechecked. Past medical history: denies PMH Past surgical history: breast reduction Social history: no alcohol use, no tobacco use, no drug use Family history Relation not specified for: Family History: Unremarkable Medications: Home Medications: Medication Dose/Rte/Freq Days Qty Entered Last Max Daily Dose Reviewed PNV WITH FE 1 TAB PO DAILY 07/15/20 FUMARATE/FA 1505 () Strength: 1 EACH TAB IRON (EZFE 200) 200 MG PO DAILY 07/15/20 Strength: 200 MG IRON CAP 1506 CETIRIZINE 10 MG PO DAILY 07/15/20 Strength: 10 MG TAB 1506 Allergies Coded Allergies: No Known Allergies (07/15/20) Review of Systems Constitutional: Denies: chills, fatigue, fev er, generalized weakness, lethargy, malaise, recent wt loss, other. Skin: Denies: rash, swelling. Allergy/Immun: Denies: rhinorrhea, sneezing. Eyes: Denies: visual loss/blurred. ENT: Denies: nasal congestion, sinus problem, sore th roat, throat pain. Respiratory: Denies: CHANG (dyspnea on exertion), hemoptysis, n on productive cough, parox nocturnal dyspnea, pleurisy, pleuritic pain, pneumonia, productive cough (sputum ), SOB, wheezing, other. Cardiovascular: Denies: chest pain, CHANG (dyspnea on exer tion), edema, orthopnea, palpitations, parox nocturnal dyspnea, other. GI: Denies: abdominal pain, anorexia, constipation, diarrhea, dysphagia, GERD, hematemesis, hematochezia, h iatal hernia, melena, nausea, rectal pain, vomiting, other. : Reports: . Denies: d ysuria, flank pain, frequency, hematuria, nocturia, pelvic pain, urgency, urinary retention, vaginal bleeding, vaginal discharge, other. Musculoskeletal: Denies: extremity pain, extremity swelling, myal gias. Neuro: Denies: bladder dysfunction, bowel dysfunction, change in LOC, confusion, dizziness, focal weakness, gait problem, headach e, lightheaded, numbness, seizure, slurred speech, spinning sensation, syn cope, unable to speak, vision change, weakness, other. Objective General VS: Patient Weight Weight (lb): 181 Weight (oz): Weight (kg): 82.1 Physical Exam HEENT: normocephalic w/o injury Cardiac: regular rate and rhythm Lungs: clear to auscultation Breasts: deferred Neuro: Exam: alert, oriented x3, normal speech Abdomen: gravid, soft, no abnormal tenderness, n ormoactive bowel sounds Uterine activity: Monitor: toco Frequency (description): occasional Cervical/ exam: Dilatation (cm): 1 (exam by rn repeat unchanged ) Effacement (%): 50 station: - 3 FHR evaluation: Baseline: 135 bpm Variability: moderate 6-25 bpm Accelerations: 15 X 15 Decelerations: none FHR category: reactive Membranes: Membranes: Intact Lower extremities: Edema: none Calf tenderness: negative Diagnosis, Assessment Plan Diagnosis, Assessment Plan Free Text A P: IUP @ 36 weeks 4 days GA not in PTL. AVSS FHR re active Plan: discharge home PTL warnings given f/u primary ob at 1555 RPT #:[id number] END OF REPORT
--- NOTE | 2023-03-27 16:27 | ER ---
Nurse's Notes [facility] Name: Ana Maria Arnold Age: 32 yrs Sex: Female : 1990 Arrival Date: 03/27/2023 Time: 15:01 Bed 16 Private MD: Diagnosis: Abnormal uterine and vaginal bleeding, unspecified Presentation: 03/27 15:05 Chief complaint: Patient states: "I had a hysterectomy March 18 and today I started aa5 vaginal bleeding". 15:05 Coronavirus screen: At this time, the client does not indicate any symptoms associated aa5 with coronavirus-19. Ebola Screen: Patient denies travel to an Ebola-affected area in the 21 days before illness onset. Initial Sepsis Screen: Does the patient meet any 2 criteria? No. Patient's initial sepsis screen is negative. Does the patient have a suspected source of infection? No. Patient's initial sepsis screen is negative. Risk Assessment: Do you want to hurt yourself or someone else? Patient reports no desire to harm self or others. Onset of symptoms was March 27, 2023. 15:05 Method Of Arrival: Ambulatory aa5 15:05 Acuity: YASMINE 3 aa5 Triage Assessment: 15:10 General: Appears in no apparent distress. uncomfortable, Behavior is calm, cooperative, eh3 appropriate for age. Pain: Denies pain. CLAIMS ACCOUNT SPECIALIST: 16:30 LMP N/A - Hysterectomy eh3 Historical: - Allergies: 15:05 No Known Allergies; aa5 - PMHx: 15:05 Anemia; aa5 - PSHx: 15:05 hysterectomy 2022; Breast Reduction; aa5 - Immunization history:: Adult Immunizations unknown. - Social history:: Smoking status: Patient denies any tobacco usage or history of. Screenin:10 [facility] ED Fall Risk Assessment (Adult) Score/Fall Risk Level 0 - 2 = Low Risk. Abuse eh3 screen: Denies threats or abuse. Denies injuries from another. Nutritional screening: No deficits noted. Tuberculosis screening: No symptoms or risk factors identified. Assessment: 15:10 General: Appears in no apparent distress. uncomfortable, Behavior is calm, cooperative, eh3 appropriate for age. Pain: Denies pain. Neuro: Level of Consciousness is awake, alert, obeys commands, Oriented to person, place, time, situation. Cardiovascular: Capillary refill < 3 seconds Patient's skin is warm and dry. Respiratory: Airway is patent Respiratory effort is even, unlabored, Respiratory pattern is regular, symmetrical. GI: Abdomen is round non-distended. : Reports vaginal bleeding that is. Derm: Skin is intact, is healthy with good turgor. Musculoskeletal: Circulation, motion, and sensation intact. Range of motion: intact in all extremities. 16:00 Reassessment: Patient appears in no apparent distress at this time. Patient and/or 3 family updated on plan of care and expected duration. Pain level reassessed. Patient is alert, oriented x 3, equal unlabored respirations, skin warm/dry/pink. Vital Signs: 15:05 BP 134 / 79; Pulse 74; Resp 18 S; Temp 97.3(TE); Pulse Ox 100% on R/A; Weight 74.84 kg aa5 (R); Height 5 ft. 1 in. (R); 16:00 BP 133 / 83; Pulse 76; Resp 18; Pulse Ox 99% on R/A; eh3 15:05 Body Mass Index 31.18 (74.84 kg, 154.94 cm) aa5 ED Course: 15:03 Patient arrived in ED. ts1 15:05 Arm band placed on. aa5 15:07 Triage completed. aa5 15:10 Patient has correct armband on for positive identification. Bed in low position. Call [facility] light in reach. Side rails up X2. Provided Education on: N/A. Pulse ox on. NIBP on. Door closed. Noise minimized. Lights dimmed. Warm blanket given. 15:12 Halle Dougherty FNP-C is [facility]. kb 15:12 Kishor Mancia MD is Attending Physician. kb 15:15 Manda Sesay, CHASIDY is Primary Nurse. 3 16:30 Assist provider with pelvic exam: Set up pelvic tray. Performed by Halle Dougherty [facility] SHAINA Patient tolerated well. Patient did not have IV access during this emergency room visit. Administered Medications: No medications were administered Medication: 16:30 VIS not applicable for this client. [facility] Outcome: 16:26 Discharge ordered by . kb 16:31 Discharged to home ambulatory. 3 16:31 Condition: stable 16:31 Discharge instructions given to patient, Instructed on discharge instructions, follow up and referral plans. Demonstrated understanding of instructions, follow-up care. 17:25 Patient left the ED. eh3 Signatures: Halle Dougherty, [facility]-C DRAIN TILE PRESS OPERATOR-CkVioletta Shen, RN RN aa5 Manda Sesay RN RN eh3 Darleen Santos PAS PAS ts1
--- NOTE | 2023-03-27 16:27 | EDPHYS ---
Physician Documentation [facility] Name: Ana Maria Arnold Age: 32 yrs Sex: Female : 1990 Arrival Date: 03/27/2023 Time: 15:01 Bed 16 Private MD: KAREL Physician Kishor Mancia HPI: 03/27 16:35 This 32 yrs old Female presents to ER via Ambulatory with complaints of Post kb Surgical Bleeding. 16:35 The patient presents with vaginal bleeding that is light. Onset: The symptoms/episode kb began/occurred this morning. Modifying factors: The symptoms are alleviated by nothing, the symptoms are aggravated by nothing. Associated signs and symptoms: Pertinent positives: vaginal bleeding. Severity of symptoms: At their worst the symptoms were mild, in the emergency department the symptoms are unchanged. The patient has not experienced similar symptoms in the past. The patient has been recently seen by a physician:. Pt reports laparoscopic hysterectomy on 03/18/23. States she started having bleeding today. Reports cramping. MARKET REPORTER: 16:30 LMP N/A - Hysterectomy eh3 Historical: - Allergies: 15:05 No Known Allergies; aa5 - PMHx: 15:05 Anemia; aa5 - PSHx: 15:05 hysterectomy 2022; Breast Reduction; aa5 - Immunization history:: Adult Immunizations unknown. - Social history:: Smoking status: Patient denies any tobacco usage or history of. ROS: 16:32 Constitutional: Negative for fever, chills, and weight loss. kb 16:32 : Positive for vaginal bleeding. 16:32 All other systems are negative. Exam: 16:32 Constitutional: This is a well developed, well nourished patient who is awake, alert, kb and in no acute distress. Head/Face: Normocephalic, atraumatic. ENT: Moist Mucous membranes Cardiovascular: Regular rate and rhythm with a normal S1 and S2. No gallops, murmurs, or rubs. No pulse deficits. Respiratory: Respirations even and unlabored. No increased work of breathing. Talking in full sentences Abdomen/GI: Soft, non-tender. No distention Skin: Warm, dry with normal turgor. Normal color. MS/ Extremity: Pulses equal, no cyanosis. Neurovascular intact. Full, normal range of motion. Neuro: Awake and alert, GCS 15, oriented to person, place, time, and situation. Moves all extremities. Normal gait. 16:32 : Pelvic Exam: External exam: is normal, Speculum exam: clot in vault removed, mild blood in vault, no active bleeding on exam, the nurse was present for the exam. Vital Signs: 15:05 BP 134 / 79; Pulse 74; Resp 18 S; Temp 97.3(TE); Pulse Ox 100% on R/A; Weight 74.84 kg aa5 (R); Height 5 ft. 1 in. (R); 16:00 BP 133 / 83; Pulse 76; Resp 18; Pulse Ox 99% on R/A; eh3 15:05 Body Mass Index 31.18 (74.84 kg, 154.94 cm) aa5 MDM: 15:12 Patient medically screened. kb 16:33 Data reviewed: vital signs, nurses notes. kb 16:34 Management of patient was discussed with the following: Dr mancia recommends follow kb up with surgeon. Counseling: I had a detailed discussion with the patient and/or guardian regarding: the historical points, exam findings, and any diagnostic results supporting the discharge/admit diagnosis, the need for outpatient follow up, an OB/Gyne specialist, to return to the emergency department if symptoms worsen or persist or if there are any questions or concerns that arise at home. 16:35 Test considered but Not performed: Labs: cbc considered. VSS, no active bleeding on kb exam. No dizziness, lightheadedness, shortness of breath. 03/27 15:21 Order name: Pelvic Exam Setup; Complete Time: 15:25 kb Administered Medications: No medications were administered Disposition Summary: 03/27/23 16:26 Discharge Ordered Location: Home kb Condition: Stable kb Diagnosis - Abnormal uterine and vaginal bleeding, unspecified kb Followup: kb - With: Emergency Department - When: As needed - Reason: Worsening of condition Followup: kb - With: Private Physician - When: 2 - 3 days - Reason: Recheck today's complaints, Continuance of care, Re-evaluation by your physician Discharge Instructions: - Discharge Summary Sheet kb - Laparoscopically Assisted Vaginal Hysterectomy, Care After kb Forms: - Medication Reconciliation Form kb - Thank You Letter kb - Antibiotic Education kb - Prescription Opioid Use kb - Patient Portal Instructions kb Signatures: Halle Dougherty FNP-C FNP-Ckb Calderon, Violetta, RN RN aa5 Manda Sesay, RN RN eh3
[2023-03-27 19:13] VITALS: TEMP 97.3
[2023-03-27 19:14] VITALS: BP 133/83; O2SAT 99
== END 2023-03-27 17:25 | disposition home or self-care (01) ==
LOC: ER 15:01
DX: N93.9 Abnormal uterine and vaginal bleeding, unspecified (principal); Z90.710 Acquired absence of both cervix and uterus
CPT/HCPCS: 99283

== ENCOUNTER 2025-01-20 09:54 | Inpatient (IN) | payer OTHER ==
--- OUTSIDE RECORDS SUMMARY | 2025-01-20 10:11 | XMS REPORT | Continuity of Care Document ---
Author Name Unknown Address [address] [place] [address] [facility] Address [address] [place] [address] Care Team Providers Care Environmental Projects Advisor Name Role Phone PCP, PATIENT DOES NOT HAVE A Primary Care Physic pari Unavailable Maria Arnold Attending Clinician Kiah Timmons RN Attending Clinician Unavailelder ble Le Doux FNMACY, Dixon Attending Clinician [phone] LE DOUX, DIXON Attending Clinician Unavailable Unknown, Attending Attending Clinician Unavailab lopez Ebrahim Esteban ARVIZU Attending Clinician + ESTEBAN LANDEROS Attending Clinician Unavailable Ebrahim HEATING ELEMENT BUILDEREsteban Attending Clinician + Unknown, Attending Attending Clinician Unavailab lopez Pcp, Patient Does Not Have A Attending Clinician Doctor Unassigned, [place] Attending Clinician U Alesia Charlton MD Attending Clinician ALESIA MADDEN Attending Clinician Unavailable Konstantin Bernard Attending Clinician KONSTANTIN RODRIGUEZ Attending Clinician Unavailable Maria Arnold Admitting Clinician Unavailabl e Physician, No Primary or Family Admitting Clinic pari Unavailable Payers Payer Name Policy Type Policy Number Effective Date Expirati on Date Source [facility] [id number] 2022 00:00:00 Allergies, Adverse Reactions, Alerts Allergy Name Allergy Type Status Severity Reaction(s) Onset Date Inactive Date Treating Clinician Comments Source No Known Allergie s DA Active 2019-09 00:00: 00 [facility] No Known Allergie s DA Active 2019-09 00:00: 00 [facility] No Known Allergie s DA Active 2019-09 00:00: 00 [facility] No Known Allergie s DA Active 2019-09 00:00: 00 [facility] NO KNOWN ALLERGIE S Drug Class Active [facility] Social History Social Habit Start Date Stop Date Quantity Comments Source Sexual orientation U [facility] ASSERTION Not [facility] Alcoholic beverage intake 2025-01-08 00:00:00 2025-01-08 00:00:00 Current drinker of alcohol (finding) [facility] History of Social function 2025-01-08 00:00:00 2025-01-08 00:00:00 [facility] Tobacco use and exposure 2023-09-18 00:00:00 2023-09-18 00:00:00 Smokeless tobacco non-user [facility] Alcohol intake 2023-09-18 00:00:00 2023-09-18 00:00:00 Current drinker of alcohol (finding) [facility] Alcohol Comment 2023-09-18 00:00:00 2023-09-18 00:00:00 socially [facility] Sex assigned at 1990 00:00:00 1990 00:00:00 [facility] Smoking Status Start Date Stop Date Source Tobacco smoking consumption unknown [facility] Never smoked tobacco [facility] Medications Ordered Medication Name Filled Medication Name Start Date Stop Date Current Medication? Ordering Clinician Indication Dosage Frequency Signature (SIG) Comments Components Source dexamethaso ne (DECADRON) 10 mg/mL injection 10 mg 01-08 22:00: 00 01-08 21:55 :00 No [id number] 10mg 10 mg, Intramuscu lar, ONCE, 1 dose, On Thu01/08/25 at 1700, Routine [facility] amoxicillin -pot clavulanate 875-125 mg per tablet 01-08 00:00: 00 01-19 04:59 :00 Yes [id number] 1{tbl} Take 1 tablet by mouth in the morning and 1 tablet in the evening. Do all this for 10 days. [facility] dexamethaso ne (DECADRON) 10 mg/mL injection 10 mg 12-20 21:00: 00 12-20 20:02 :00 No [id number] 10mg 10 mg, Intramuscu lar, ONCE, 1 dose, On Thu12/20/24 at 1600, Routine [facility] busPIRone 5 mg tablet 12-20 14:11: 24 Yes 5mg Take 1 tablet by mouth as needed. [facility] oseltamivir (TAMIFLU) 75 mg capsule 18 00:00: 00 12-05 04:59 :00 No [id number] 75mg Take 1 capsule by mouth in the morning and 1 capsule in the evening. Do all this for 5 days. [facility] SERTraline 50 mg tablet 09-18 09:01: 05 Yes 50mg Take 1 tablet by mouth in the morning. [facility] busPIRone 5 mg tablet 1- 09:01: 05 Yes 5mg Take 1 tablet by mouth as needed. [facility] dexamethaso ne (DECADRON) injection 10 mg 2022-09 10-22 16:37: 00 08-21 16:47 :00 No [id number] 10mg [facility] albuterol 90 mcg/actuati on inhaler 2022-09 00:00: 00 Yes [id number] 2{puff} Inhale 2 Puffs every 6 (six) hours as needed for Wheezing or Bronchospa sm. [facility] promethazin e-dextromet horphan 6.25-15 mg/5 mL syrup 2022-09 00:00: 00 08-20 05:59 :00 No [id number] 5mL Take 5 mL by mouth 4 (four) times daily for 10 days. [facility] Immunizations Ordered Immunization Name Filled Immunization Name Date Status Comments Source Influenza Virus Vaccine Quad IM, Preserv and ABX Free 6 MO-64 YRS (FLUCELVAX) 2023-06-24 00:00:00 Completed [facility] SARS-COV-2 COVID-19 MODERNA 12+ YRS VACCINE 2020-12-09 00:00:00 Completed [facility] SARS-COV-2 COVID-19 MODERNA 12+ YRS VACCINE 2020-11-11 00:00:00 Completed [facility] SARS-COV-2 COVID-19 MODERNA 12+ YRS VACCINE Unknown Completed [facility] Influenza Virus Vaccine Quad IM, Preserv and ABX Free 6 MO-64 YRS (FLUCELVAX) Unknown Completed [facility] SARS-COV-2 COVID-19 MODERNA 12+ YRS VACCINE Unknown Completed [facility] Influenza Virus Vaccine Quad IM, Preserv and ABX Free 6 MO-64 YRS (FLUCELVAX) Unknown Completed [facility] SARS-COV-2 COVID-19 MODERNA 12+ YRS VACCINE Unknown Completed [facility] Influenza Virus Vaccine Quad IM, Preserv and ABX Free 6 MO-64 YRS (FLUCELVAX) Unknown Completed [facility] SARS-COV-2 COVID-19 MODERNA 12+ YRS VACCINE Unknown Completed [facility] Influenza Virus Vaccine Quad IM, Preserv and ABX Free 6 MO-64 YRS (FLUCELVAX) Unknown Completed [facility] SARS-COV-2 COVID-19 MODERNA 12+ YRS VACCINE Unknown Completed [facility] Influenza Virus Vaccine Quad IM, Preserv and ABX Free 6 MO-64 YRS (FLUCELVAX) Unknown Completed [facility] SARS-COV-2 COVID-19 MODERNA 12+ YRS VACCINE Unknown Completed [facility] Influenza Virus Vaccine Quad IM, Preserv and ABX Free 6 MO-64 YRS (FLUCELVAX) Unknown Completed [facility] SARS-COV-2 COVID-19 MODERNA 12+ YRS VACCINE Unknown Completed [facility] Influenza Virus Vaccine Quad IM, Preserv and ABX Free 6 MO-64 YRS (FLUCELVAX) Unknown Completed [facility] SARS-COV-2 COVID-19 MODERNA 12+ YRS VACCINE Unknown Completed [facility] Influenza Virus Vaccine Quad IM, Preserv and ABX Free 6 MO-64 YRS (FLUCELVAX) Unknown Completed [facility] SARS-COV-2 COVID-19 MODERNA 12+ YRS VACCINE Unknown Completed [facility] SARS-COV-2 COVID-19 MODERNA 12+ YRS VACCINE Unknown Completed [facility] Vital Signs Vital Name Observation Time Observation Value Comments S ource Systolic blood pressure 2025-01-08 21:26:00 116 mm[Hg] [facility] Diastolic blood pressure 2025-01-08 21:26:00 74 mm[Hg] [facility] Heart rate 2025-01-08 21:26:00 85 /min [facility] Body temperature 2025-01-08 21:26:00 36.78 Marisol [facility] Respiratory rate 2025-01-08 21:26:00 21 /min [facility] Body height 2025-01-08 21:26:00 154.9 cm [facility] Body weight 2025-01-08 21:26:00 76.658 kg [facility] BMI 2025-01-08 21:26:00 31.93 kg/m2 [facility] Oxygen saturation in Arterial blood by Pulse oximetry 2025-01-08 21:26:00 97 /min [facility] Systolic blood pressure 2024-12-20 19:10:00 133 mm[Hg] [facility] Diastolic blood pressure 2024-12-20 19:10:00 83 mm[Hg] [facility] Heart rate 2024-12-20 19:10:00 78 /min [facility] Body temperature 2024-12-20 19:10:00 36.72 Marisol [facility] Respiratory rate 2024-12-20 19:10:00 17 /min [facility] Body weight 2024-12-20 19:10:00 76.975 kg [facility] BMI 2024-12-20 19:10:00 32.06 kg/m2 [facility] Oxygen saturation in Arterial blood by Pulse oximetry 2024-12-20 19:10:00 96 /min [facility] Systolic blood pressure 2023-12-01 00:02:00 142 mm[Hg] [facility] Diastolic blood pressure 2023-12-01 00:02:00 87 mm[Hg] [facility] Heart rate 2023-12-01 00:02:00 102 /min [facility] Body temperature 2023-12-01 00:02:00 37.22 Marisol [facility] Respiratory rate 2023-12-01 00:02:00 18 /min [facility] Body weight 2023-12-01 00:02:00 77.293 kg [facility] BMI 2023-12-01 00:02:00 32.20 kg/m2 [facility] Oxygen saturation in Arterial blood by Pulse oximetry 2023-12-01 00:02:00 98 /min [facility] Systolic blood pressure 2023-09-18 15:00:00 121 mm[Hg] [facility] Diastolic blood pressure 2023-09-18 15:00:00 84 mm[Hg] [facility] Heart rate 2023-09-18 15:00:00 69 /min [facility] Body temperature 2023-09-18 15:00:00 36.78 Marisol [facility] Respiratory rate 2023-09-18 15:00:00 16 /min [facility] Body height 2023-09-18 15:00:00 154.9 cm [facility] Body weight 2023-09-18 15:00:00 77.111 kg [facility] BMI 2023-09-18 15:00:00 32.12 kg/m2 [facility] Systolic blood pressure 2023-08-21 16:02:00 119 mm[Hg] [facility] Diastolic blood pressure 2023-08-21 16:02:00 71 mm[Hg] [facility] Heart rate 2023-08-21 16:02:00 65 /min [facility] Body temperature 2023-08-21 16:02:00 36.89 Marisol [facility] Respiratory rate 2023-08-21 16:02:00 16 /min [facility] Body height 2023-08-21 16:02:00 154.9 cm [facility] Body weight 2023-08-21 16:02:00 77.735 kg [facility] BMI 2023-08-21 16:02:00 32.38 kg/m2 [facility] Oxygen saturation in Arterial blood by Pulse oximetry 2023-08-21 16:02:00 98 /min [facility] Systolic blood pressure 2023-08-09 19:05:00 123 mm[Hg] [facility] Diastolic blood pressure 2023-08-09 19:05:00 74 mm[Hg] [facility] Heart rate 2023-08-09 19:05:00 67 /min [facility] Body temperature 2023-08-09 19:05:00 36.94 Marisol [facility] Respiratory rate 2023-08-09 19:05:00 17 /min [facility] Body height 2023-08-09 19:05:00 154.9 cm [facility] Body weight 2023-08-09 19:05:00 76.658 kg [facility] BMI 2023-08-09 19:05:00 31.93 kg/m2 [facility] Oxygen saturation in Arterial blood by Pulse oximetry 2023-08-09 19:05:00 97 /min [facility] Procedures Procedure Date / Time Performed Performing Clinicia n Source POCT MOLECULAR FLU 2024-12-20 19:57:00 Unknown, Attend [facility] POCT MOLECULAR COVID 2024-12-20 19:25:00 Unknown, Attarina muro [facility] POCT MOLECULAR STREP 2024-12-20 19:17:00 Unknown, Attarina muro [facility] POCT MOLECULAR FLU 2023-12-01 00:15:00 Unknown, Attend [facility] POCT SARS-COV-2 ANTIGEN (BINAX NOW) 2023-08-21 16:34:00 He Konstantin [facility] POCT MOLECULAR FLU 2023-08-21 16:12:00 Unknown, Attend [facility] POCT SARS-COV-2 ANTIGEN (BINAX NOW) 2023-08-09 19:29:00 Esteban Landeros [facility] POCT MOLECULAR FLU 2023-08-09 19:16:00 Unknown, Attend [facility] POCT MOLECULAR STREP 2023-08-09 19:14:00 Unknown, Attarina [facility] ASSIGNMENT OF BENEFITS 2023-08-09 18:55:54 Docto r Unassigned, Revere [facility] [id number] 2020-08-02 00:00:00 [email or web address] [facility] [id number] 2020-08-02 00:00:00 [email or web address] [facility] Encounters Start Date/Time End Date/Time Encounter Type Admission Type Attending Clinicians Care Facility Care Department Encounter ID Source 2020-07-15 13:31:00 Inpatient Maria Arnold [facility] AURELIA [id number] [facility] 2020-06-13 11:58:00 Inpatient EL Maria Arnold [facility] LD [id number] [facility] 2025-01-20 00:00:00 2025-01-20 09:27:44 Nurse Triage Kiah Dave Teresa D [facility] 1.2.840.114 350.1.13.10 4.2.7.2.686 [id number] [facility] 2025-01-12 00:00:00 2025-01-12 20:00:41 Telephone Dixon Keating [facility] 1.2.840.114 350.1.13.10 4.2.7.2.686 [id number] [facility] 2025-01-08 16:20:00 2025-01-08 19:08:02 Outpatient R DIXON KEATING [facility] [id number] [facility] 2025-01-08 16:20:00 2025-01-08 19:08:02 Urgent Care Dixon Keating Unknown, Attending [facility] 1.2.840.114 350.1.13.10 4.2.7.2.686 [id number] [facility] 2024-12-20 14:00:00 2024-12-20 14:20:00 Urgent Care Simonealexandira Juanmendel Unknown, Attending [facility] 1.2.840.114 350.1.13.10 4.2.7.2.686 [id number] [facility] 2024-12-20 14:00:00 2024-12-20 14:00:00 Outpatient R ESTEBAN LANDEROS [facility] [id number] [facility] 2023-11-30 19:00:00 2023-11-30 19:20:00 Urgent Care SimoneEsteban ibrahim Unknown, Attending [facility] 1.2.840.114 350.1.13.10 4.2.7.2.686 [id number] [facility] 2023-11-30 19:00:00 2023-11-30 19:00:00 Outpatient R ESTEBAN LANDEROS [facility] [id number] [facility] 2023-10-26 00:00:00 2023-10-26 00:00:00 Patient Secure Msg Pcp, Patient Does Not Have A [facility] 1.2.840.114 350.1.13.10 4.2.7.2.686 [id number] [facility] 2023-10-26 00:00:00 2023-10-26 00:00:00 Patient Secure Msg Pcp, Patient Does Not Have A [facility] 1.2.840.114 350.1.13.10 4.2.7.2.686 [id number] [facility] 2023-10-26 00:00:00 2023-10-26 00:00:00 Patient Secure Msg Doctor Unassigned, [place] [facility] 1.2.840.114 350.1.13.10 4.2.7.2.686 [id number] [facility] 2023-10-26 00:00:00 2023-10-26 00:00:00 Patient Secure Msg Pcp, Patient Does Not Have A [facility] 1.2.840.114 350.1.13.10 4.2.7.2.686 [id number] [facility] 2023-09-25 00:00:00 2023-09-25 00:00:00 Telephone Alesia Madden [facility] 1.2.840.114 350.1.13.10 4.2.7.2.686 [id number] [facility] 2023-09-18 09:00:00 2023-09-18 09:15:24 Outpatient R ALESIA MADDEN [facility] [id number] [facility] 2023-09-18 09:00:00 2023-09-18 09:15:24 Office Visit Alesia Madden [facility] 1.2.840.114 350.1.13.10 4.2.7.2.686 [id number] [facility] 2023-08-21 09:40:00 2023-08-21 10:48:55 Urgent Care Konstantin Rodriguez Unknown, Attending [facility] BU[facility] 1.2.840.114 350.1.13.10 4.2.7.2.686 [id number] [facility] 2023-08-21 09:40:00 2023-08-21 10:48:55 Outpatient R KONSTANTIN RODRIGUEZ [facility] [id number] [facility] 2023-08-09 13:00:00 2023-08-09 13:20:00 Urgent Care Esteban Landeros Unknown, Attending [facility] 1.2.840.114 350.1.13.10 4.2.7.2.686 [id number] [facility] 2023-08-09 13:00:00 2023-08-09 13:00:00 Outpatient R BRANDIESTEBAN Gibson [facility] [id number] [facility] 2023-08-09 00:00:00 2023-08-09 00:00:00 Orders Only Doctor Unassigned, Revere [facility] 1.2.840.114 350.1.13.10 4.2.7.2.686 [id number] [facility] 2020-07-12 10:00:00 2020-07-12 10:00:00 Outpatient Maria Arnold [facility] [id number] [facility] 2020-03-22 10:00:00 2020-03-22 10:00:00 Outpatient Maria Arnold [facility] [id number] [facility] 2020-02-27 11:00:00 2020-02-27 11:00:00 Outpatient Maria Arnold [facility] [id number] [facility] Results Test Description Test Time Test Comments Results Result Co mments Source [facility] Molecular [id number] 19:34:43* Test Item Value Reference Range Interpretation Comme nts SARS-CoV-2 Rapid ID NOW (test code = 98061-5) Not Detected Not Detected ELISHA (test code = ELISHA) ID NOW COVID-19 As say is an isothermal nucleic acid amplification test intended for the qualitative detection of nucleic acid from SARS-CoV-2 viral RNA in nasopharyngeal (SPACECRAFT SYSTEMS ENGINEER) specimens. It is used under Emergency Use Authorization (EUA) by FDA. The limit of detection (LOD) of the assay is 125 Genome Equivalents/mL. Please note that a new specimen is requested for testing, if clinically indicated, on tests performed past validated specimen stability time. A positive result is indicative of the presence of SARS-CoV-2 RNA. ?Clinical correlation with patient history and other diagnostic information is necessary to determine patient infection status. A negative (Not Detected) result does not preclude SARS-CoV-2 infection. In patients with a high suspicion of SARS-CoV-2 infection, negative results should be treated as presumptive negative and a new specimen should be tested with alternative nucleic acid amplification molecular test. Indeterminate: Unable to generate a valid test result on this specimen. ?Please collect a new specimen for repeat testing if clinically indicated. Lab Interpretation (test code = 13994-4) Normal [facility] MOLECULAR [id number] 19:25:11* Test Item Value Reference Range Interpretation Comme nts POCT Molecular Strep (test c ode = 56572-3) Negative Negative Lab Interpretation (test cod e = 01083-8) Normal [facility] Molecular [id number] 00:20:48* Test Item Value Reference Range Interpretation Comme nts POCT Molecular FluA (test co de = 14673-6) Positive Negative A Lab Interpretation (test cod e = 36301-5) Abnormal [facility] SARS-COV-2 ANTIGEN (BINAX NOW)2023-08-21 16:34:00* Test Item Value Reference Range Interpretation Comme nts POCT SARS-COV-2 ANTIGEN (margi t code = 96324-2) Not Detected Not Detected On board controls acceptable with C Line (test code = 3574) Yes Lab Interpretation (test cod e = 51996-7) Normal [facility] MOLECULAR [id number] 16:23:52* Test Item Value Reference Range Interpretation Comme nts POCT Molecular FluA (test co de = 29754-8) Negative Negative POCT Molecular FluB (test co de = 39479-3) Negative Negative Lab Interpretation (test cod e = 88250-6) Normal [facility] SARS-COV-2 ANTIGEN (BINAX NOW)2023-08-09 19:30:00* Test Item Value Reference Range Interpretation Comme [facility] POCT SARS-COV-2 ANTIGEN (margi t code = 97990-5) Not Detected Not Detected On board controls acceptable with C Line (test code = 3574) Yes [facility] MOLECULAR [id number] 19:28:53* Test Item Value Reference Range Interpretation Comme nts POCT Molecular FluA (test co de = 62218-8) Negative Negative POCT Molecular FluB (test co de = 84392-1) Negative Negative Lab Interpretation (test cod e = 11078-1) Normal [facility] MOLECULAR [id number] 19:22:56* Test Item Value Reference Range Interpretation Comme [facility] POCT Molecular Strep (test c ode = 50980-1) Negative Negative Lab Interpretation (test cod e = 81180-2) Normal [facility],[id number] 18:34:00* Test Item Value Reference Range Interpretation Comme [facility] FALLOPIAN TUBE,BIOPSY (test code = FALLBX) RUN DATE: 08/13/20 [facility] PAGE 1 RUN TIME: 1216 Specimen Inquiry RUN USER: INTERFACE PATIENT: CAITLYN ARNOLD LOC: [facility]UMA U #: [id number] AGE/SX: 29/F ROOM: [facility] RE08/02/20REG DR: Maria Arnold MD : 89 BED: A DIS: 08/05/20 STATUS: DIS IN TLOC: SPEC #: [id number] RECD: 08/03/20 STATUS: BLAKE REQ #: [id number] OSMAN: 08/03/20- SUBM DR: Maria Arnold MD ENTERED: 08/03/20 SP TYPE: FALLBX JOSEHR DR: ORDERED: LEVEL IV CODES: [id number] - FALLOPIAN TUBE PROCEDURES: LEVEL IV (Incomplete) TISSUES: FALLOPIAN TUBE, NOS - LEFT FALLOPIAN TUBE CYSTS CLINICAL HISTORY 29 year old, 39.1 weeks, (jaleesa) FINAL DIAGNOSIS Specimen designated "left fallopian tube cyst": - benign paratubal cyst CPT code(s): 92751 cds/wpd GROSS DESCRIPTION ANATOMIC SOURCE OF TISSUE (per Requisition): Fallopian tube cyst, left The specimen is received in a formalin-filled container, labeled with the patient's name and designated "fallopian tube cyst, left". The specimen consists of three semi-translucent obregon-pink cysts ranging from 0.9 to 1.5 cm. The cysts are filled with clear fluid. A support representative section of each cyst is submitted in A1. kaley 08/03/20 Signed Rahul Prince Nader 08/06/20 1834 END OF REPORT HGB [id number] 07:45:00* Test Item Value Reference Range Interpretation Comme nts HEMOGLOBIN (test code = HGB) 7.2 g/dL 10.7-13.9 L HEMATOCRIT (test code = HCT) 25.4 % 32.1-42.1 L PIH [id number] 16:34:00* Test Item Value Reference Range Interpretation Comme nts CREATININE (test code = CREAT) 0.4 mg/dL 0.5-1.0 L SGOT/AST (test code = AST) 28 units/L 15-37 N SGPT/ALT (test code = ALT) 20 units/L 12-78 N LACTIC DEHYDROGENASE(LDH) (t est code = LDH) 281 units/L 81-234 H : *URIC [id number] 16:34:00* Test Item Value Reference Range Interpretation Comme nts URIC ACID (test code = URIC) 2.4 mg/dL 2.6-6.0 L : *BILIRUBIN DIRECT AND [id number] 16:34:00* Test Item Value Reference Range Interpretation Comme nts BILIRUBIN TOTAL (test code = BILT) 0.3 mg/dL 0.2-1.0 N BILIRUBIN DIRECT (test code = BILD) 0.1 mg/dL <0.2 N BILIRUBIN INDIRECT (test cod e = BILIND) 0.2 mg/dL 0.1-1.1 N : *COVID 19 Asymptomatic IH [id number] 19:57:00* Test Item Value Reference Range Interpretation Comme nts COVID 19 Asymptomatic IH AG (test code = COVNONPUIAG) NEGATIVE NEGATIVE This test has be en authorized only for the detection ofproteins from SARS-CoV-2, not for any other viruses orpathogens. Negative results should be treated as presumptive andconfirmed with a molecular assay, if necessary for patientmanagement. Negative results do not rule out COVID-19 andshould not be used as the sole basis for treatment orpatient management decisions, including infection controldecisions. Negative results should be considered in thecontext of a patient's recent exposures, history and thepresence of clinical signs and symptoms consistent withCOVID-19. This test has not been FDA cleared or approved; the test hasbeen authorized by FDA under an Emergency Use Authorization(EUA) for use by laboratories certified under the CLIA thatmeet the requirements to perform moderate, high or waivedcomplexity tests. This test is authorized for use at thePoint of Care (POC), i.e., in patient care settingsoperating under a CLIA Certificate of Waiver, Certificate ofCompliance, or Certificate of Accreditation. This test is only authorized for the duration of thedeclaration that circumstances exist justifying theauthorization of emergency use of in vitro diagnostic testsfor detection and/or diagnosis of COVID-19 under Iasslzx443(b)(1) of the Act, 21 U.S.C. 360bbb-3(b)(1), unless theauthorization is terminated or revoked sooner. AG HEPATITIS B [id number] 17:59:00* Test Item Value Reference Range Interpretation Comme nts AG HEPATITIS B SURFACE (test code = HBSAG) NONREACTIVE NONREACTIVE : *IS CONSENT FORM SIGNED FOR HIV TESTING? YAB [id number] 17:59:00* Test Item Value Reference Range Interpretation Comme nts AB TREPONEMA (test code = TREPAB) NONREACTIVE NONREACTIVE : *IS CONSENT FORM SIGNED FOR HIV TESTING? YAB HIV 1 17:59:00* Test Item Value Reference Range Interpretation Comme nts AB HIV 1 2 (test code = SYF25RR) NONREACTIVE NONREACTIVE Done by Siemens travayl 4th Gen HIV Ag/Ab Combo Screen : *IS CONSENT FORM SIGNED FOR HIV TESTING? YCBC W/AUTO [id number] 17:00:00* Test Item Value Reference Range Interpretation Comme nts WHITE BLOOD CELL (test code = WBC) 8.7 K/mm3 6.6-12.1 N RED BLOOD CELL (test code = RBC) 4.08 M/mm3 3.45-5.01 N HEMOGLOBIN (test code = HGB) 8.9 g/dL 10.7-13.9 L HEMATOCRIT (test code = HCT) 31.9 % 32.1-42.1 L MEAN CELL VOLUME (test code = MCV) 78 fL 84.1-94.8 L MEAN CELL HGB (test code = MCH) 21.8 pg 27-35 L MEAN CELL HGB CONCETRATION (test code = MCHC) 27.9 gm/dL 32.2-34.1 L RED CELL DISTRIBUTION WIDTH (test code = RDW) 18.4 % 12.4-16.5 H PLATELET COUNT (test code = PLT) 375 K/mm3 133-385 N MEAN PLATELET VOLUME (test code = MPV) 10.4 fl 9.1-12.7 N NEUTROPHIL % (test code = NT%) 70.2 % 56.5-79.4 N LYMPHOCYTE % (test code = LY%) 19.7 % 14.3-34.3 N MONOCYTE % (test code = MO%) 6.0 % 5.1-10.4 N EOSINOPHIL % (test code = EO%) 2.9 % 0.1-3.0 N BASOPHIL % (test code = BA%) 0.7 % 0.1-1.0 N NEUTROPHIL # (test code = NT#) 6.1 K/mm3 LYMPHOCYTE # (test code = LY#) 1.7 K/mm3 MONOCYTE # (test code = MO#) 0.5 K/mm3 EOSINOPHIL # (test code = EO#) 0.25 K/mm3 BASOPHIL # (test code = BA#) 0.1 K/mm3 RBC MORPHOLOGY REQUIRED (test code = RBCM) ABNORMAL NORMAL +1 ANISOCYTOS IS PLATELET MORPHOLOGY REQUIRED (test code = PLTMR) NORMAL NORMAL - US FLW [id number] 14:30:00 [facility] : 1990 Sex: F Patient Name: CAITLYN ARNOLD Unit No: [id number] EXAMS: [place]: [id number] [place] [address] [facility] [address] [place], [place] [address] OBSTETRICAL ULTRASOUND REPORT Pat. Name: CAITLYN ARNOLD Pat. No: [id number] Study Date: 07/30/2020 1:32pm , Age: 04 1990, 29 Pregnancies: 4, Para 3 LMP: 10/31/2019 GA by LMP: 39w0d GA by 1st: 38w5d GA by US: 39w5d GA Selected: 38w5d (From First S) MARIE: 08/08/2020 Referring MD: Maria Arnold Operations Management Trainee: Katya Waldron RDMS CPT4: USPREGFU Admitting MD: Maria Arnold Hist/Ind: SCAN 3 EXCESSIVE GROWTH MEASUREMENTS AGE GROWTH EVALUATION Measurement GA Range Srce %for GA Ratios ----- ---- ------- BPD 9.7 cm 40w3d Hadl BPD FL/BPD 0.79 (0.71 - 0.87) HC 35.6 cm Hadl HC FL/AC 0.20 (0.20 - 0.24* APD 12.1 cm APDHC/AC 0.92 (0.90 - 1.09) TAD 12.6 cm TAD CI 0.80 (0.70 - 0.86) AC 38.8 cm Hadl AC FL 7.7 cm 39w2d (41s0t-71h7b) Hadl FL 58% HL 6.4 cm 37w1d (19f1i-25q0w) Daniel HL 23% GA for sonogram 39w5d (40s6g-51v1e) Weight Estimate: based on (HC,FL) Hadlock Weight: 4451 gm (2790-8367) Hadlo : 9lbs, 13oz Normal: 3130 gm (0153-5242) Brenn Wt% >90 for 38.7 wks Heart Rate: 137 bpm Amniotic Fluid Index: 21.5cm (07.2-23.0) Q1: 5.1cm Q2: 6.3cm Q3: 5.1cm Q4: 4.9cm MATERNAL ANATOMY Ovaries LxHxW (cm) Right 3.4 x 1.2 x 2.2 Vol: 4.7cc Left 3.2 x 1.4 x 2.8 Vol:6.6cc CLINICAL SUMMARY Type of Gestation: Sanchez Intrauterine in vertex presentation. size is large for gestational age. growth: Suspect LGA fetus (>90%) [facility] [place] NAME: CAITLYN ARNOLD Radiology Department PHYS: 05 - Maria Arnold [address] : 1990 AGE: 29 SEX: F [place], [place] [address] LOC: ROMELIAU PHONE #: [phone] EXAM DATE: 07/30/2020 STATUS: PRE IN FAX #: [phone] RAD NO: Page 1 Signed Report (CONTINUED) Patient Name: CAITLYN ARNOLD Unit No: [id number] EXAMS: CPT CODE: [id number] [place] [address] (Continued) motion and organs seen: Fetalheart motion seen body and limb movements seen tone noted breathing movements observed Placental location: Posterior Placental maturity : Grade 2 There is no evidence of placenta previa. Amniotic fluid volume is normal. Uterus and adnexa: No significant abnormality is seen. Thank you for allowing us to participate in the care of this patient. Fernando Keith M.D. Electronic Signature 07/30/2020 02:30pm at 1430 Reported and signed by: Fernando Keith MD CC: Maria Arnold MDTechnologist: Katya Waldron RDMS Probe: Trnscrbd D/ (1430) [email or web address] Orig Print D/T: S: 07/30/2020 (8653) [facility] [place] NAME: FREDRICK,PORBAMBI Radiology Department PHYS:Maria Reis [address] : 1990 AGE: 29 SEX: F [place] [address] LOC: ROMELIAU PHONE #: [phone] EXAM DATE: 07/30/2020 STATUS: PRE IN FAX #: [phone] RAD NO: Page 2 Signed Report Patient Name: CAITLYN ARNOLD Unit No: [id number] EXAMS: CPT CODE: [id number] [place] UP [address] (Continued) [facility] [place] NAME: ZAHRAA ARNOLDBAMBI Radiology Department PHYS: Maria Reis [address] : 1990 AGE: 29 SEX: F [place] [address] LOC: RAJAT PHONE #: [phone] EXAM DATE: 07/30/2020 STATUS: PRE IN FAX #: [phone] RAD NO: Page 3 Signed Report- US FLW UP 2020-07-12 11:08:00 [facility] : 1990 Sex: F Patient Name: CAITLYN ARNOLD Unit No: [id number] EXAMS: CPT CODE: [id number] [place] [address] [facility] [address] [place], [place] [address] OBSTETRICAL ULTRASOUND REPORT Pat. Name: CAITLYN ARNOLD Pat. No: [id number] Study Date: 07/12/2020 10:19am , Age: 04 1990, 29 Pregnancies: 4, Para 3 LMP:Unknown GA by 1st: 36w1d GA by US: 38w2d GA Selected: 36w1d (From First S) MARIE: 08/08/2020 Referring MD: Maria Arnold Operations Management Trainee: Janny Carolina RDMS, RVT CPT4: USPREGFU Admitting MD: Jorge Arnold Hist/Ind: SCAN 1 SIZE AND DATES MEASUREMENTS AGE GROWTH EVALUATION Measurement GA Range Srce %for GA Ratios ----- ---- ------- BPD 9.4 cm 39w0d (14c3j-00m9d) Hadl BPD 92% FL/BPD 0.76 (0.71 - 0.87) HC 35.3 cm Hadl HC FL/AC 0.20 (0.20 - 0.24* APD 11.5 cm APD HC/AC 0.98 (0.92 - 1.11) TAD 11.5 cm TAD CI 0.77 (0.70 - 0.86) AC 36.1 cm 40w2d (29q3i-80b0l) Hadl AC >95 FL 7.1 cm 36w2d (27a0l-82r8p) Hadl FL 51% HL 6.4 cm 37w1d (73q5m-01n3e) Daniel HL 66% GA for sonogram 38w2d (87w9r-79x5d) Weight Estimate: based on (BPD,HC,AC,FL) Hadlock Weight: 3713gm (3318-5652) Hadlo : 8lbs, 2oz Normal: 2681 gm (4565-1557) Brenn Wt% >90 for 36.1 wks Cervical [...] age. growth: Suspect LGA fetus (>90%) [facility] [place] NAME: CAITLYN ARNOLD Radiology Department PHYS: Maria Reis [address] : 1990 AGE: 29 SEX: Travis [place], [place] [address] LOC: LATHA PHONE #: EXAM DATE: 07/12/2020 STATUS: PRE CLI FAX #: [phone] RAD NO: Page 1 Signed Report (CONTINUED) Patient Name: ZAHRAA ARNOLDBAMBI Unit No: [id number] EXAMS: CPT CODE: [id number] [address] (Continued) motion and organs seen: heart motion seen body and limb movements observed tone noted breathing movements observed abnormalities observed:None seen at this exam Placental location: Posterior [...] [email or web address] Orig Print D/T: S: 07/12/2020 (1108) [facility] [place] NAME: CAITLYN ARNOLD Radiology Department PHYS: Maria Reis [address] : 1990 AGE: 29 SEX: [place] [address] LOC: AnandRAD PHONE #: [phone] EXAM DATE: 07/12/2020 STATUS: PRE CLI FAX #: [phone] RAD NO: Page 2 Signed Report Patient Name: CAITLYN ARNOLD Unit No: [id number] EXAMS: CPT CODE: [id number] [place] [address] (Continued) [facility] NAME: CAITLYN ARNOLD Radiology Department PHYS: COOJA. - FredrickMaria Friedman Arthur [address] : 1990 AGE: 29 SEX: [place] [address] LOC: AnandRAD PHONE #: [phone] EXAM DATE: 07/12/2020 STATUS: PRE CLI FAX #: [phone] RAD NO: Page 3 Signed Report- US PREG UT [id number] 11:13:00Patient Name: CAITLYN ARNOLD Unit No: [id number] EXAMS: CPT CODE: [id number] US PREG [place] TRANSVAGINAL [address] [address] OBSTETRICAL ULTRASOUND REPORT --- Pat. Name: CAITLYN ARNOLD Pat.No: [id number] Study Date: 03/22/2020 10:15am , Age: 04 1990, 29 Pregnancies: 4, Para3 LMP: Unknown GA by US: 20w0d GA Selected: 20w1d (From Known E) MARIE: 08/08/2020 Referring MD: Maria Arnold Operations Management Trainee: Sophia Sher RDMS CPT4: USPRUTTRVG Admitting MD: Maria Arnold Hist/Ind: SCAN 1 ANATOMY MEASUR EMENTS AGE GROWTH EVALUATION Measurement GA Range Srce %for GA Ratios ---- ------- BPD 4.5 cm 19w4d (56a2s-04e9k) Hadl BPD 23% FL/BPD 0.73 HC 18.0 cm 20w2d (18w5d- 22w0d) Hadl HC 55% FL/AC 0.21 APD 4.9 cm APD HC/AC 1.16 (1.06 - 1.24) TAD 5.0 cm TAD CI 0.71 (0.70 - 0.86) AC 15.6 cm 20w3d (19i1j-49m0v) Hadl AC 57% FL 3.3 cm 20w0d (48z3x-81y9r) Hadl FL 46% HL 3.2 cm 20w5d (21p6v-44y2d) Daniel HL 59% GA for sonogram 20w0d (61w6r-46f7d) Weight Estimate: based on (BPD,HC,AC,FL) Hadlock Weight: 357 gm (305-409) Hadlock : 0lbs,12oz Cervical Length: 4.7 cm Heart Rate: 152 bpm MATERNAL ANATOMY Ovaries LxHxW (cm) Right 2.7 x 2.0 x 2.2 Vol: 6.2cc Left 2.9 x 1.3 x 2.3 Vol: 4.5cc -- CLINICAL SUMMARY Type of Gestation: Sanchez Intrauterine in transverse presentation. size is appropriate for gestational age. growth: Co nsistent with normal growth motion and organs seen: heart motion seen body and limb movements seen Four chamber heart observed Left ventricular [facility] ([facility]) [facility]N ARNOLD Radiology Department PHYS: TIMOTHY.05 - Maria Arnold [address] : 1990 AGE: 29 SEX: F [place], [place] [address] LOC: AnandRAD PHONE #: [phone] EXAM DATE: 03/22/2020 STATUS: REANNA [facility] FAX #: [phone] RAD NO: Page 1Signed Report (CONTINUED) Patient Name: CAITLYN ARNOLD Unit No: [id number] EXAMS: CPT CODE: [id number] [facility] TRANSVAGINAL [address] (Continued) Right ventricular outflow tract (RVOT) seen Normal intracranial anatomy seen Umbilical cord insertion in fetus seen stomach, Renal Fossa, Bladder and Spine seen Three vessel umbilical cord noted abnormalities observed: None seen at this examPlacental location: Posterior Placental maturity : Grade 1 There is no evidence of placenta previa. Amniotic fluid volume is normal. Uterus and adnexa: No significant abnormality is seen. Thank you for allowing us to participate in the care of this patient. Leonel Mishra M.D. Electronic Signature 03/22/2020 11:13am at 1113 Reported and signed by: Leonel Mishra MD CC: Maria Arnold MD Technologist: Sophia Sher, [facility] Probe: [id number] Trnscrbd D/ (1113) t.SDR.YOS Orig Print D/T: S: 03/23/2020 (0805) [facility] [place] NAME: FREDRICKCAITLYN Radiology Department PHYS: KSBrandynREBECCA Wilfredo ArnoldMaria Gibson [address] : 1990 AGE: 29 SEX: F [place], [place] [address] LOC:Travis.RAD PHONE #: [phone] EXAM DATE: 03/22/2020 STATUS: DEP CLI FAX #: [phone] RAD NO: Page2 Signed Report Patient Name: CAITLYN ARNOLD Unit No: [id number] EXAMS: CPT CODE: [id number] US PREGUT TRANSVAGINAL [address] (Continued) [facility] Department PHYS: TIMOTHY.Roxanna Maria Daley [address] : 1990 AGE: 29 SEX: F [place] LOC: Travis.RAD PHONE #: [phone] EXAM DATE: 03/22/2020 STATUS: DEP CLI FAX #: [phone] RAD NO: Page 3 Signed Report- US PREG AFTER [id number] 11:13:00Patient Name: CAITLYN ARNOLD Unit No: [id number] EXAMS: CPT CODE: [id number] US PREG AFTER TRI [address] [facility] [address] [place], [place] [address] OBSTETRICAL ULTRASOUND REPORT ----- Pat. Name: CAITLYN ARNOLD Pat. No: [id number] Study Date: 03/22/2020 10:15am , Age: 04 1990, 29 Pregnancies: 4, Para 3LMP: Unknown GA by US: 20w0d GA Selected: 20w1d (From Known E) MARIE: 08/08/2020 Referring MD: [employer] Operations Management Trainee: Sophia Sher RDMS CPT4: [id number] Admitting MD: MARIA ARNOLD Hist/Ind: SCAN 1 ANATOMY MEASUREMENTS AGE GROWTH EVALUATION Measurement GA Range Srce %for GA Ratios ----- ---- ------- BPD 4.5 cm 19w4d (41c3v-37w8l) Hadl BPD 23% FL/BPD 0.73 HC 18.0 cm 20w2d (36g9b-15f1a) Hadl HC 55% FL/AC 0.21 APD 4.9 cm APD HC/AC 1.16 (1.06 - 1.24) TAD 5.0 cm TAD CI 0.71 (0.70 - 0.86) AC 15.6 cm 20w3d (36z4k-61e4g) Hadl AC 57% FL 3.3 cm 20w0d (12p3u-76m8o) Hadl FL 46% HL 3.2 cm 20w5d (14z3g-31d4r) Daniel HL 59% GA for sonogram 20w0d (67g0v-81m5p) Weight Estimate: based on (BPD,HC,AC,FL) Hadlock Weight: [...] Left ventricular outflow tract (LVOT) seen [facility] NAME: CAITLYN ARNOLD Radiology Department PHYS: TIMOTHY.05 - Maria Arnold [address] : 1990 AGE: 29 SEX: F [place], [place] [address] LOC: AnandRAD PHONE #: [phone] EXAM DATE: 03/22/2020 STATUS: REG CLI FAX #: [phone] RAD NO: Page 1 Signed Report (CONTINUED) Patient Name: CAITLYN ARNOLD Unit No: [id number] EXAMS: CPT CODE: [id number] US PREG AFTER 1ST TRI [address] (Continued) Right ventricular outflow tract (RVOT) seen Normal intracranial anatomy seen Umbilical cord insertion in fetus seen stomach, Renal Fossa, Bladder and Spine seen Three vessel umbilical cord noted abnormalities observed: None seen at [...] Sophia Sher RDMS Probe: Trnscrbd D/ (1113) t.SDR.YOS Orig Print D/T: S: 03/22/2020 (1113) [facility] [place] NAME: FREDRICKCAITLYN Radiology Department PHYS: TIMOTHY.05 - Maria Arnold [address] : 1990 AGE: 29 SEX: F [place], [place] [address] LOC: AnandRAD PHONE #: EXAM DATE: 03/22/2020 STATUS: REG CLI FAX #: [phone] RAD NO: Page 2 Signed Report Patient Name: CAITLYN ARNOLD Unit No: [id number] EXAMS: CPT CODE: [id number] US PREG AFTER 1ST TRI [address] (Continued) [facility] [place] NAME: CAITLYN ARNOLD Radiology Department PHYS: TIMOTHY. - Maria Arnold [address] : 1990 AGE: 29 SEX: F [place], [place] [address] LOC: AnandRAD PHONE #: [phone] EXAM DATE: 03/22/2020 STATUS: REG CLI FAX #: [phone] RAD NO: Page 3 Signed Report- MRI ABDOMEN W/O [id number] 19:00:00Patient Name: CAITYLN ARNOLD Unit No: [id number] EXAMS: CPT CODE: [id number] MRI ABDOMEN W/O CONT 29313 MRI of the abdomen February 27, 2020 [...] and bulging of the anterior abdominal wall midline at the linea alba with increased distance between the rectus sheath musculature immediately above and below the umbilicus. Maximum distance of separation at the umbilical level is approxima tely 3 cm. Mesentery and bowel is present within the [...] signed by: Asuncion Carrasquillo MD CC: Maria Arnold MD Technologist: Shaista Guidry, RT Trnscrbd D/ (190) Denise Orig Print D/T: S: 02/28/2020 (1031) [facility] [place] NAME: FREDRICKCAITLYN Radiology Department PHYS: - Maria Arnold [address] : 1990 AGE: 29 SEX: F [place], [place] [address] LOC: LATHA PHONE #: [phone] EXAM DATE: 02/27/2020 STATUS: REANNA SANCHEZ FAX #: [phone] RAD NO: Page 1 Signed Report Notes Date/Time Note Provider Source 2025-01-20 09:11:00 Regarding: dizziness x 1 day, stomach pain and diarrhea x 4 days ----- Message from Patient Television Tube Inspector sent at 01/20/2025 9:08 AM CDT ----- Caitlyn Arnold is a 34 year old female dizziness x 1 day, stomach pain and diarrhea x 4 days Kiah Dave RN [facility] 2025-01-20 09:11:00 Nurse's Note: 9:12 AM Caitlyn Arnold is a 34 year old female. Called patient. Identification verified by two patient identifiers (name and date of ). "Ever since I was prescribed the amoxicillin a week and a half ago, I was having diarrhea at first. Then I called to see if they could switch me to a different antibiotics and they told me it was an expected side effect and to take probiotics. I'm having severe abdominal pain that I can't even sleep. I'm having weird diarrhea with mucus and blood specks. I'm dizzy now and going to the bathroom every hour. Yesterday I took Pepcid AC and the probiotic and something else I don't remember. I stopped taking the antibiotics 3 days ago." Adult Triage Assessment Last Clinic Visit: 01/08/25 in urgent care clinic for recurrent sinusitis Primary Symptom: pain Onset / Duration: 3 days ago pain increased Location / Description: feels like it's in her intestines and lower back between her shoulder blades Pain / Severity: 6/10 right now, this morning it was 7-8 out of 10 Associated Symptoms: stool every hour, dizziness (when she moves too suddenly), nausea, decreased appetite Fever / Method: denies Hydration: no changes to usual self Treatment so far: 4 pepto bismol Effect on ADL's: significant change LMP: hx of hysterectomy Pre-existing condition / Immunocompromised: severe anemia Reason for Disposition Blood in bowel movements (Exception: Blood on surface of BM with constipation.) Protocols used: Abdominal Pain - Unhasg-YXEWT-XH Disposition: After assessment, triage, and protocol review, patient advised to go to the ED for further evaluation. She verbalized understanding. Kiah Dave DNP, RN, [facility]- 01/20/25 9:27 AM [facility] 2025-01-12 19:57:29 Educated pt on normal side effects of the antibiotic she is currently on. Informed pt the diarrhea she's c/o is due to the antibiotic. Pt verbalized understanding. Rae Rosario MA [facility] 2025-01-12 14:08:26 Caitlyn Arnold is a 34 year old female Patient calling to request an alt medication to the amoxicillin-pot clavulanate 875-125 mg per tablet given Stated it has given her Diarrhea. Please call back at [phone] Please send to: [facility] [address] [facility] [address] [place] [phone] Thank you Tresa Orta [facility] 2023-09-25 16:28:31 Images from the original note were not included. Name and verified. Patient informed of lab results and verbalized understanding. BASE PROGRAMMER ANALYST Yaz Bass MA [facility] 2023-09-25 16:18:05 Patient is requesting to go over lab results. BASE PROGRAMMER ANALYST Oneyda Hanson [facility] 2020-08-05 12:36:00 [facility] ([facility]) OB Disch REPORT#:[id number] REPORT STATUS: Signed DATE:08/05/20 TIME: 1236 PATIENT: CAITLYN ARNOLD UNIT #: [id number] ROOM/BED: [address] : [birth year] AGE: 29 SEX: F ATTEND: Maria Arnold MD ADM AUTHOR: Maria Arnold MD * ALL edits or amendments must be made on the electronic/computer document * Subjective Subjective Admission EGA: Weeks: 39 Days: 1 EGA at delivery (wks/days): 39 weeks (1 day) Status/day: post operative (day 3) Patient reports: Patient reports: Yes: normal lochia, pain management effective, tolerating po well, voiding well, voiding without pain, tolerating ambulation, flatus. No: complaints, bowel movement, nausea, vomiting, excessive bleeding. Objective General VS: Vital Signs Date Temp Pulse Resp B/P B/P Mean Pulse Ox FiO2 08/04-08/05 98.3-98.8 70-84 16- 111-135/69-83 88.0 Last Documented: Result Date Time B/P 111/74 08/05 075 Temp 98.8 08/05 0752 Pulse 84 08/05 0752 Resp 20 08/05 0752 B/P Mean 88.0 08/04 1628 Pulse Ox 98 08/03 1555 Patient Weight Weight (lb): 184 Weight (oz): Weight (kg): 83.461 Physical Exam Neuro: Exam: alert, normal speech Abdomen: post gravid, soft, appropriately tender Incision site: well approximated edges, bertha intact (Insorb), dressing clean dry, [...] Bilirubin (0.2 - 1.0 mg/dL) 0.3 08/02 1506 Direct Bilirubin (<0.2 mg/dL) 0.1 08/02 1506 [...] RDW (12.4 - 16.5 %) 18.4 H 07/302 Plt Count (133 - 385 K/mm3) 375 07/302 MPV (9.1 - 12.7 fl) 10.4 07/302 Neut % (Auto) (56.5 - 79.4 %) 70.2 07/30 1512 Lymph % (Auto) (14.3 - 34.3 %) 19.7 07/302 [place] % (Auto) (5.1 - 10.4 %) 6.0 07/30 1512 Eos % (Auto) (0.1 - 3.0 %) 2.9 07/30 1512 Baso % (Auto) (0.1 - 1.0 %) 0.7 07/30 1512 Neut # (Auto) (K/mm3) 6.1 07/30 151 Lymph # (Auto) (K/mm3) 1.7 07/30 151 [place] # (Auto) (K/mm3) 0.5 07/30 151 Eos # (Auto) (K/mm3) 0.25 07/30 1512 Baso # (Auto) (K/mm3) 0.1 07/30 151 Serology Treponema pallidum Ab (NONREACTIVE) NONREACTIVE 07/30 1512 Hep Bs Antigen (NONREACTIVE) NONREACTIVE 07/30 1512 HIV 1 2 Antibody (NONREACTIVE) NONREACTIVE 07/30 1512 SARS-CoV-2 Ag (Rapid) (NEGATIVE) NEGATIVE 07/30 150 Results: no new labs, vital signs stable Discharge Summary General Problem List/A P: 1. Excessive growth affecting in third trimester 2. Uterine size-date discrepancy, third trimester 3. Group B Streptococcus carrier, +RV culture, currently 4. Anemia complicating , third trimester 5. state, gestational carrier 6. resulting from in vitro fertilization in third trimester 7. Abnormal O'Brewer glucose challenge test, antepartum Date of admission: Date of admission: 08/02/20 Admission diagnosis: anemia, GBS status (carrier), large for gestational age, suspected macrosomia, uterine size-date discrepancy, gestational carrier, IVF , abnl GCT/ml GTT Hospital course: primary admit, epidural anesthesia, nml postop/ postpart care Procedures: epidural anesthesia, primary CS delivery Discharge condition: stable Discharge to: Home/Self Care Discharge diagnosis: full-term uncomp delivery, GBS status (carrier), anemia ( acute on chronic), large for gestational age, macrosomia, uterine size-date discrepancy, gestational carrier, IVF , abnl GCT/nl GTT Discharge management: greater than 30 mins Additional Notes: O positive, Rubella immune Baby A: status: live born Gender: male 1 minute: 8 5 minutes: 9 Anomalies: none noted Plan: discharge today Vaginal packing at delivery: No Discharge Instructions Instructions: routine instr sheet given, instr and warnings rev'd, specific instr as noted Diet: Regular Activity: As Tolerated, No Driving (while taking narcotic meds), No [place] for 6 Wks, No Lifting >10lbs, No Sports/Activities, No Strenuous Activity, No Swimming, Nothing in vagina pre f/u, Shower Only, Walk 3 times a day Additional discharge routines: Attending Follow-Up, Wound/Dressing Care, Add. instructions Wound/dressing care: Clean wound daily, Keep wound clean and dry, OK to shower tomorrow Additional instructions: Call office if develops fevers (Temp >/= 100.4), nausea, vomiting, severe abdominal pain or heavy vaginal bleeding Contraception discussed: abstinence for 4-6 weeks, s/p vasectomy Discharge meds: Continue taking these [...] Attending physician follow up timeframe: In 2 wks at 1249 RPT #:[id number] END OF REPORT [facility] 2020-08-04 14:09:00 [facility] ([facility]) OB Postpart Progr Note REPORT#:[id number] REPORT STATUS: Signed DATE:08/04/20 TIME: 1409 PATIENT: CAITLYN ARNOLD UNIT #: [id number] ROOM/BED: [address] : [birth year] AGE: 29 SEX: F ATTEND: Maria Arnold MD ADM AUTHOR: Maria Arnold MD * ALL edits or amendments must be made on the electronic/computer document * Subjective Subjective Admission EGA: Weeks: 39 Days: 1 EGA at delivery (wks/days): 39 weeks (1 day) Status/day: post operative (day 2) Patient reports: Patient reports: Yes: normal lochia, pain management effective, tolerating po well, voiding well, voiding without pain, tolerating ambulation, flatus. No: complaints, nausea, vomiting, excessive bleeding. Objective Nursing Documentation Review Nursing data: The data set between the solid lines has been imported from nursing documentation. Any exceptions have been noted below under Provider comments. Feeding preference: Provider comments [...] Abdomen: soft, appropriately tender Incision site: well approximated edges, bertha intact (Insorb), dressing clean dry, dry, no drainage, no inflammation Uterus: firm, involution appropriate Fundus: firm, below the umbilicus, non-tender Lochia: normal Lower extremities: Edema: none Calf tenderness: negative Result Results: no new labs, vital signs stable Diagnosis, Assessment Plan Diagnosis, Assessment Plan Problem List/A P: 1. Excessive growth affecting in third trimester 2. Uterine size-date discrepancy, third trimester 3. Group B Streptococcus carrier, +RV culture, currently 4. Anemia complicating , third trimester 5. state, gestational carrier 6. resulting from in vitro fertilization in third trimester 7. Abnormal O'Brewer glucose challenge test, antepartum Assessment: nml progress, acute on chronic blood loss anemia, O pos, RI Plan: routine care, discharge tomorrow, OOB/ambulation, po analgesia prn, FeSO4 supplementation bid Plan discussed with: patient, spouse/partner at 1410 RPT #:[id number] END OF REPORT [facility] 2020-08-04 08:59:00 [id number] [facility] [id number] PATIENT NAME: CAITLYN ARNOLD ADMIT DATE: 08/02/20 ACCOUNT NO: [id number] ROOM NO: [facility] AGE: 29 SEX: F ADMITTING PHYSICIAN: Maria [...] positive PROCEDURE: 1. Primary low segment transverse section 2. Left paratubal cystectomy SURGEON: Maria Arnold MD COLOR WEIGHER SURGEON: SAIGE Membreno ANESTHESIA: Combined spinal-epidural COMPLICATIONS: None ESTIMATED BLOOD LOSS: 800 mL INTRAVENOUS FLUIDS: 2700 mL crystalloid URINE OUTPUT: Weeks catheter to gravity, draining 50 mL of clear urine at the end of the procedure. FINDINGS: A viable male infant delivered in cephalic presentation at 1325 hours. Amniotic fluid is clear. No cord complications. Apgars 8 at 1 minute and 9 at 5 minutes. Weight 10 pounds, 14.606 ounces (4950 grams). NICU team called to delivery secondary to tachypnea. Normal uterus, fallopian PATIENT NAME: CAITLYN ARNOLD tubes, and ovaries bilaterally. Three pedunculated paratubal cysts were identified on the left fallopian tube, which were excised. PROCEDURE IN DETAIL: The patient was taken to the operating room with IV fluids running. She was placed in a sitting position, where a combined spinal-epidural was successfully placed. She was then repositioned supine and frog-legged, at which time a vaginal prep was performed and a Weeks catheter was sterilely placed in order to provide a means of bladder deflation. Her legs were straightened and systemic compression devices were applied to her lower extremities. She was then placed in left lateral displacement, where her abdomen was prepped and draped in the usual sterile fashion. A skin test was performed with adequate analgesia noted. A Pfannenstiel skin incision was then created approximately 2 cm above the symphysis pubis and this was carried down to the underlying layer of fascia using the Bovie. Any perforating vessels encountered were cauterized. Once the fascia was identified, it was incised in a transverse fashion with the incision extended bilaterally using Perkins scissors. Theron clamps were used to grasp the superior aspect of the fascial incision, which was elevated and tented with the underlying rectus muscles dissected off. The rectus muscles were in the midline and the underlying peritoneum was identified and entered bluntly. The peritoneal incision was extended superiorly and inferiorly taking care to avoid the bladder. A bladder blade was placed into the abdomen and the vesicouterine peritoneum was identified, grasped with smooth pickups, and entered sharply using Metzenbaum scissors. This incision was extended transversely and the bladder flap was created digitally. The bladder blade was then repositioned retracting the bladder and the lower uterine segment was incised in a transverse fashion. Entry into the uterine cavity demonstrated clear amniotic fluid. The uterine incision was extended transversely using bandage scissors. A hand was placed into the uterus, at which time the infant's head was grasped. An attempt was made for delivery, which was unsuccessful secondary to the large size of the vertex. The muscles were then transected bilaterally, creating more room. The infant's head was then delivered easily. The mouth and nares were aspirated upon delivery of the head. No nuchal cords were identified. The 's shoulders, torso, and lower extremities were delivered without incident. The cord was doubly clamped and cut and the was handed to the awaiting staff with a spontaneous cry. Cord blood was collected and sent for routine analysis. The placenta was manually extracted, grossly intact. The uterus was exteriorized, wrapped in a moist laparotomy pad, and the interior was wiped clean of all clots and debris. The uterine incision was repaired using 0-Monocryl in a running, interlocked fashion. A second imbricating layer was placed using the same suture with excellent hemostasis noted. The fallopian tubes and ovaries were inspected and appeared healthy bilaterally. Three peduculated paratubal cysts were identified from the left fallopian tubes, each hanging from its own stalk. All three stalks were grasped using a hemostat and a free tie of 2- 0 Vicryl was placed beneath the hemostat. The stalks were incised above the hemostat and the free end was cauterized. The hemostat was released with good hemostasis noted. At that point, attention was turned to the rectouterine pouch, which was copiously irrigated with removal of any retained amniotic fluid or blood. The uterus and adnexa were subsequently returned to the abdomen in their anatomic positions. The paracolic gutters were cleansed bilaterally using moist laparotomy pads. During that time, the left adnexa was observed with good hemostasis observed at the operative site. The vesicouterine pouch was wiped clean of any retained amniotic fluid or blood. Repeat exploration of the uterine incision demonstrated no further evidence of bleeding, hence closure was begun. The parietal peritoneum was reapproximated PATIENT NAME: CAITLYN ARNOLD using 3-0 Vicryl in a running fashion. Next, the transected rectus muscles were reapproximated on each side using 3 mattress stitches of 2-0 Chromic. The rectus muscles were then reapproximated in the midline using 2-0 Chromic in a running fashion. The fascia was closed using 0-PDS beginning from the left and right lateral aspects and ending medially. The subcutaneous layers were copiously irrigated and any identified bleeders were made hemostatic with the Bovie. This layer was subsequently reapproximated using 2-0 Vicryl in a running fashion followed by skin closure in a subcuticular fashion using Insorb bertha. The wound was washed and dressed with Dermabond placed along the entire length of the incision. The patient tolerated the procedure well. All intraoperative counts were confirmed as being correct. She was transferred to the recovery room in satisfactory condition. Dictated By: Maria Arnold MD WT: OP:[email or web address] Conf#: [id number]/DID#: [id number] Authenticated and Edited by Maria Arnold MD On 09/17/20 12:28:06 AM at 0029 PATIENT NAME: CAITLYN ARNOLD [facility] 2020-08-03 15:33:00 [facility] ([facility]) OB Postpart Progr Note REPORT#:[id number] REPORT STATUS: Signed DATE:08/03/20 TIME: 1533 PATIENT: CAITLYN ARNOLD UNIT #: [id number] ROOM/BED: [address] : [address] AGE: 29 SEX: F ATTEND: Maria Arnold MD ADM AUTHOR: Maria Arnold MD * ALL edits or amendments must be made on the electronic/computer document * Subjective Subjective Admission EGA: Weeks: 39 Days: 1 EGA at delivery (wks/days): 39 weeks (1 day) Status/day: post operative (day 1) Patient reports: Patient reports: Yes: normal lochia, pain management effective, tolerating po well, voiding well, voiding without pain. No: complaints, flatus, bowel movement, nausea, vomiting, excessive bleeding. Objective Nursing Documentation Review Nursing data: The data set between the solid lines has been imported from nursing documentation. Any exceptions have been noted below under Provider comments. Feeding preference: Provider comments on imported nursing data: [] General VS: Vital Signs Date Temp Pulse Resp B/P B/P Mean Pulse Ox FiO2 08/02-08/03 97.4-99.0 65-91 - 112-144/62-86 84.0-110.0 95-100 Last Documented: Result Date Time B/P Mean 84.0 08/03 1212 Pulse Ox 99 08/03 1212 B/P 114/69 08/03 1212 Temp 98.8 08/03 1212 Pulse 75 08/03 1212 Resp 17 08/03 1212 Patient Weight Weight (lb): 184 Weight (oz): Weight (kg): 83.461 Physical Exam Neuro: Exam: alert, normal speech Abdomen: soft, appropriately tender Incision site: well approximated edges, bertha intact (Insorb), dressing clean dry, [...] Problem List/A P: 1. Excessive growth affecting in third trimester 2. Uterine size-date discrepancy, third trimester 3. Group B Streptococcus carrier, +RV culture, currently 4. Anemia complicating , third trimester 5. state, gestational carrier 6. resulting from in vitro fertilization in third trimester 7. Abnormal O'Brewer glucose challenge test, antepartum Assessment: nml progress, acute on chronic blood loss anemia, O pos, RI Plan: routine care, OOB/ambulation, po analgesia prn, FeSO4 supplementation bid Plan discussed with: patient, spouse/partner at 1537 RPT #:[id number] END OF REPORT [facility] 2020-08-02 15:11:00 [facility] ([facility]) OB Delivery Note REPORT#:[id number] REPORT STATUS: Signed DATE:08/02/20 TIME: 1511 PATIENT: CAITLYN ARNOLD UNIT #: [id number] ROOM/BED: [facility] : 91 AGE: 29 SEX: F ATTEND: Maria Arnold MD ADM AUTHOR: Maria Arnold MD * ALL edits or amendments must be made on the electronic/computer document * OB Delivery Nursing Documentation Review Nursing data: The data set between the solid lines has been imported from nursing documentation. Any exceptions have been noted below under Provider comments. _ ROM date: 08/02/20 ROM time: 1324 Membranes rupture method: AROM Amniotic fluid color: Clear Amniotic fluid amount: Steroids prior to arrival: Antibiotic prophylaxis given: Yes [place] evaluation at delivery: Delivery date A: 08/02/20 Delivery time infant A: 1325 Birthweight (gm) infant A: 4950 Weight (lb) infant A: Weight (oz) A: Gender A: Male 1 minute infant A: 5 minutes infant A: 10 minutes A: Cord pH obtained A: Vacuum time A: Vacuum # pulls infant A: Vacuum # popoffs infant A: QBL at delivery: __ Provider comments on imported nursing data: [] Pre-delivery GBS status: GBS status: positive Prophylaxis administered: ancef Meds prior to delivery: ancef evaluation at delivery: NRP certified personnel, TILE HELPER (called for tachypnea) Admission EGA: Weeks: 39 [...] Anomalies: none noted Delivery section indication: lga/excessive growth, suspected macrosomia Priority: scheduled Antibiotic prior to incision: 1 dose )(SCDs applied activated: Yes Uterine incision: low transverse Consent: indication discussed, questions answered, pt consent to op delivery Mother's condition: mother stable Infant's condition: stable in room Op/Inv Proc Note - Brief )(Start date: 08/02/2020 )( Procedure(s) performed: prim low transverse c/s, left paratubal cystectomy )( Primary Surgeon: Jin Arnold MD )( Matte Cutter(s): SAIGE Christie )( Pre-procedure diagnosis: 1. IUP @ 39w1d 2. Large for Gestational Age 3. Suspected Macrosomia - EFW 4451 gm (>90%) 4. Uterine Size-date Discrepancy 5. Maternal Anemia 6. GBS (+) )( Post-procedure diagnosis: same )( Technique/Procedure: see dictated operative report Anesthesia: combined spinal/epidural )( Estimated blood loss (ml): 800 )( Specimen removed/altered: Left paratubal cysts x3 )( Complications: none Drain(s): Weeks Fluids: 2700 ml Urine output: 50 ml )( Finding(s): Viable male @ 1325, vertex, clear AF, no cord complications. Apgars 8/9. Weight 10 lb, 14.61 oz (4950 gm). NICU called secondary to tachypnea. Normal uterus, fallopian tubes, and ovaries B/L. Left paratubal cysts x3 all on pedunculated stalks. Condition: stable Blood Loss/Details Blood loss at delivery: <1000 ml at 1604 RPT #:[id number] END OF REPORT [facility] 2020-08-02 15:11:00 [facility] ([facility]) OB Delivery Note REPORT#:[id number] REPORT STATUS: Signed DATE:08/02/20 TIME: 1511 PATIENT: ACITLYN ARNOLD UNIT #: [id number] ROOM[address]BED: [address] : [address] AGE: 29 SEX: F ATTEND: Maria Arnold MD ADM AUTHOR: Maria Arnold MD * ALL edits or amendments must be made on the electronic/computer document * See Addendum OB Delivery Nursing Documentation Review Nursing data: The data set between the solid lines has been imported from nursing documentation. Any exceptions have been noted below under Provider comments. _ ROM date: 08/02/20 ROM time: 1324 Membranes rupture method: AROM Amniotic fluid color: Clear Amniotic fluid amount: Steroids prior to arrival: Antibiotic prophylaxis given: Yes evaluation at delivery: Delivery date infant A: 08/02/20 Delivery time infant A: 1325 Birthweight (gm) infant A: 4950 Weight (lb) infant A: Weight (oz) A: Gender infant A: Male 1 minute infant A: 5 minutes A: 10 minutes infant A: Cord pH obtained A: Vacuum time infant A: Vacuum # pulls A: Vacuum # popoffs A: QBL at delivery: __ Provider comments on imported nursing data: [] Pre-delivery GBS status: GBS status: positive Prophylaxis administered: ancef Meds prior to delivery: ancef evaluation at delivery: NRP certified personnel, TILE HELPER (called for tachypnea) Admission EGA: Weeks: 39 [...] Anomalies: none noted Delivery section indication: lga/excessive growth, suspected macrosomia Priority: scheduled Antibiotic prior to incision: 1 dose )(SCDs applied activated: Yes Uterine incision: low transverse Consent: indication discussed, questions answered, pt consent to op delivery Mother's condition: mother stable Infant's condition: stable in room Op/Inv Proc Note - Brief )(Start date: 08/02/2020 )( Procedure(s) performed: prim low transverse c/s, left paratubal cystectomy )( Primary Surgeon: Jin Arnold MD )( Matte Cutter(s): SAIGE Christie )( Pre-procedure diagnosis: 1. IUP @ 39w1d 2. Large for Gestational Age 3. Suspected Macrosomia - EFW 4451 gm (>90%) 4. Uterine Size-date Discrepancy 5. Maternal Anemia 6. GBS (+) )( Post-procedure diagnosis: same )( Technique/Procedure: see dictated operative report Anesthesia: combined spinal/epidural )( Estimated blood loss (ml): 800 )( Specimen removed/altered: Left paratubal cysts x3 )( Complications: none Drain(s): Weeks Fluids: 2700 ml Urine output: 50 ml )( Finding(s): Viable male @ 1325, vertex, clear AF, no cord complications. Apgars 8/9. Weight 10 lb, 14.61 oz (4950 gm). NICU called secondary to tachypnea. Normal uterus, fallopian tubes, and ovaries B/L. Left paratubal cysts x3 all on pedunculated stalks. Condition: stable Blood Loss/Details Blood loss at delivery: <1000 ml at 1604 Addendum 1: 08/02/20 1604 by Maria Arnold MD Post procedure diagnosis: 7. Left Paratubal Cysts x3 at 1605 RPT #:[id number] END OF REPORT [facility] 2020-08-02 12:29:00 [facility] ([facility]) OB Admission / H P REPORT#:[id number] REPORT STATUS: Signed DATE:08/02/20 TIME: 1229 PATIENT: CAITLYN ARNOLD UNIT #: [id number] ROOM/BED: [facility] : 91 AGE: 29 SEX: F ATTEND: Maria Arnold MD ADM AUTHOR: Maria Arnold MD * ALL edits or amendments must be made on the electronic/computer document * OB History Nursing Documentation Review Nursing data: The data set between the solid lines has been imported from nursing documentation. Any exceptions have been noted below under Provider comments. Current data Steroids prior [...] HPI: Patient presents to undergo elective primary section secondary to excessive growth (EFW 4451 @ 38 wks, >90%) and uterine size-date discrepancy. She is a gestational carrier who is s/p IVF via [facility]. She reports occasional, irregular CTX and active FM. She denies VB or LOF. The intended parents have arrived from [place] and are present for the delivery. history: : 5 Term: 3 : 0 Abortus: 1 Living children: 3 Complications (prev preg): none Previous : none Comments: G1 - 06/06/2012 - 40.1 wks - - Female (Lylah) - 7 lb, 1 oz - [place], [place] - no complications G2 - 09/2013 - 4-6 wks - SAB - no D C needed; no complications G3 - 08/23/2014 - 38+ wks - - Male (Michelet) - 7 lb, 12 oz - [place], [place] - no complications G4 - 07/27/2017 - 39 wks - - Male (Andrews) - 8 lb, 12 oz - [facility] - IOL secondary to suspected macrosomia; no complications Current : Best EDC: 08/08/20 Admission EGA (weeks) 39 Admission EGA (days) 1 EDC based on: LMP, FET date Steroids prior to delivery: N/A Conditions of : anemia (chronic), GBS status (carrier), LGA (EFW 4451 gm @ 38 wks, > 90%), uterine size-date discrepancy, gestational carrier, IVF , abnl GCT/nl GTT Labs: Blood type: O Rh: positive Rubella: immune Hepatitis B: negative HIV: negative STD: negative Syphilis: currently negative GBS: positive Date Rhogam administered: N/A Procedures: ultrasound, non stress test Genetic testing: neural tube defect (negative), sickle cell disease (negative), thalassemia (negative) Past medical history: denies PMH Past surgical history: 2014 - B/L breast reduction Social history: unemployed (student), , no alcohol use, no tobacco use, no drug use Family history Family history was reviewed; no changes noted. Medications: Home Medications: PNV WITH FE FUMARATE/FA () 1 TAB PO DAILY IRON (EZFE 200) 200 MG PO DAILY Allergies Coded Allergies: No Known Allergies (07/15/20) Review of Systems Constitutional: Denies: chills, fever. Skin: Denies: rash. Respiratory: Denies: hemoptysis, non productive cough, productive cough (sputum), SOB, wheezing. Cardiovascular: Denies: chest pain, CHANG (dyspnea on exertion), palpitations. GI: Denies: abdominal pain, constipation, diarrhea, nausea, vomiting. : Reports: , previous pregnancies. Denies: dysuria, hematuria, urgency, vaginal bleeding. Objective General VS: Last Documented: Result Date Time B/P Mean 87.0 08/02 1100 B/P 118/67 08/02 1100 Pulse 70 08/02 1100 Resp 08/02 1058 Vital Signs Date Temp Pulse Resp B/P B/P Mean Pulse Ox FiO2 08/02 70 19 118/ 87.0 Patient Weight Weight (lb): 184 Weight (oz): Weight (kg): 83.065170 Physical Exam HEENT: normocephalic w/o injury, no scleral icterus Breasts: deferred Neuro: Exam: alert, normal speech [...] (10.7 - 13.9 g/dL) 8.9 L 07/30 1512 Hct (32.1 - 42.1 %) 31.9 L [...] (14.3 - 34.3 %) 19.7 07/30 1512 [place] % (Auto) (5.1 - 10.4 %) 6.0 07/30 1512 Eos % (Auto) (0.1 - 3.0 %) 2.9 07/30 1512 Baso % (Auto) (0.1 - 1.0 %) 0.7 07/30 1512 Neut # (Auto) (K/mm3) 6.1 07/30 1512 Lymph # (Auto) (K/mm3) 1.7 07/30 1512 [place] # (Auto) (K/mm3) 0.5 07/30 1512 Eos # (Auto) (K/mm3) 0.25 07/30 1512 Baso # (Auto) (K/mm3) 0.1 07/30 1512 Serology Treponema pallidum Ab (NONREACTIVE) NONREACTIVE 07/30 1512 Hep Bs Antigen (NONREACTIVE) NONREACTIVE 07/30 1512 HIV 1 2 Antibody (NONREACTIVE) NONREACTIVE 07/30 1512 SARS-CoV-2 Ag (Rapid) (NEGATIVE) NEGATIVE 07/30 150 Results: labs reviewed, vital signs stable Diagnosis, Assessment Plan Diagnosis, Assessment Plan Problem List/A P: 1. Excessive growth affecting in third trimester 2. Uterine size-date discrepancy, third trimester 3. Group B Streptococcus carrier, +RV culture, currently 4. Anemia complicating , third trimester 5. state, gestational carrier 6. resulting from in vitro fertilization in third trimester 7. Abnormal O'Brewer glucose challenge test, antepartum Assessment/Impression: reassuring status, membranes intact, reactive NST, no evidence of labor Plan: admit to inpatient, scheduled , IVF, DVT prophylaxis, ptaient's will be in attendance for the delivery to provide spousal support as will the intended parents for the of their child, the above has been coordinated with the OR Reason-sched C section: suspected macrosomia Plan discussed with: patient, spouse/partner, nurse at 1547 RPT #:[id number] END OF REPORT [facility] 2020-07-15 15:49:00 [facility] ([facility]) EMERGENCY PROVIDER REPORT REPORT#:[id number] REPORT STATUS: Signed DATE:07/15/20 TIME: 154 PATIENT: CAITLYN ARNOLD UNIT #: [id number] ROOM/BED: AGE: 29 SEX: F PCP PHYS: No Primary or Family Physician SERVICE AUTHOR: Yaima Mcmahon MD * ALL edits or amendments must be made on the electronic/computer document * [facility] History Chief complaint: uterine contractions HPI: Called by RN to see patient. pt arrived 2 hours ago 29y/o EDC: 08/08/2020 @ 36 weeks 4days presents to [facility] with ctx q 7- 9min. No LOF/VB/+FM. This is a surrogate . denies any COVID sx. RN spoke with Dr. Arnold and wanted pt to be monitored and rechecked. Past medical history: denies PMH [...] Review of Systems Constitutional: Denies: chills, fatigue, fever, generalized weakness, lethargy, malaise, recent wt loss, other. Skin: Denies: rash, swelling. Allergy/Immun: Denies: rhinorrhea, sneezing. Eyes: Denies: visual loss/blurred. ENT: Denies: nasal congestion, sinus problem, sore throat, throat pain. Respiratory: Denies: CHANG (dyspnea on exertion), hemoptysis, non productive cough, parox nocturnal dyspnea, pleurisy, pleuritic pain, pneumonia, productive cough (sputum ), SOB, wheezing, other. Cardiovascular: Denies: chest pain, CHANG (dyspnea on exertion), edema, orthopnea, palpitations, parox nocturnal dyspnea, other. GI: Denies: abdominal pain, anorexia, constipation, diarrhea, dysphagia, GERD, hematemesis, hematochezia, hiatal hernia, melena, nausea, rectal pain, vomiting, other. : Reports: . Denies: dysuria, flank pain, frequency, hematuria, nocturia, pelvic pain, urgency, urinary retention, vaginal bleeding, vaginal discharge, other. Musculoskeletal: Denies: extremity pain, extremity swelling, myalgias. Neuro: Denies: bladder dysfunction, bowel dysfunction, change in LOC, confusion, dizziness, focal weakness, gait problem, headache, lightheaded, numbness, seizure, slurred speech, spinning sensation, syncope, unable to speak, vision change, weakness, other. Objective General VS: Patient Weight Weight (lb): 181 Weight (oz): Weight (kg): 82.1 Physical Exam HEENT: normocephalic w/o injury Cardiac: regular rate and rhythm Lungs: clear to auscultation Breasts: deferred Neuro: Exam: alert, oriented x3, normal speech Abdomen: gravid, soft, no abnormal tenderness, normoactive bowel sounds Uterine activity: Monitor: toco Frequency (description): occasional Cervical/ exam: Dilatation (cm): 1 (exam by rn repeat unchanged) Effacement (%): 50 station: - 3 FHR evaluation: Baseline: 135 bpm Variability: moderate 6-25 bpm Accelerations: 15 X 15 Decelerations: none FHR category: reactive Membranes: Membranes: Intact Lower extremities: Edema: none Calf tenderness: negative Diagnosis, Assessment Plan Diagnosis, Assessment Plan Free Text A P: IUP @ 36 weeks 4 days [place] not in PTL. AVSS FHR reactive Plan: discharge home PTL warnings given f/u primary ob at 1558 RPT #:[id number] END OF REPORT [facility]
[2025-01-20 10:48] LABS: Absolute Eosinophils 0.1 K/uL (0-0.5); Absolute Lymphocytes (CBC) 1.5 K/uL (0.7-4.9); Absolute Monocytes 0.7 K/uL (0.1-1.3); Absolute Neutrophil 16.6 K/uL (1.8-8.0); Basophils % 0.2 % (0-1.3); Eosinophils % 0.5 % (0-4.4); Hematocrit 41.6 % (36.0-45.0); Hemoglobin 14.5 g/dL (12.0-15.0); Lymphocytes % 8.1 % (15.3-44.8); MCH 32.1 pg (27.0-35.0); MCHC 34.9 g/dL (32.0-36.0); MPV 8.6 fL (7.6-11.3); Monocytes % 3.7 % (3.3-12.3); Neutrophils % 87.5 % (41.7-73.7); Platelets 274 thou/uL (152-406); RBC Red Blood Cell Count 4.53 M/uL (3.86-4.86); Red Cell Distribution Width 12.3 % (12.1-15.2)
[2025-01-20 11:02] LABS: Specific Gravity 1.027 (1.005-1.030)
[2025-01-20 11:03] LABS: Specific Gravity 1.027 (1.005-1.030); Sqamous Epithelial <5 /HPF (None Seen); Urine Bacteria None Seen /HPF (<20); Urine Bilirubin NEGATIVE (Negative); Urine Blood Trace (Negative); Urine Clarity Clear (Clear); Urine Color Light-Yellow (Yellow); Urine Crystals Unidentified Few /HPF (None Seen); Urine Culture Reflex Order NOT NEEDED; Urine Glucose NEGATIVE (Negative); Urine Ketones NEGATIVE (Negative); Urine Microscopic Reflex YN ORDER UMIC; Urine Mucus 2+ /HPF (None Seen); Urine Nitrite NEGATIVE (Negative); Urine Protein NEGATIVE (Negative); Urine RBC <5 /HPF (None Seen); Urine Urobilinogen Normal (Normal); Urine WBC <5 /HPF (<5); Urine Yeast (Budding) Trace /HPF (None Seen)
[2025-01-20 11:05] LABS: Anion Gap 9.8 mEq/L (5.0-15.0); Bilirubin Total 0.6 mg/dL (0.2-1.0); Globulin 4.1 g/dL (2.3-3.5); Potassium 3.8 mEq/L (3.5-5.1); Protein, Total 8.1 g/dL (6.4-8.2)
[2025-01-20] MEDS ORDERED: NA CHLORIDE 0.9% 1,000 ML ONE (11:48)
--- NOTE | 2025-01-20 11:49 | RAD REPORT ---
EXAMINATION: Abdomen Pelvis W Contrast CLINICAL INDICATION: Female, 34 years old.ABD PAIN TECHNIQUE: CT abdomen and pelvis was performed, after the administration of IV contrast, as per [facility] protocol. Axial, sagittal and coronal reconstructions were obtained. One or more of the following dose reduction techniques were used: Automated exposure control, adjustment of the mA and/o r kV according to patient size, and/or iterative reconstruction. Unless otherwise specified, incidental findings do not require dedicated imaging follow-up. [id number]. COMPARISON: No prior exam. FINDINGS: LOWER CHEST: No acute process identified.No significant pericardial effusion. UPPER GI: No significant abnormality. LIVER: No significant focal abnormality. GALLBLADDER/BILE DUCTS: No biliary ductal dilatation.? PANCREAS: No mass, ductal dilation, or carolann-pancreatic fluid. SPLEEN: Unremarkable. ADRENALS: No adrenal masses. KIDNEYS AND URETERS: No hydronephrosis.No suspicious renal mass.No renal calculi.No ureteral calculi. ABDOMINAL AORTA AND OTHER VESSELS: Normal caliber aorta and IVC. PERITONEUM: No abnormal free fluid. No free air. LYMPH NODES: No pathologic lymphadenopathy. ABDOMINAL WALL: Unremarkable SMALL BOWEL/COLON: Dense contents present within the small bowel within the pelvis. This may be recen tly ingested material. No bowel obstruction identified. Question mild diffuse thickening of the colon versus underdistention..Nonvisualized appendix but no secondary signs of acute appendicitis. URINARY BLADDER: Circumferential bladder wall thickening which could reflect cystitis. Correlate with urinalysis. REPRODUCTIVE ORGANS: Corpus luteal cyst in the right ovary measuring 16mm. MUSCULOSKELETAL: No acute or suspicious osseous abnormality. ADDITIONAL FINDINGS: None. IMPRESSION: No definite acute findings identified. Question mild diffuse colonic wall thickening (i.e. colitis) v ersus underdistention. Appendix not identified but no secondary signs of acute appendicitis. Dense contents in the distal small bowel presumably recently ingested material. No bowel obstruction. Bladder wall thickening. Correlate with urinalysis to exclude cystitis.
[2025-01-20 13:23] LABS: CDIFF INTERNAL NEG CONTROL White Background (WHITE BKGD); STOOL CONSISTENCY Liquid/Semi-Solid
[2025-01-20 13:24] LABS: C.diff Antigen/Toxin Ag pos : Tox pos (NEG : NEG)
--- NOTE | 2025-01-20 13:33 | ER ---
Nurse's Notes [facility] René Name: Ana Maria Arnold Age: 34 yrs Sex: Female : 1990 Arrival Date: 01/20/2025 Time: 09:54 Bed 17 Private MD: Diagnosis: Enterocolitis due to Clostridium difficile;Diarrhea, unspecified;Leukocytosis Presentation: 01/20 10:20 Chief complaint: Patient states: diarrhea X 1 week, started abx for sinus infection, iw having continued diarrhea and stomach cramps. Coronavirus screen: At this time, the client does not indicate any symptoms associated with coronavirus-19. Ebola Screen: No symptoms or risks identified at this time. Initial Sepsis Screen: Does the patient meet any 2 criteria? No. Patient's initial sepsis screen is negative. Does the patient have a suspected source of infection? No. Patient's initial sepsis screen is negative. Risk Assessment: Do you want to hurt yourself or someone else? Patient reports no desire to harm self or others. Onset of symptoms was January 13, 2025. 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 - Infectious Disease History:: Denies. - Social history:: Smoking status: . Screenin:18 [facility] ED Fall Risk Assessment (Adult) History of falling in the last 3 months, cm10 including since admission No falls in past 3 months (0 pts) Confusion or Disorientation No (0 pts) Intoxicated or Sedated No (0 pts) Impaired Gait No (0 pts) Mobility Assist Device Used No (0 pt) Altered Elimination No (0 pt) Score/Fall Risk Level 0 - 2 = Low Risk Oriented to surroundings, Maintained a safe environment, Hourly rounding (assess needs \T\ fall precautionary measures) done. Abuse screen: Denies threats or abuse. Denies injuries from another. Nutritional screening: No deficits noted. Tuberculosis screening: No symptoms or risk factors identified. Assessment: 12:18 General: Appears in no apparent distress. comfortable, Behavior is calm, cooperative. cm10 Pain: Complains of pain in abdomen Pain currently is 8 out of 10 on a pain scale. Neuro: No deficits noted. Level of Consciousness is awake, alert, obeys commands, Oriented to person, place, time, situation, Appropriate for age. Respiratory: No deficits noted. Airway is patent Respiratory effort is even, unlabored, Respiratory pattern is regular, symmetrical. GI: Abdomen is flat, Reports lower abdominal pain, upper abdominal pain, nausea. 13:07 Reassessment: Patient appears in no apparent distress at this time. Patient and/or cm10 family updated on plan of care and expected duration. Pain level reassessed. Patient is alert, oriented x 3, equal unlabored respirations, skin warm/dry/pink. 13:36 General: Vanc order faxed to pharmacy at this time.. cm10 Vital Signs: 10:20 BP 138 / 93; Pulse 89; Resp 16; Pulse Ox 100% on R/A; Weight 74.84 kg; Height 5 ft. 1 iw in. ; Pain 8/10; 10:23 Temp 98.4(O); iw 12:00 BP 122 / 79; Pulse 84; Resp 16; Pulse Ox 100% on R/A; cm10 15:24 BP 123 / 73; Pulse 85; Resp 16; Pulse Ox 100% on R/A; Pain 5/10; cm10 16:00 BP 111 / 61; Pulse 95; Resp 16; Pulse Ox 100% ; cm10 10:20 Body Mass Index 31.18 (74.84 kg, 154.94 cm) iw 10:20 Pain Scale: Adult iw 15:24 Pain Scale: Adult cm10 ED Course: 09:58 Patient arrived in ED. cj3 10:02 Dewayne Daley DO is Attending Physician. ms3 10:22 Triage completed. iw 10:22 Arm band placed on. iw 10:43 Lipase Sent. bc6 10:43 CBC with Diff Sent. bc6 10:43 CMP Sent. bc6 10:43 Initial lab(s) drawn, by me, sent to lab. Inserted saline lock: 20 gauge in right bc6 antecubital area, using aseptic technique. Blood collected. Flushed with 10 mL NS. 10:49 UA Rfx Ubaldo Cult if indicated Sent. bc6 10:49 Urine collected: clean catch specimen, clear. bc6 11:41 CT Abd/Pelvis - IV Contrast Only In Process Unspecified. EDMS 11:53 Jill Day, RN is Primary Nurse. cm10 12:18 Patient has correct armband on for positive identification. Bed in low position. Call cm10 light in reach. Side rails up X 1. Pulse ox on. NIBP on. 12:47 C.difficile Real-time Sent. cm10 13:32 Mare Rios MD is Hospitalizing Provider. ms3 16:00 Provided Education on: Need for admit. cm10 16:00 No provider procedures requiring assistance completed. cm10 16:00 Patient admitted, IV remains in place. cm10 Administered Medications: 12:17 Drug: NS 0.9% IV 1000 ml IV at 1 bolus Per protocol; to be given as a bolus over 60 cm10 minutes Route: IV; Rate: 1 bolus; Site: right antecubital; 13:06 Follow up: Response: No adverse reaction; IV Status: Completed infusion; IV Intake: cm10 1000ml 15:24 Drug: vancoMYCIN PO 125 mg PO once Route: PO; cm10 18:14 Follow up: Response: No adverse reaction cm10 Medication: 12:18 VIS not applicable for this client. cm10 Intake: 13:06 IV: 1000ml; Total: 1000ml. cm10 Outcome: 13:32 Decision to Hospitalize by Provider. ms3 16:00 Admitted to ER Hold. Please see [facility] for further documentation. cm10 16:00 Condition: stable cm10 16:00 Instructed on the need for admit, 19:21 Patient left the ED. cm10 Signatures: Dispatcher [employer] Mariela Holliday, RN RN Dewayne Lu DO DO ms3 Perla Carrillo bc6 Jill Day, RN RN Julianne Garcia cj3
--- NOTE | 2025-01-20 13:33 | EDPHYS ---
Physician Documentation [facility] Name: Ana Maria Arnold Age: 34 yrs Sex: Female : 1990 Arrival Date: 01/20/2025 Time: 09:54 Bed 17 Private MD: ED Physician Dewayne Daley HPI: 01/20 18:36 This 34 yrs old Female presents to ER via Ambulatory with complaints of ms3 Abdominal Pain, Back Pain, Nausea, Dizziness. 18:36 34-year-old female with past medical history of anemia presents to the emergency ms3 department for diarrhea. Patient was given a prescription for amoxicillin for sinusitis and then developed diarrhea. Patient was told to take probiotics and has not been unable to obtain the probiotics. Patient states she is having some lower abdominal pain with multiple episodes of diarrhea per day.. 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 - Infectious Disease History:: Denies. - Social history:: Smoking status: . ROS: 18:36 Constitutional: Negative for fever, and chills. Cardiovascular: Negative for chest ms3 pain, and palpitations. Respiratory: Negative for shortness of breath, cough, wheezing, and pleuritic chest pain, 18:36 MS/Extremity: Negative for injury and deformity, Skin: Negative for injury, rash, and discoloration, 18:36 Abdomen/GI: Positive for abdominal pain, diarrhea, Exam: 18:36 Constitutional: This is a well developed, well nourished patient who is awake, alert, ms3 and in no acute distress. Cardiovascular: Regular rate and rhythm with a normal S1 and S2. No gallops, murmurs, or rubs. Normal PMI, no JVD. No pulse deficits. Respiratory: Lungs have equal breath sounds bilaterally, clear to auscultation and percussion. No rales, rhonchi or wheezes noted. No increased work of breathing, no retractions or nasal flaring. Skin: Warm, dry with normal turgor. Normal color with no rashes, no lesions, and no evidence of cellulitis. 18:36 Abdomen/GI: Inspection: abdomen appears normal, Bowel sounds: normal, Palpation: moderate abdominal tenderness, in the right lower quadrant and left lower quadrant, Vital Signs: 10:20 BP 138 / 93; Pulse 89; Resp 16; Pulse Ox 100% on R/A; Weight 74.84 kg; Height 5 ft. 1 iw in. ; Pain 8/10; 10:23 Temp 98.4(O); iw 12:00 BP 122 / 79; Pulse 84; Resp 16; Pulse Ox 100% on R/A; cm10 15:24 BP 123 / 73; Pulse 85; Resp 16; Pulse Ox 100% on R/A; Pain 5/10; cm10 16:00 BP 111 / 61; Pulse 95; Resp 16; Pulse Ox 100% ; cm10 10:20 Body Mass Index 31.18 (74.84 kg, 154.94 cm) iw 10:20 Pain Scale: Adult iw 15:24 Pain Scale: Adult cm10 MDM: 11:04 Medical Screening Exam initiated ms3 18:36 Differential diagnosis: C. difficile versus diverticulitis versus electrolyte ms3 abnormality versus dehydration. Data reviewed: vital signs, nurses notes, lab test result(s), radiologic studies, and as a result, I will admit patient. Consideration of Admission/Observation Patient was admitted/placed on observation. Management of patient was discussed with the following: Hospitalist: Dr Rios. I considered the following discharge prescriptions or medication management in the emergency department Medications were administered in the Emergency Department. See MAR. Counseling: I had a detailed discussion with the patient and/or guardian regarding the historical points, exam findings, and any diagnostic results supporting the discharge/admit diagnosis, lab results, radiology results, the need for further work-up and treatment in the hospital. ED course: Discussed C. difficile toxin being positive, white blood count being elevated at 19 with patient. Recommended admission and patient understands agrees with plan. All questions were answered.. 01/20 10:09 Order name: CBC with Diff ms3 01/20 10:09 Order name: CMP; Complete Time: 12:04 ms3 01/20 10:09 Order name: Lipase; Complete Time: 12:04 ms3 01/20 10:09 Order name: Test, Urine; Complete Time: 11:03 ms3 01/20 10:09 Order name: UA Rfx Ubaldo Cult if indicated; Complete Time: 11:03 ms3 01/20 11:03 Order name: C.difficile Real-time ms3 01/20 11:05 Order name: CBC Smear Scan EDMS 01/20 12:58 Order name: CDIFF; Complete Time: 13:30 eb 01/20 14:19 Order name: UA Rfx Ubaldo Cult if indicated EDMS 01/20 14:19 Order name: Basic Metabolic Panel EDMS 01/20 14:19 Order name: Basic Metabolic Panel EDMS 01/20 14:19 Order name: Basic Metabolic Panel EDMS 01/20 14:19 Order name: Basic Metabolic Panel EDMS 01/20 14:19 Order name: Basic Metabolic Panel EDMS 01/20 14:19 Order name: Basic Metabolic Panel EDMS 01/20 14:19 Order name: CBC with Automated Diff EDMS 01/20 14:19 Order name: CBC with Automated Diff EDMS 01/20 14:19 Order name: CBC with Automated Diff EDMS 01/20 14:19 Order name: CBC with Automated Diff EDMS 01/20 14:19 Order name: CBC with Automated Diff EDMS 01/20 14:19 Order name: CBC with Automated Diff EDMS 01/20 14:19 Order name: Magnesium EDMS 01/20 14:19 Order name: Magnesium EDMS 01/20 14:19 Order name: Magnesium EDMS 01/20 14:19 Order name: Magnesium EDMS 01/20 14:19 Order name: Magnesium EDMS 01/20 14:19 Order name: Magnesium EDMS 01/20 14:19 Order name: Phosphorus EDMS 01/20 14:19 Order name: Phosphorus EDMS 01/20 14:19 Order name: Phosphorus EDMS 01/20 14:19 Order name: Phosphorus EDMS 01/20 14:19 Order name: Phosphorus EDMS 01/20 14:19 Order name: Phosphorus EDMS 01/20 11:03 Order name: CT Abd/Pelvis - IV Contrast Only; Complete Time: 12:04 ms3 01/20 10:09 Order name: IV Saline Lock; Complete Time: 10:43 ms3 01/20 10:09 Order name: Labs collected and sent; Complete Time: 10:43 ms3 01/20 16:13 Order name: Contact Isolation; Complete Time: 16:19 ms3 Administered Medications: 12:17 Drug: NS 0.9% IV 1000 ml IV at 1 bolus Per protocol; to be given as a bolus over 60 cm10 minutes Route: IV; Rate: 1 bolus; Site: right antecubital; 13:06 Follow up: Response: No adverse reaction; IV Status: Completed infusion; IV Intake: cm10 1000ml 15:24 Drug: vancoMYCIN PO 125 mg PO once Route: PO; cm10 18:14 Follow up: Response: No adverse reaction cm10 Disposition Summary: 01/20/25 13:32 Hospitalization Ordered Notes: Hospitalization Status: Inpatient Admission ms3 Provider: Mare Rios ms3 Condition: Stable ms3 Problem: new ms3 Symptoms: are unchanged ms3 Bed/Room Type: Standard ms3 Location: Telemetry/MedSurg (Inpatient)(01/20/25 17:33) eb Room Assignment: [facility](01/20/25 17:33) eb Diagnosis - Enterocolitis due to Clostridium difficile ms3 - Diarrhea, unspecified ms3 - Leukocytosis ms3 Forms: - Medication Reconciliation Form ms3 - SBAR form ms3 - Leadership Thank You Letter ms3 Signatures: Dispatcher [employer] EDMS Mariela Lazcano, CHASIDY UMAÑA iw Jackelyn Le Marcus, DO DO ms3 Tiffanie Willingham RN RN kb3 Jill Day RN RN cm10 Corrections: (The following items were deleted from the chart) 10:10 10:09 CBC+H.LAB.BRZ ordered. EDMS EDMS 10:10 10:09 COMPREHENSIVE METABOLIC PANEL+C.LAB.BRZ ordered. EDMS EDMS 10:10 10:09 LIPASE+C.LAB.BRZ ordered. EDMS EDMS 10:10 10:10 Test, Urine+UC.LAB.BRZ ordered. EDMS EDMS 10:10 10:10 UA Rfx Ubaldo Cult if indicated+U.LAB.BRZ ordered. EDMS EDMS 16:31 13:32 Telemetry/MedSurg (Inpatient) ms3 kb3 16:31 13:32 ms3 kb3 17:33 16:31 [facility] ER HOLD kb3 eb 17:33 16:31 ERHOLD- kb3 eb
[2025-01-20 13:44] LABS: Blood Morphology Comment NOT SEEN (NOT SEEN); Platelet Estimate ADEQ; White Blood Cell Scan OK (OK)
[2025-01-20] MEDS ORDERED: ACETAMINOPHEN 325 MG TABLET PO PRN (14:14)
[2025-01-20] MEDS ORDERED: VANCOMYCIN ORAL SOLN 250 MG/5 ML OSYR PO SCH (14:45)
[2025-01-20] MEDS: VANCOMYCIN HCL 125 MG CAPSULE PO SCH (14:45)
[2025-01-20] MEDS: NA CHLORIDE 0.9% 1,000 ML IV SCH (15:00)
--- NOTE | 2025-01-20 15:10 | P.HP ---
Certification for Inpatient Patient admitted to: Inpatient With expected LOS: >2 Midnights <Kimberly Palm - Last Filed: 01/20/25 17:29> Patient History Date of Service: 01/20/25 Reason for admission: C Diff History of Present Illness: Ana Maria Arnold is a 34 year old female with a Pmhx anemia who presents to the ED chief complaint of severe abdominal pain and diarrhea for 1 week. she reports taking amoxicillin for sinus infection and started having diarrhea. She denies taking a PPI but reports taking multiple qsih-jet-saqybox medications to try to find relief. She denies having diarrhea in the past or any other bowel issues. 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 Laboratory evaluation significant for WBC 19, negative. CT abdomen pelvis reports "No definite acute findings identified. Question mild diffuse colonic wall thickening (i.e. colitis) versus underdistention. Appendix not identified but no secondary signs of acute appendicitis. Dense contents in the distal small bowel presumably recently ingested material. No bowel obstruction. Bladder wall thickening. Correlate with urinalysis to exclude cystitis" Ana Maria will be admitted to hospitalist service for further treatment of C Diff. - Past Medical/Surgical History -: anemia -: NVD 2011 and 2013 -: section -: hysterectomy -: breast reduction - Social History Smoking Status: Never smoker Alcohol use: Yes CD- Drugs: No Caffeine use: No <Kimberly Palm - Last Filed: 01/20/25 17:29> Date of Service: 01/20/25 <Mare Rios - Last Filed: 01/20/25 19:41> Allergies No Known Drug Allergies Allergy (Unverified 12/28/14 22:43) Unknown No Known Allergies Allergy (Uncoded 09/02/17 20:14) Unknown Home Medications: Sertraline [Zoloft] 100 mg PO DAILY 01/20/25 Review of Systems Other: Per HPI <Kimberly Palm - Last Filed: 01/20/25 17:29> Physical Examination - Physical Exam General: Alert, In no apparent distress, Oriented x3 HEENT: Atraumatic, Normocephalic Neck: Supple, 2+ carotid pulse no bruit Respiratory: Clear to auscultation bilaterally, Normal air movement Cardiovascular: No edema, Normal pulses, Regular rate/rhythm Capillary refill: <2 Seconds Gastrointestinal: Normal bowel sounds, Soft and benign Musculoskeletal: No clubbing Integumentary: No rashes Neurological: Normal speech, Normal tone - Studies Laboratory Data (last 24 hrs) 01/20/25 01/20/25 10:40 10:40 WBC 19.00 H Hgb 14.5 Hct 41.6 Plt Count 274 Sodium 139 Potassium 3.8 BUN 9 Creatinine 0.66 Glucose 103 Total Bilirubin 0.6 AST 12 L ALT 23 Alkaline Phosphatase 85 Lipase 21 <Kimberly Palm - Last Filed: 01/20/25 17:29> - Studies Laboratory Data (last 24 hrs) 01/20/25 01/20/25 10:40 10:40 WBC 19.00 H Hgb 14.5 Hct 41.6 Plt Count 274 Sodium 139 Potassium 3.8 BUN 9 Creatinine 0.66 Glucose 103 Total Bilirubin 0.6 AST 12 L ALT 23 Alkaline Phosphatase 85 Lipase 21 <Mare Rios - Last Filed: 01/20/25 19:41> Assessment and Plan - Plan Assessment and Plan C. difficile Leukocytosis -recent use of amoxicillin for sinusitis prior to diarrhea -Vancomycin p.o. -ID consulted -Gentle IVF -CLD -probiotics -Monitor BM closely -isolation precautions Anemia -Monitor H&H and transfuse as needed -H/H DVT PPx SCDs Full code LOS 2 to 3 days Discharge Plan: Home Plan to discharge in: 72 Hours - Advance Directives Does patient have a Living Will: No Does patient have a Durable POA for Healthcare: No <Kimberly Palm - Last Filed: 01/20/25 17:29> Physician Review: Patient Assessed, Agree with Above Assessment and Plan <Mare Rios - Last Filed: 01/20/25 19:41>
[2025-01-20 17:58] VITALS: BMI 31.1
[2025-01-20] MEDS: LACTOBACILLUS/ACIDOPHILUS TAB PO SCH (20:20)
[2025-01-21 06:59] LABS: Absolute Eosinophils 0.2 K/uL (0-0.5); Absolute Lymphocytes (CBC) 1.6 K/uL (0.7-4.9); Absolute Monocytes 0.5 K/uL (0.1-1.3); Absolute Neutrophil 8.1 K/uL (1.8-8.0); Basophils % 0.4 % (0-1.3); Eosinophils % 1.9 % (0-4.4); Hematocrit 37.9 % (36.0-45.0); Hemoglobin 13.2 g/dL (12.0-15.0); Lymphocytes % 15.2 % (15.3-44.8); MCH 31.5 pg (27.0-35.0); MCHC 34.7 g/dL (32.0-36.0); MCV 90.9 fL (80-100); MPV 8.5 fL (7.6-11.3); Monocytes % 4.9 % (3.3-12.3); Neutrophils % 77.6 % (41.7-73.7); Platelets 280 thou/uL (152-406); RBC Red Blood Cell Count 4.17 M/uL (3.86-4.86); Red Cell Distribution Width 12.1 % (12.1-15.2)
[2025-01-21 07:12] LABS: Anion Gap 8.8 mEq/L (5.0-15.0); Phosphorus 3.4 mg/dL (2.5-4.9); Potassium 3.8 mEq/L (3.5-5.1)
[2025-01-21] MEDS: POTASSIUM CL SA 10 MEQ TAB PO ONE (08:44)
[2025-01-21 09:22] VITALS: O2SAT 98
[2025-01-21 12:12] VITALS: BP 124/87; TEMP 97.6
--- NOTE | 2025-01-21 14:03 | P.DS ---
Admission Date: 01/20/25 Discharge Date: 01/21/25 Reason for Admission: C Diff Brief History of Present Illness: Diagnosis Clostridium difficile Leukocytosis Anemia HPI 01/20/2025 Ana Maria Arnold is a 34 year old female with a Pmhx anemia who presents to the ED chief complaint of severe abdominal pain and diarrhea for 1 week. she reports taking amoxicillin for sinus infection and started having diarrhea. She denies taking a PPI but reports taking multiple [id number] medications to try to find relief. She denies having diarrhea in the past or any other bowel issues. 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 Laboratory evaluation significant for WBC 19, negative. CT abdomen pelvis reports "No definite acute findings identified. Question mild diffuse colonic wall thickening (i.e. colitis) versus underdistention. Appendix not identified but no secondary signs of acute appendicitis. Dense contents in the distal small bowel presumably recently ingested material. No bowel o bstruction. Bladder wall thickening. Correlate with urinalysis to exclude cystitis" Ana Maria will be admitted to hospitalist service for further treatment of C Diff. Hospital Course: C. difficile Leukocytosis Anemia Recent use of amoxicillin for sinusitis prior to diarrhea Treated with Vancomycin p.o., probiotics with good results, abdominal pain has lessened this morning Patient was seen by infectious disease and cleared for discharge Diet was successfully advanced, tolerated well without nausea or vomiting Last diarrhea 01/20 Isolation precautions were adhered to this admission H&H 13/37, remained stable this admission On 01/21/2025, Ana Maria was seen on morning rounds hemodynamically stable. She reports abdominal pain has lessened considerably. She is tolerating p.o. diet and ambulating independently. Last diarrhea was yesterday (01/20). Dr. Solorzano has evaluated and cleraed for discharge. Vancomycin p.o. and probiotics prescribed . Physical Exam General: Alert and Oriented x3, NAD Neck: Supple, 2+ carotid pulse no bruit Respiratory: Clear BBS, Normal air movement, on RA Cardiovascular: RRR, normal S1 S2 present Capillary refill: <2 Seconds Gastrointestinal: Normal bowel sounds, Soft and benign on palpation Musculoskeletal: No clubbing Integumentary: No rashes Neurological: Normal speech, Normal tone <Kimberly Palm - Last Filed: 01/21/25 17:19> Admission Date: 01/20/25 Discharge Date: 01/21/25 Hospital Course: I hereby attest that I have reviewed and supervised the clinical work and documentation completed by Kimberly Palm NP. I have reviewed the patient care plans, assessment, and documentation plan as noted. <Mare Rios - Last Filed: 01/21/25 17:47> Disposition: ROUTINE DISCHARGE Discharge Condition: GOOD Vital Signs/Physical Exam: Temp Pulse Resp BP Pulse Ox 97.6 F 69 17 124/87 100 01/21/25 12:00 01/21/25 12:00 01/21/25 12:00 01/21/25 12:00 01/21/25 12:00 Laboratory Data at Discharge: WBC 10.40 thou/uL (4.3-10.9) 01/21/25 06:42 Hgb 13.2 g/dL (12.0-15.0) D 01/21/25 06:42 Hct 37.9 % (36.0-45.0) 01/21/25 06:42 Plt Count 280 thou/uL (152-406) 01/21/25 06:42 Sodium 139 mEq/L (136-145) 01/21/25 06:42 Potassium 3.8 mEq/L (3.5-5.1) 01/21/25 06:42 BUN 9 mg/dL (7-18) 01/21/25 06:42 Creatinine 0.50 mg/dL (0.55-1.02) L 01/21/25 06:42 Glucose 109 mg/dL (74-106) H 01/21/25 06:42 Phosphorus 3.4 mg/dL (2.5-4.9) 01/21/25 06:42 Magnesium 2.0 mg/dL (1.6-2.4) 01/21/25 06:42 Total Bilirubin 0.6 mg/dL (0.2-1.0) 01/20/25 10:40 AST 12 U/L (15-37) L 01/20/25 10:40 ALT 23 U/L (13-56) 01/20/25 10:40 Alkaline Phosphatase 85 U/L (45-117) 01/20/25 10:40 Lipase 21 U/L (13-75) 01/20/25 10:40 <Kimberly Palm - Last Filed: 01/21/25 17:19> Vital Signs/Physical Exam: Temp Pulse Resp BP Pulse Ox 97.6 F 69 17 124/87 100 01/21/25 12:00 01/21/25 12:00 01/21/25 12:00 01/21/25 12:00 01/21/25 12:00 Laboratory Data at Discharge: WBC 10.40 thou/uL (4.3-10.9) 01/21/25 06:42 Hgb 13.2 g/dL (12.0-15.0) D 01/21/25 06:42 Hct 37.9 % (36.0-45.0) 01/21/25 06:42 Plt Count 280 thou/uL (152-406) 01/21/25 06:42 Sodium 139 mEq/L (136-145) 01/21/25 06:42 Potassium 3.8 mEq/L (3.5-5.1) 01/21/25 06:42 BUN 9 mg/dL (7-18) 01/21/25 06:42 Creatinine 0.50 mg/dL (0.55-1.02) L 01/21/25 06:42 Glucose 109 mg/dL (74-106) H 01/21/25 06:42 Phosphorus 3.4 mg/dL (2.5-4.9) 01/21/25 06:42 Magnesium 2.0 mg/dL (1.6-2.4) 01/21/25 06:42 Total Bilirubin 0.6 mg/dL (0.2-1.0) 01/20/25 10:40 AST 12 U/L (15-37) L 01/20/25 10:40 ALT 23 U/L (13-56) 01/20/25 10:40 Alkaline Phosphatase 85 U/L (45-117) 01/20/25 10:40 Lipase 21 U/L (13-75) 01/20/25 10:40 <Mare Rios - Last Filed: 01/21/25 17:47> Diet: [place] Activity: Ad rebecca <Kimberly Palm - Last Filed: 01/21/25 17:19> <Mare Rios - Last Filed: 01/21/25 17:47> Home Medications: Sertraline [Zoloft*] 100 mg PO DAILY 01/20/25 Acidophilus/Bulgaricus [Lactinex Tablet Chewable] 1 each PO DAILY 10 Days #10 tab.chew 01/21/25 Vancomycin HCl 125 mg PO Q6HR 10 Days #40 cap 01/21/25 New Medications: Vancomycin HCl 125 mg PO Q6HR 10 Days #40 cap Acidophilus/Bulgaricus [Lactinex Tablet Chewable] 1 each PO DAILY 10 Days #10 tab.chew Physician Discharge Instructions: 1. Please call and schedule a follow-up appointment with your PCP in 3-5 days - Please follow-up with your PCP for medication refills/adjustments -please adhere to isolation precautions around family and friends as CDiff is contagious. Please avoid crowds until finished the antibiotic course 2. Continue bland diet as tolerated 3. no activity restrictions 4. Return to the ED if symptoms worsen, if diarrhea is not resolving or if abdominal pain worsens New medications vancomycin 125 mg Q6hr x ten days Lactinex (probiotic) once daily x tens day Followup: Earline Upton NP [Primary Care Provider] -
--- NOTE | 2025-01-21 16:35 | CON ---
History Of Present Illness: This is a 34-year-old female coming in for C diff colitis. The patient was admitted for severe abdominal pain and diarrhea for 1 week after she took some Amoxil for sinus i nfection. The patient denies any previous history of C diff colitis. 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 Den ies any other medical problems or aggravating factor for C diff colitis. Her CT scan at the time of admission shows patient has colitis with no signs of acute appendicitis. Past Medical History: Anemia. . Hysterectomy. Breast reduction. Social History: Nonsmoker. Occasional drinker. Family History: Noncontributory. Medications: P.o. vancomycin and probiotic. See MARs for other medications. Allergies: NO KNOWN DRUG ALLERGIES. Review of Systems: A 10-point review was performed. Physical Examination: General: This is a 34-year-old female, sitting in bed. Denies any problems today with no diarrhea. Vital Signs: Temperature 97, pulse 69, respirations 14, blood pressure 124/87. HEENT: Unremarkable. Neck: Supple. Lungs: Clear to auscultation. Heart: S1, S2. Regular. Abdomen: Soft. Bowel sounds present. Extremities: No edema. Laboratory Data: Shows WBC 10.4 down from 19,000, hemoglobin 13.2, platelets are 280. BUN of 9, cre atinine 0.5 with the C diff toxin positive. Assessment And Plan: 34-year-old female, otherwise with no other immunocompromising conditions, comi ng in with Clostridium difficile colitis after a course of Amoxil for sinusitis infection. She is sh owing significant improvement after initiating probiotic and vancomycin p.o. orally and rehydrating. Patient's symptoms have improved significantly. Leukocytosis has improved. We will recommend to continue probiotic for total of 10 days and vancomyc in for total of 10 days. If symptoms continue, return to hospital. 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 We will follow the patient as n ayden. Thank you, Dr. Rios, for consult. GRACIELA/YUDELKA Voice ID: [id number] Report ID: [id number]
== END 2025-01-21 15:30 | disposition home or self-care (01) | DRG 373 ==
LOC: ER 09:54 → ERHOLD 14:14 → 4TH 18:36
PROVIDERS: ADMIT Family Medicine; ATTEND Family Medicine
DX: A04.72 Enterocolitis due to Clostridium difficile, not specified as recurrent (principal); D64.9 Anemia, unspecified; Z79.899 Other long term (current) drug therapy; Z90.710 Acquired absence of both cervix and uterus
CPT/HCPCS: 36415; 74177; 80048; 80053; 81001; 81025; 83690; 83735; 84100; 85025; 87324; 96360; 99285; G0378; J7030; Q9967